=== PATIENT | male | born 1955 | race Caucasian/White ===

== ENCOUNTER → 2016-10-26 | Outpatient (CLI) | payer BC ==
[~2016-10-26] MED LIST: ASPI81TA25 PO; ATOR-24 PO; CLOP1TAB5 PO; LPR25 PO; NAPR-1169 PO; NTRSLP4 SL
--- NOTE | 2016-10-26 08:14 | DIAGNOSTIC IMAGING REPORT ---
ABDOMINAL ULTRASOUND, RIGHT UPPER QUADRANT HISTORY: Right upper quadrant pain.. COMPARISON: Abdomen and pelvis CT 04/26/2014. FINDINGS: Pancreas: The pancreatic head and tail are obscured by overlying bowel gas. The remaining portions of the pancreas are within normal limits. Liver: Unremarkable. Gallbladder: No gallbladder wall thickening. No gallstones. CBD: 5 mm. Right kidney: There is a 2.2 cm cyst within the lower pole. No hydronephrosis. The right renal cortex is slightly echogenic. There is a rotational anomaly within the right kidney, unchanged. IMPRESSION: 1. Normal gallbladder. No gallstones. 2. Rotated right kidney, unchanged. The right renal cortex is slightly echogenic suggestive of medical renal disease. 3. A 2.2 cm right renal cyst, unchanged. Electronically signed by: Chago Marin M.D. 10/26/2016 8:12 AM Dictated Date/Time: 10/26/2016 8:10 AM
[2016-10-26 09:32] LABS: BASO % 0.3 %; BASO ABS # 0.03 K/uL (0-0.2); COMPLETE YES; EOS % 1.8 %; HEMATOCRIT 42.5 % (42-52); IG% 0.5 %; LYMPH % 29.6 %; LYMPH ABS # 3.42 K/uL (1.2-3.4); MEAN CELL VOLUME 95.3 fL (80-100); MEAN CORPUSCULAR HEMOGLOBIN 34.1 pg (25-34); MEAN CORPUSCULAR HGB CONC 35.8 g/dl (32-36); MEAN PLATELET VOLUME 10.1 fL (7.4-10.4); MONO % 7.8 %; PLATELET COUNT 258 K/uL (130-400); RED BLOOD COUNT 4.46 M/uL (4.7-6.1); WHITE BLOOD COUNT 11.56 K/uL (4.8-10.8)
[2016-10-26 10:16] LABS: ALB/GLOB RATIO 1.1 (0.9-2); ALT/SGPT 45 U/L (12-78); AMYLASE 73 U/L (25-115); AST/SGOT 29 U/L (15-37); BLOOD UREA NITROGEN 10 mg/dl (7-18); BUN/CREATININE RATIO 8.3 (10-20); CALCIUM 9.9 mg/dl (8.5-10.1); CARBON DIOXIDE 27 mmol/L (21-32); CHLORIDE 103 mmol/L (98-107); CHOLESTEROL 156 mg/dl (0-200); GLUCOSE 95 mg/dl (70-99); POTASSIUM 4.7 mmol/L (3.5-5.1); SODIUM 136 mmol/L (136-145); TRIGLYCERIDES 92 mg/dl (0-150); VERY LOW DENSITY LIPOPROT CALC 18 mg/dl
[2016-10-26 10:18] LABS: ALKALINE PHOSPHATASE 96 U/L (45-117); CHOLESTEROL/HDL RATIO 2.9; HDL CHOLESTEROL 54 mg/dl
== END | disposition home or self-care (01) ==
LOC: C.ULTR 07:12
PROVIDERS: ATTEND Internal Medicine
DX: I25.10 Atherosclerotic heart disease of native coronary artery without angina pectoris (principal); E78.5 Hyperlipidemia, unspecified; N28.1 Cyst of kidney, acquired

== ENCOUNTER → 2016-11-01 | Outpatient (CLI) | payer BC ==
[~2016-11-01] MED LIST changes: +ORTHO JOINT ANESTHETIC ONE; +PERFLUTREN LIPID MICROSPHERE (DEFINITY) IV ONE
--- NOTE | 2016-11-02 13:15 | EXERCISE STRESS ECHO ---
*NOTICE TO RECEIVING [employer] This information is strictly Confidential and protected under [place] law. [place] law prohibits you from making any further disclosure of this information unless further disclosure is expressly permitted by the written consent of the person to whom it pertains or is authorized by law. A general authorization for the release of medical or other information is not sufficient for this purpose. Hospital accepts no responsibility if the information is made available to any other person, INCLUDING THE PATIENT. Interpretation Summary * Name: ANTONINO MAE JR Study Date: 11/01/2016 10:57 AM BP: 156/81 mmHg * Patient Location: [facility] HR: 86 * : 1955 (M/d/yyyy) Gender: Male Height: 70 in * Age: 61 yrs Ethnicity: [place] Weight: 170 lb * Ordering Physician: Esvin Vargas * Referring Physician: Esvin Vargas * Performed By: Kenyatta Nunez RDCS * * Reason For Study: Coronary Artery Disease, Dyspnea on Exertion * BSA: 1.9 m2 * -- Conclusions -- * Normal stress echocardiogram at 6.1 METS and a peak heart rate of >100% predicted maximum. * No exercise induced chest pain. * No ECG changes. * Baseline echocardiogram notes normal left ventricular systolic function and mild mitral regurgitation. Procedure Details * ECHOEX, CPT #[id number] * ECHO DOPPLER, CPT #[id number] * ECHO COLOR FLOW, CPT #[id number] * A contrast injection of Definity was performed to improve assessment of LV function. * Contrast was injected into an intravenous site in the left arm. * One vial of Definity ultrasound contrast was diluted in normal saline to a total volume of 10 ml. A total of '4' ml of solution was administered during imaging. * Lot # [id number] of Definity utilized for procedure. * Expiration date 1N. * The attending nurse who injected the contrast agent was Tamara Fink RN. Left Ventricle * The left ventricle is normal in size. * There is mild concentric left ventricular hypertrophy. * Ejection Fraction = 55-60%. * Left ventricular systolic function is normal. * Resting wall motion: Normal. Stress wall motion: Appropriate increase in Left ventricular systolic function and decrease in cavity size. No stress induced segmental wall motion abnormalities. Right Ventricle * The right ventricle is normal size. * The right ventricular systolic function is normal as assessed by tricuspid annular plane systolic excursion (TAPSE) (normal >1.5 cm). Atria * The left atrium is mildly dilated. * Right atrial size is normal. * No ASD detected; PFO is not assessed. Mitral Valve * The mitral valve is normal in structure and function. * There is no mitral valve stenosis. * There is mild mitral regurgitation. Tricuspid Valve * The tricuspid valve anatomy is normal. * There is no tricuspid stenosis. * There is mild tricuspid regurgitation. Aortic Valve * The aortic valve is normal in structure and function. * No hemodynamically significant valvular aortic stenosis. * There is no significant aortic regurgitation. Pulmonic Valve * The pulmonary valve is not well seen, but the Doppler examination is normal without significant regurgitation or stenosis. * Trace pulmonic valvular regurgitation. Great Vessels * The aortic root is normal size. * The pulmonary artery is not well visualized, but is probably normal size. Pericardium * There is no pericardial effusion. Stress Parameters * Normal baseline electrocardiogram. * Stress ECG: No ST changes. No arrhythmias. Left Ventricular Diastolic Function * Grade I diastolic dysfunction, (abnormal relaxation pattern). MMode 2D Measurements and Calculations IVSd 0.98 cm IVSs 1.2 cm LVIDd 4.0 cm LVIDs 3.0 cm LVPWd 0.83 cm LVPWs 1.3 cm IVS/LVPW 1.2 FS 26.1 % EDV(Teich) 71.2 ml ESV(Teich) 34.3 ml EF(Teich) 51.8 % EDV(cubed) 65.4 ml ESV(cubed) 26.4 ml EF(cubed) 59.7 % % IVS thick 22.1 % % LVPW thick 55.3 % LV mass(C)d 112.2 grams LV mass(C)dI 57.6 grams/m\S\2 LV mass(C)s 114.6 grams LV mass(C)sI 58.8 grams/m\S\2 SV(Teich) 36.9 ml SI(Teich) 18.9 ml/m\S\2 SV(cubed) 39.0 ml SI(cubed) 20.0 ml/m\S\2 Ao root diam 3.0 cm Ao root area 7.0 cm\S\2 ACS 2.3 cm LA dimension 3.0 cm LA/Ao 10 LVAd ap4 21.7 cm\S\2 LVLd ap4 7.4 cm EDV(MOD-sp4) 54.5 ml EDV(sp4-el) 53.9 ml LVAs ap4 12.0 cm\S\2 LVLs ap4 6.7 cm ESV(MOD-sp4) 19.1 ml ESV(sp4-el) 18.3 ml EF(MOD-sp4) 64.9 % EF(sp4-el) 66.1 % LVAd ap2 18.0 cm\S\2 LVLd ap2 7.2 cm EDV(MOD-sp2) 38.8 ml EDV(sp2-el) 38.4 ml LVAs ap2 9.8 cm\S\2 LVLs ap2 6.0 cm ESV(MOD-sp2) 13.8 ml ESV(sp2-el) 13.5 ml EF(MOD-sp2) 64.3 % EF(sp2-el) 64.9 % LVLd %diff -3.63 % EDV(MOD-bp) 46.7 ml LVLs %diff -11.21 % ESV(MOD-bp) 16.8 ml EF(MOD-bp) 64.1 % SV(MOD-sp4) 35.4 ml SI(MOD-sp4) 18.2 ml/m\S\2 SV(MOD-sp2) 25.0 ml SI(MOD-sp2) 12.8 ml/m\S\2 SV(MOD-bp) 29.9 ml SI(MOD-bp) 15.4 ml/m\S\2 SV(sp4-el) 35.6 ml SI(sp4-el) 18.3 ml/m\S\2 SV(sp2-el) 24.9 ml SI(sp2-el) 12.8 ml/m\S\2 Doppler Measurements and Calculations MV E max joshua 71.0 cm/sec MV A max joshua 64.0 cm/sec MV E/A 1.1 MV dec time 0.24 sec Ao V2 max 116.3 cm/sec Ao max PG 5.4 mmHg Ao max PG (full) 1.7 mmHg LV V1 max PG 3.7 mmHg LV V1 max 96.1 cm/sec PA V2 max 80.4 cm/sec PA max PG 2.6 mmHg
== END | disposition home or self-care (01) ==
LOC: C.CPL 10:34
PROVIDERS: ATTEND Internal Medicine
DX: I25.10 Atherosclerotic heart disease of native coronary artery without angina pectoris (principal); R06.00 Dyspnea, unspecified; R07.89 Other chest pain

== ENCOUNTER → 2016-11-23 | Outpatient (CLI) | payer BC ==
[~2016-11-23] MED LIST changes: -ORTHO JOINT ANESTHETIC ONE; -PERFLUTREN LIPID MICROSPHERE (DEFINITY) IV ONE
== END | disposition home or self-care (01) ==
LOC: C.LABSPEC 12:36
PROVIDERS: ATTEND Internal Medicine
DX: Z12.11 Encounter for screening for malignant neoplasm of colon (principal)

== ENCOUNTER → 2017-01-28 | Outpatient (CLI) | payer BC ==
[~2017-01-28] MED LIST changes: +OPTIRAY 320 IV PRN
[2017-01-28 13:36] LABS: HEMATOCRIT 42.1 % (42-52); MEAN CELL VOLUME 93.8 fL (80-100); MEAN CORPUSCULAR HEMOGLOBIN 33.9 pg (25-34); MEAN CORPUSCULAR HGB CONC 36.1 g/dl (32-36); MEAN PLATELET VOLUME 9.6 fL (7.4-10.4); PLATELET COUNT 277 K/uL (130-400); RED BLOOD COUNT 4.49 M/uL (4.7-6.1); WHITE BLOOD COUNT 13.58 K/uL (4.8-10.8)
[2017-01-28 13:57] LABS: BASO % 0.1 %; BASO ABS # 0.01 K/uL (0-0.2); COMPLETE YES; EOS % 0.9 %; IG% 0.4 %; LYMPH % 31.8 %; LYMPH ABS # 4.32 K/uL (1.2-3.4); NEUT % 58.8 %
[2017-01-28 14:31] LABS: ALT/SGPT 42 U/L (12-78); AST/SGOT 33 U/L (15-37); BLOOD UREA NITROGEN 11 mg/dl (7-18); BUN/CREATININE RATIO 8.6 (10-20); CALCIUM 9.2 mg/dl (8.5-10.1); CARBON DIOXIDE 24 mmol/L (21-32); CHLORIDE 100 mmol/L (98-107); GLUCOSE 86 mg/dl (70-99); POTASSIUM 4.2 mmol/L (3.5-5.1); SODIUM 132 mmol/L (136-145)
[2017-01-28 15:10] LABS: ALKALINE PHOSPHATASE 86 U/L (45-117)
--- NOTE | 2017-01-28 15:36 | DIAGNOSTIC IMAGING REPORT ---
CT OF THE ABDOMEN AND PELVIS WITH CONTRAST CLINICAL HISTORY: Right lower quadrant pain. Evaluate for acute appendicitis. COMPARISON STUDY: CT of the abdomen and pelvis April 26, 2014 and right upper quadrant ultrasound October 26, 2016. TECHNIQUE: Following IV administration of 93 mL of Optiray-320, axial images of the abdomen and pelvis were obtained from the lung bases to the proximal femurs. Images were reviewed in the axial, sagittal, and coronal planes. IV contrast was administered without complication. Oral contrast was administered. CT DOSE: 566.09 mGycm FINDINGS: Visualized portions of the lower chest demonstrate moderate emphysema. There is no pneumatosis, free air or portal venous gas. A 6 mm hypodense right hepatic lobe lesion is too small to characterize but was present on exam of April 26, 2014. This is considered benign. The spleen, adrenal glands and pancreas are normal. Several subcentimeter left renal lesions are too small to characterize but likely reflect cysts. A 2.3 cm hyperdense lesion arising from the lower pole the right kidney was shown to likely reflects a cyst on prior ultrasound. The appendix is normal. The caliber and wall thickness of small and large bowel are normal. There is colonic diverticulosis without evidence for acute diverticulitis. 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 Slight prominence of the right renal collecting system is unchanged. There is no hydronephrosis. There is no lymphadenopathy. IMPRESSION: 1. No acute process within the abdomen or pelvis. Normal appendix. 2. Colonic diverticulosis without evidence of acute diverticulitis. 3.. 2.3 cm hyperdense lesion arising from the lower pole of the right kidney. This likely reflects a hyperdense cyst but a follow-up nonemergent renal ultrasound is recommended for confirmation. Electronically signed by: Lenny Morrell M.D. 01/28/2017 3:34 PM Dictated Date/Time: 01/28/2017 3:27 PM
[2017-01-28 15:37] LABS: URINE APPEARANCE CLEAR (CLEAR); URINE BILIRUBIN NEG (NEG); URINE COLOR YELLOW; URINE NITRITE NEG (NEG); URINE PH 5.5 (4.5-7.5); URINE SPECIFIC GRAVITY 1.007 (1.000-1.030); UROBILINOGEN NEG (NEG)
[2017-01-28 15:41] LABS: MANUAL MICROSCOPIC REQUIRED? NO; REVIEW REQ? NO
== END | disposition home or self-care (01) ==
LOC: C.CTS 12:16
PROVIDERS: ATTEND Internal Medicine
DX: R10.31 Right lower quadrant pain (principal); K57.30 Diverticulosis of large intestine without perforation or abscess without bleeding; R93.421 Abnormal radiologic findings on diagnostic imaging of right kidney

== ENCOUNTER → 2017-08-06 | Outpatient (CLI) | payer BC ==
[~2017-08-06] MED LIST changes: -OPTIRAY 320 IV PRN
== END | disposition home or self-care (01) ==
LOC: C.LABSPEC 14:40
PROVIDERS: ATTEND Internal Medicine
DX: B35.1 Tinea unguium (principal)

== ENCOUNTER 2018-10-13 07:34 | Observation (INO) ==
--- NOTE | 2018-10-10 11:34 | Anesthesiology Consultation ---
Date of Service October 10, 2018 Assessment & Plan (1) Encounter for pre-operative examination: Chart Review Chart Review: Pending: Refer to Additional Notes / Consult section (Needs EKG DOS) Consults Requested none History Surgery Operation Date: 10/13/18 10:00 Proposed Procedures p Biopsy T9 - Alden Arriaga DO Allergies Allergy/AdvReac Type Severity Reaction Status Date / Time latex Allergy Intermediate RASH Verified 09/29/18 21:51 Penicillins Allergy Unknown Unknown Verified 09/29/18 21:51 Medications Home Medications Medication Instructions Recorded Confirmed Last Taken alprazolam 0.5 g PO HS 09/29/18 09/29/18 Unknown atorvastatin 80 mg PO DAILY 09/29/18 09/29/18 Unknown clopidogrel 75 mg PO DAILY 09/29/18 09/29/18 Unknown diphenhydramine-acetaminophen 1 tab PO HS 09/29/18 09/29/18 Unknown [Tylenol PM Extra Strength] guaifenesin [Mucinex] 600 mg PO HS 09/29/18 09/29/18 Unknown melatonin 10 mg PO HS 09/29/18 09/29/18 Unknown metoprolol succinate 25 mg PO DAILY 09/29/18 09/29/18 Unknown nitroglycerin [Nitrostat] 0.4 mg SUBLINGUAL DIRECTED PRN 09/29/18 09/29/18 Unknown prednisone 5 mg PO DIRECTED 09/29/18 09/29/18 Unknown Past Medical History Medical History CAD (coronary artery disease) Past Surgical History Surgical History H/O heart artery stent Social History Smoking Status: Never smoker Testing Chest X-Ray Date: 09/29/18 Findings: + NAD (No well-defined focal infiltrates) Laboratory Results Laboratory Tests 09/29/18 09/30/18 21:02 10:00 WBC 18.44 H Hgb 14.9 Plt Count 341 Sodium 130 L Potassium 3.7 Chloride 95 L Carbon Dioxide 25 BUN 18 Creatinine 1.42 H Glucose 126 H
--- NOTE | 2018-10-12 20:15 | History and Physical Report ---
DATE OF ADMISSION: 10/13/2018 CHIEF COMPLAINT: Back pain. HISTORY OF PRESENT ILLNESS: Alden is 63 years of age. I have known him for only 72 hours. He presented to my office with back pain. He is scheduled for a biopsy of the T9 vertebral body. PAST MEDICAL HISTORY: Hypertension, high cholesterol, arthritis, smoking history, also coronary artery disease. MEDICATIONS: Aspirin, Zocor, metoprolol, Naprosyn, nicotine, and Plavix. SOCIAL HISTORY: He is an ex-cigarette smoker. Minimal alcohol. REVIEW OF SYSTEMS: He denies any fevers, sweats, chills. He does have back pain. He denies nausea, vomiting, weight loss or gain. Denies chest pain, palpitations, but does have a history of coronary artery disease. He had no shortness of breath, asthma, or coughing. PHYSICAL EXAMINATION: GENERAL: He is 6 foot. He is 200 pounds. He is in distress as far as his pain. He is not short of breath or overall distress. He communicates perfectly. VITAL SIGNS: Blood pressure 130/80, pulse 80s, respiration 16. HEENT: Essentially normal. Pupils react to light and accommodation. Ear, nose, and throat clear. CARDIAC: Normal S1, S2, no S3. LUNGS: Clear to auscultation. No rales, rhonchi, wheezing. ABDOMEN: Soft, nontender. MUSCULOSKELETAL: pain, lumbar spine with percussion and in the thoracic spine with percussion. He has no gross neurological deficit. EXTREMITIES: 5/5 strength, good sensation, and good reflexes. IMAGES: Concerning for metastatic focus at the T9 vertebrae. He has a nodule on his chest CT scan. IMPRESSION: Metastatic disease of the spine. PLAN: Includes biopsy T9 vertebrae.
[~2018-10-13 07:34] MED LIST changes: -ASPI81TA25 PO; -ATOR-24 PO; +CLINDAMYCIN 600 MG/54 ML BAG IV SCH; -CLOP1TAB5 PO; -LPR25 PO; +LR 15ML/HR IV SCH; +LR 60ML/HR IV SCH; -NAPR-1169 PO; -NTRSLP4 SL
[2018-10-13] MEDS ORDERED: PROMETHAZINE HCL 12.5 MG in SODIUM CHLORIDE 0.9% 50 ML IV PRN (08:43)
[2018-10-13] MEDS ORDERED: ATROPINE SULFATE 0.1 MG/ML 5ML SYR IV PRN (08:43)
[2018-10-13] MEDS ORDERED: ePHEDrine sulfate 50 MG/ML AMP IV PRN (08:43)
[2018-10-13] MEDS ORDERED: PHENYLEPHRINE 100MCG/ML 5ML SYR IV PRN (08:43)
[2018-10-13] MEDS ORDERED: ONDANSETRON INJ 2 MG/ML 2 ML VIAL IV PRN (08:43)
[2018-10-13] MEDS ORDERED: MIDAZOLAM HCL 1 MG/ML 2ML VIAL ONE (09:08)
[2018-10-13] MEDS ORDERED: fentaNYL citrate 100 MCG/2 ML VIAL ONE ×2 (09:08)
[2018-10-13] MEDS ORDERED: GLYCOPYRROLATE 0.2 MG/ML VIAL ONE (09:16)
[2018-10-13] MEDS ORDERED: PROPOFOL IV EMULSION 10 MG/ML 20 ML VIAL IV ONE (09:16)
[2018-10-13] MEDS ORDERED: LIDOCAINE HCL 2% 2 ML VIAL/AMP(20MG/ML) INFIL ONE (09:16)
[2018-10-13] MEDS ORDERED: SUCCINYLCHOLINE CHLORIDE 20 MG/ML 10 ML VIAL ONE (09:16)
[2018-10-13] MEDS ORDERED: ONDANSETRON INJ 2 MG/ML 2 ML VIAL ONE (09:16)
[2018-10-13] MEDS ORDERED: NEOSTIGMINE METHYLSULFATE 5 MG/5 ML SYR ONE (09:16)
[2018-10-13] MEDS ORDERED: DEXAMETHASONE SOD INJ 4 MG/ML VIAL ONE (09:16)
[2018-10-13] MEDS ORDERED: CISATRACURIUM BESYLATE IV SOLN 2 MG/ML 10 ML VIAL IV ONE (09:16)
[2018-10-13] MEDS ORDERED: VANCOMYCIN HCL 1000MG/20ML VIAL ONE (10:22)
[2018-10-13] MEDS ORDERED: BUPIVACAINE 0.5 % 5 MG/1 ML MPF 30ML VIAL ONE (10:22)
[2018-10-13] MEDS ORDERED: GELATIN SPONGE SZ 100 ONE (10:22)
[2018-10-13] MEDS ORDERED: BACITRACIN INJ 50,000 UNIT VIAL ONE (10:22)
[2018-10-13] MEDS ORDERED: THROMBIN FOR SOLN 20000 UNIT KIT ONE (10:22)
--- NOTE | 2018-10-13 10:44 | History & Physical Bridge Note ---
Date of Service October 13, 2018 History & Physical Bridge Note I have examined the patient, reviewed the History & Physical and in the interval since the performance of the History & Physical I have noted the following changes of clinical significance: no changes noted
[2018-10-13] MEDS ORDERED: ePHEDrine sulfate 50 MG/ML SYR ONE (11:23)
--- NOTE | 2018-10-13 12:09 | Post Operative Brief Note ---
Immediate Post Op Note v1 Date of Surgery October 13, 2018 Pre & Post Diagnosis Operation Date: 10/13/18 10:00 <No data on this case meets the specified criteria> Procedure Operation Date: 10/13/18 10:00 <No data on this case meets the specified criteria> Surgeon DO Assistant love Neff Estimated Blood Loss 5 Findings Consistent with Post-Op Diagnosis Complications none Overlapping Procedure I was immediately available: during the entire case.
--- NOTE | 2018-10-13 12:26 | Fluoroscopy Report ---
FL spine 1V any level CLINICAL HISTORY: 63 years-old Male presenting with BIOPSY T9. TECHNIQUE: 1 fluoroscopic image(s) recorded as part of an intraoperative procedure. COMPARISON: CT of the chest from 10/10/2018. FINDINGS/IMPRESSION: Surgical material projects over the mid to lower thoracic spine. Please see surgical report for further details. Fluoroscopy dosage (mGy): 2.56. Fluoroscopy time: 15 seconds. Number or time of fluoroscopic spot images: 0. Electronically signed by: Rafita Pinto M.D. 10/13/2018 12:25 PM
[2018-10-13] MEDS: fentaNYL citrate 100 MCG/2 ML VIAL IV PRN ×4 (12:31→12:53)
[2018-10-13] MEDS: HYDROmorphone INJ 1 MG/ML SYRINGE IV PRN ×4 (12:59→13:14)
--- NOTE | 2018-10-13 13:07 | XRay Report ---
XR abdomen min 2V CLINICAL HISTORY: 63 years-old Male presenting with right upper abd pain. TECHNIQUE: Upright and left lateral decubitus views of the abdomen were obtained. COMPARISON: CT from 09/29/2018. FINDINGS: Nonobstructive bowel gas pattern. No gross pneumoperitoneum. Allowing for bowel gas and stool, no calcifications to suggest nephrolithiasis. Osseous structures normal. Lung bases clear. IMPRESSION: 1. No acute intra-abdominal pathology. Electronically signed by: Rafita Pinto M.D. 10/13/2018 1:05 PM
--- NOTE | 2018-10-13 13:32 | Anesthesiology Progress Note ---
Date of Service October 13, 2018 Anesthesia Post Procedure Vital Signs Vital Signs: Temp Pulse Pulse Resp BP BP Pulse Ox 10/13/18 13:06 65 11 L 149/81 H 100 10/13/18 13:05 66 16 99 10/13/18 13:01 36.5 C 69 11 L 140/93 99 10/13/18 13:00 66 10 L 100 10/13/18 12:56 96 H 14 150/88 H 100 10/13/18 12:55 71 12 100 10/13/18 12:52 82 14 10/13/18 12:51 81 24 138/106 H 10/13/18 12:50 84 12 100 10/13/18 12:46 73 8 L 134/87 100 10/13/18 12:45 67 13 100 10/13/18 12:41 68 16 168/79 H 100 10/13/18 12:40 72 13 100 10/13/18 12:36 72 12 184/87 H 100 10/13/18 12:35 80 13 100 10/13/18 12:31 71 13 157/93 H 100 10/13/18 12:29 72 13 159/98 H 100 10/13/18 12:26 74 20 171/100 H 100 10/13/18 12:25 74 17 100 10/13/18 12:24 71 17 100 10/13/18 12:22 36.7 C 71 71 15 154/87 H 154/87 H 100 10/13/18 08:10 36.4 C L 81 16 111/71 99 Pain Intensity Back: Pain Intensity: 4 Notes Mental Status: alert / awake / arousable Patient Amnestic to Procedure: Yes Nausea / Vomiting: adequately controlled Pain: adequately controlled Airway Patency, RR, SpO2: stable & adequate BP & HR: stable & adequate Hydration State: stable & adequate Anesthetic Complications: no major complications apparent
[2018-10-13] MEDS ORDERED: HYDROmorphone INJ 0.5 MG/0.5 ML SYR IV PRN (13:45)
[2018-10-13] MEDS ORDERED: NITROGLYCERIN SL 0.4 MG/TAB TAB SL PRN (13:45)
[2018-10-13 13:56] LABS: Amylase 51 U/L (25-115)
[2018-10-13] MEDS: ACETAMINOPHEN 500 MG TAB PO SCH ×2 (14:17→21:23)
[2018-10-13] MEDS: SODIUM CHLORIDE 0.9% 1000ML 1,000 ML IV SCH (14:17)
--- NOTE | 2018-10-13 16:52 | Operative Report ---
DATE OF OPERATION: 10/13/2018 PREOPERATIVE DIAGNOSIS: Spinal tumor thoracic 9. POSTOPERATIVE DIAGNOSIS: Spinal tumor thoracic 9. PROCEDURE: Included a biopsy of the T9 vertebra. SURGEON: Alden Arriaga DO ENTERTAINMENT DIRECTOR: BISHOP Valdez COMPLICATIONS: Zero. BLOOD LOSS: 5 mL. DESCRIPTION OF PROCEDURE: The patient was taken to the operating room and general intubated anesthetic provided to the patient, placed prone. I located the T9 vertebra because of the absent pedicle on the left hand side. He was prepped and draped sterile. I made a small skin incision, entered the pedicle from a posterior approach. I got 3 passes of bone, and 3 segments of bone were removed and sent to pathology. We irrigated, closed with nylon suture. Sterile dressing applied. The patient returned to PACU, improved, stable condition. Sponge and needle count correct. I was there for the entire procedure. I attest to the content of the Intraoperative Record and any orders documented therein. Any exception s are noted below.
[2018-10-13] MEDS: OXYCODONE HCL IR 5 MG TAB (IMMEDIATE RELEASE) PO PRN (19:51)
--- NOTE | 2018-10-13 20:40 | Consultation ---
Date of Consultation October 13, 2018 Assessment & Plan (1) Right upper quadrant pain: Mr. Kellogg is a 63-year-old gentleman with a history of hypertension, Hep B, hypercholesterolemia, coronary artery disease S/P [place] in 2012 with the placement of a stent, arthritis who underwent a biopsy of his T9 vertebrae with earlier today. The hospitalist team was consulted to manage his postoperative abdominal pain. -Pain resolved by the time I assessed the patient -Patient tolerating diet well -Abdominal x-ray without intra-abdominal pathology. Lipase normal. -We will check CBC and CMP with morning labs -Consider gallbladder ultrasound if pain recurs -Continue to monitor (2) Hypertension: -Continue home metoprolol (3) Hyperlipidemia: -Continue home atorvastatin (4) Coronary artery disease: -Continue home aspirin and Plavix Rest of management per orthopedics. Thank you for the consult. Supervising Physician Co-Signing Physician Notes Attending addendum: I have physically seen this patient, have supervised the medical residents activities, and agree with the H&P unless as otherwise noted. Assessment and Plan: Resolved right upper quadrant pain/ Tolerating diet well at the time of assessment. Normal KUB. Repeat laboratories in a.m. Continue GI prophylaxis. Gallbladder ultrasound is suggested if symptoms should recur in particular associated with eating. Remainder of orders and notations as noted. History of Present Illness Attending Physician: Alden Arriaga, DO History of Present Illness Mr. Kellogg is a 63-year-old gentleman with a history of hypertension, Hep B, hypercholesterolemia, coronary artery disease S/P NM in 2012 with the placement of a stent, arthritis who underwent a biopsy of his T9 vertebrae with earlier today. The hospitalist team was consulted to manage his postoperative abdominal pain. Mr. Kellogg states that after his procedure, he experienced sudden onset, 10/10 "horrifying" right upper quadrant pain. He states that he has never had this pain before. He reports that the pain resolved with analgesia. He states that he is currently not in any pain. He ate his lunch well, and denies recurrence of pain after that. He states that he is moving his bowels well and denies diarrhea or blood in his stool. He has had no history of gallbladder problems. He denies fever, chills, cough, chest pain, shortness of breath. He states that at this time, he feels well. Allergies Allergy/AdvReac Type Severity Reaction Status Date / Time latex Allergy Intermediate RASH Verified 10/10/18 14:06 Penicillins Allergy Unknown Unknown Verified 10/10/18 14:06 Home Medications Home Medications Medication Instructions Recorded Confirmed Type alprazolam 0.5 mg PO HS 09/29/18 10/13/18 History atorvastatin 80 mg PO HS 09/29/18 10/10/18 History clopidogrel 75 mg PO . HOLD 09/29/18 10/10/18 History diphenhydramine-acetaminophen 1 tab PO HS 09/29/18 10/10/18 History [Tylenol PM Extra Strength] guaifenesin [Mucinex] 600 mg PO HS 09/29/18 10/10/18 History melatonin 10 mg PO HS 09/29/18 10/10/18 History metoprolol succinate 25 mg PO HS 09/29/18 10/10/18 History nitroglycerin [Nitrostat] 0.4 mg SUBLINGUAL DIRECTED PRN 09/29/18 10/10/18 History aspirin [Aspir-81] 81 mg PO QAM 10/10/18 10/10/18 History hydrocodone-acetaminophen [[place]] 1 tab PO Q6H PRN #30 tab 10/14/18 Rx Patient History Medical History CAD (coronary artery disease) History of hepatitis B AND NO PROBLEMS SINCE Hyperlipidemia Hypertension Surgical History H/O heart artery stent 12/2012 NM -- HEART CATH X 1 STENT- DR SEPULVEDA History of colonoscopy Social History marital status: / Smoking Status: Never smoker Preferred Language: Samoan Visual Impairment: No Limitations Review of Systems Constitutional: no fever and no chills Respiratory: no cough, no hemoptysis and no wheezing Cardiovascular: no chest pain, no palpitations, no edema and no calf pain Gastrointestinal: + abdominal pain; no nausea, no vomiting and no change in stools Physical Exam 2 Vital Signs (Past 24 Hours): Last Vital Signs Temp 37.5 C 10/13/18 19:10 Pulse 66 10/13/18 20:00 Resp 17 10/13/18 19:10 BP 114/73 10/13/18 20:00 Pulse Ox 99 10/13/18 19:10 Constitutional: WD/WN, vitals as above Eyes: PERRL, conjunctivae normal, anicteric sclerae Respiratory: normal respiratory effort, lungs clear to auscultation Cardiovascular: RRR, no murmur, no edema Gastrointestinal (Abdomen): normal bowel sounds, soft, nontender, no hepatosplenomegaly Flanagan's sign negative. No flank pain. Skin: no rashes, warm and dry Results & Data Laboratory Results Laboratory Results - last 24 hr 10/13/18 10/13/18 08:21 13:15 Amylase 51 Lipase 167 Hepatitis C Ab Screen Neg Resident Activity Tracking Resident Involvement: Resident Care Provided Care Provided: Adult Hospital Medicine
[2018-10-13] MEDS ORDERED: ATORVASTATIN 40 MG TAB PO SCH (21:00)
[2018-10-13] MEDS ORDERED: ALPRAZolam 0.5 MG TABLET PO SCH (21:00)
[2018-10-13] MEDS ORDERED: guaiFENesin 600 MG TABCR PO SCH (21:00)
[2018-10-13] MEDS ORDERED: METOPROLOL SUCC 25MG EXT REL TAB PO SCH (21:00)
[2018-10-13] MEDS ORDERED: NON-FORMULARY MEDICATION (Melatonin [Melatonin] 10 MG) PO SCH (21:00)
[2018-10-14] MEDS: OXYCODONE HCL IR 5 MG TAB (IMMEDIATE RELEASE) PO PRN ×2 (03:33→13:35)
[2018-10-14] MEDS: SODIUM CHLORIDE 0.9% 1000ML 1,000 ML IV SCH (03:33)
[2018-10-14 05:43] LABS: Basophils # (auto) 0.01 K/uL (0-0.2); Basophils % (auto) 0.1 %; Eosinophils # (auto) 0.02 K/uL (0-0.5); Eosinophils % (auto) 0.1 %; Hematocrit (blood only) 39.4 % (42-52); Hemoglobin 13.6 g/dL (14.0-18.0); Immature Granulocytes # (auto) 0.06 K/uL (0.00-0.02); Immature Granulocytes % (auto) 0.4 %; Lymphocytes # (auto) 1.96 K/uL (1.2-3.4); Lymphocytes % (auto) 13.4 %; Mean Corpuscular Hgb Conc 34.5 g/dL (32-36); Mean Corpuscular Volume 97.3 fL (80-100); Mean Platelet Volume 9.5 fL (7.4-10.4); Monocytes # (auto) 0.85 K/uL (0.11-0.59); Monocytes % (auto) 5.8 %; Neutrophils # (auto) 11.72 K/uL (1.4-6.5); Neutrophils % (auto) 80.2 %; Platelet Count 286 K/uL (130-400); RDW Coefficient of Variation 13.6 % (11.5-14.5); RDW Standard Deviation 48.9 fL (36.4-46.3); Red Blood Count 4.05 M/uL (4.7-6.1); White Blood Count 14.62 K/uL (4.8-10.8)
[2018-10-14 06:09] LABS: Albumin Level 2.7 gm/dl (3.4-5.0); BUN Creatinine Ratio 6.3 (10-20); Calcium 8.3 mg/dl (8.5-10.1); Creatinine Clr Calc Pharmacy 68.6 ml/min; Est GFR (African American) 80.3; Est GFR (Non-African American) 69.3; Potassium 4.4 mmol/L (3.5-5.1)
[2018-10-14 06:12] LABS: Albumin Globulin Ratio 0.7 (0.9-2); Bilirubin,Total 0.4 mg/dl (0.1-1); Total Protein 6.7 gm/dl (6.4-8.2)
[2018-10-14] MEDS: ACETAMINOPHEN 500 MG TAB PO SCH (06:15)
[2018-10-14] MEDS ORDERED: ASPIRIN 81 MG ECTAB PO SCH (09:00)
[2018-10-14] MEDS ORDERED: CLOPIDOGREL BISULFATE 75 MG TAB PO SCH (09:00)
--- NOTE | 2018-10-14 09:52 | Discharge Summary ---
He is alert and oriented. Pain controlled. He has a very uneventful 24-hour course here in the hospital, actually less than 24 hours. Biopsy performed. He did have a bout of abdominal pain, which was concerning, yesterday after surgery which resolved. As of today, the [place] date of , he is discharged home in improved stable condition. Biopsies performed, we are awaiting that result, which would be done as an outpatient. He has a followup to see me in a followup appointment in 2 days, and he should see Dr. Stacy prior to discharge for his oncology beginning workup.
--- NOTE | 2018-10-14 14:29 | Consultation Report ---
DATE OF CONSULTATION: 10/14/2018 MEDICAL ONCOLOGY CONSULTATION REASON FOR CONSULTATION: T9 lytic bony lesion, pathology pending. HISTORY OF PRESENT ILLNESS: Alden is a very pleasant 63-year-old gentleman who was admitted to [facility] on Dr. Alden Arriaga's service to undergo a biopsy of a T9 vertebral lesion seen radiographically. Over the past several weeks, Alden had been struggling with semi-productive cough which was managed by his primary care physician with antibiotics. He subacutely developed midthoracic pain prompting another visit to his primary care physician and subsequent radiographs. Specifically, on 09/29/2018, the patient had undergone CT scan of the abdomen and pelvis because of complaint of abdominal pain, revealing an expansile lesion involving T9 and T10. The lesion measured 1.6 x 1.2 cm. The patient was provided a prescription of low-dose opioids which were minimally helpful and continued to experience a sharp, persistent pain with radiation down into his left flank. A chest x-ray was obtained on the same date, which revealed a mild bibasilar interstitial prominence, thought to be inflammatory. MRI of the thoracic spine again confirmed the presence of a T9/T10 vertebral body lesion. Based on these findings, the patient's primary provider then consulted Orthopedics and Dr. Alden Arriaga had alerted me to Mr. Kellogg' admission to undergo vertebral body biopsy as radiographically it appears Mr. Kellogg may be suffering an underlying neoplastic process. Other than his pain and semi-productive cough, the patient denies any alteration in appetite or overt weight loss. Again, pathology is pending at the time of dictation, but indeed radiographically, I believe Mr. Kellogg most likely suffers from metastatic lung cancer. He admittedly carries a long-term smoking history he estimated at 40 pack years. PAST MEDICAL HISTORY: Again, significant for coronary artery disease, hypertension, hyperlipidemia. PAST SURGICAL HISTORY: Status post coronary artery stenting. HOME MEDICATIONS: Include alprazolam 0.5 mg p.o. at bedtime, aspirin 81 mg p.o. daily, atorvastatin 80 mg p.o. at bedtime, clopidogrel 75 mg p.o. daily. He was utilizing [id number] antitussives including guaifenesin and Tylenol PM, hydrocodone, melatonin, metoprolol 25 mg p.o. at bedtime and p.r.n. sublingual nitroglycerin. ALLERGIES: TO PENICILLINS AND LATEX. PERSONAL HISTORY: The patient is full-time employed, he is , 70-apax-tniy smoking history, positive for social alcohol. FAMILY HISTORY: Noncontributory. REVIEW OF SYSTEMS: As per HPI, negative for fevers, chills or sweats, no anorexia or weight loss per se. SKIN: No rashes or lesions. No history of dermatoses. HEENT: Negative for headaches, lightheadedness or dizziness. No acute visual or hearing deficits. No sinus symptoms, sore throat or dysphagia. LYMPH: No history of lymphoproliferative disease. CARDIAC: Positive history of coronary artery disease. No current angina or palpitations. PULMONARY: Negative for COPD. He previously complained of semi-productive cough. Denies any hemoptysis. He is not acutely dyspneic on exertion. GASTROINTESTINAL: Negative for abdominal pain, nausea, vomiting, diarrhea or constipation, hematochezia or melena stools. GENITOURINARY: No hematuria, dysuria, or urinary incontinence. PSYCHIATRIC: Negative for anxiety, depression or psychoses. ENDOCRINE: Negative for diabetes or thyroid disease. NEUROLOGIC: Negative for seizure, stroke, or migraine headache. HEMATOLOGIC: Negative for anemia, thrombophilia or bleeding diathesis by history. PHYSICAL EXAMINATION: GENERAL: A well-developed and nourished 63-year-old gentleman, awake, alert and appropriate, in no acute distress. VITAL SIGNS: Temperature 36.6, pulse 66, respiratory rate 16, blood pressure 100/68. SKIN: Warm, dry, noncyanotic without petechia, rash or ecchymosis. HEENT: Head is atraumatic, normocephalic. Eyes PERRLA, EOMI. Sclerae nonicteric. No conjunctival injection. Nares patent without rhinorrhea or discharge. Throat is clear. Tongue is midline. Mucous membranes are moist. NECK: Supple without JVD or thyromegaly. LYMPH: No cervical, supraclavicular, axillary or inguinal palpable nodes. HEART: Regular rate and rhythm. No clicks, rubs, murmurs or gallops. LUNGS: Clear to auscultation bilaterally. No rales or rhonchi appreciated. ABDOMEN: Soft, nontender, nondistended, without palpable hepatosplenomegaly. EXTREMITIES: No calf tenderness or swelling. No clubbing, cyanosis or edema. Pulses and strength are equal in all 4 quadrants. NEUROLOGICAL: He is awake, alert and oriented x3. Cranial nerves are intact. No gross motor or sensory deficits noted. LABORATORY DATA: WBC count 14,620; hemoglobin 13.6; platelet count 286,000. Sodium 136, potassium 4.4, chloride 106, carbon dioxide 22, BUN 7, creatinine 1.33. IMPRESSION: 1. Subacute onset mid thoracic pain/lytic bony lesion. 2. A 2.5 cm spiculated lesion involving the right upper lobe. 3. Status post T9/T10 bone biopsy. PLAN: I had the pleasure of meeting Mr. Kellogg today at bedside. I was alerted to his clinical situation by Dr. Arriaga before the with intentions to bring him in for biopsy. The patient agreed to undergo biopsy yesterday and will be sent home today. Radiographically, there is a significant suspicion for an underlying neoplastic process most likely lung cancer. We will await pathology from bone biopsy which should be available this coming Saturday. If my suspicions are confirmed, we will plan to proceed with salvage chemotherapy. I would ask pathology to analyze the tumor for PD-L1, ROS1, EGFR and ALK. Mr. Kellogg' pain seems to be well controlled and would send him home with the appropriate opioids. Perhaps we will also consider radiation oncology consult once I see him in followup if his pain remains uncontrolled. Clearly, he will require salvage therapy; however, we will not engage in discussion regarding his overall prognosis until pathology is confirmed. From medical oncology standpoint, I see no reason why he cannot go to home today. I will ensure followup is scheduled in the next week or so. Thank you very much for allowing me to participate in his care. If you have any questions or concerns, feel free to contact me at any time. AMI
--- NOTE | 2018-10-14 15:49 | Hospitalist Progress Note ---
Date of Service October 14, 2018 Assessment & Plan (1) Right upper quadrant pain: Resolved This appears to have been transient, and labs and diagnostics have had no yield. More than likely it was some type of either intestinal spasm, temporary biliary spasm that was medication induced, or possibly even radicular pain from T9 that quickly abated We discussed ongoing vigilance for symptoms, and then further follow-up should they recur. He is medically stable to be discharged home, and I discussed this with orthopedics (2) Hypertension: Okay to go home on his same home meds (3) Coronary artery disease: Same as above, okay to go home on his same home meds (4) Hyperlipidemia: Home meds Subjective He is feeling better. I see him at the same time as Dr. Arriaga, and we discussed the patient's situation. He notes no further abdominal pain. He also notes no preceding abdominal pain of that type. He does note a vague left- sided pain around his lower part of his rib cage whenever he lays on that side when he sleeps, but the pain that got his attention was on the right side, and for more severe. He is eating okay and had no recurrence. Dr. Arriaga notes he has had a few bowel movements. Review of Systems All systems reviewed & are unremarkable except as noted in HPI & below Physical Exam 2 Vital Signs (Past 24 Hours): Last Vital Signs Temp 36.6 C 10/14/18 13:00 Pulse 66 10/14/18 13:00 Resp 16 10/14/18 13:00 BP 100/68 10/14/18 13:00 Pulse Ox 98 10/14/18 13:00 Physical Exam: General he is awake alert oriented x3, pleasant no acute distress. HEENT normocephalic atraumatic mucous membranes are moist. Lungs are unlabored no accessory muscle use distended nontender no masses or organomegaly, no guarding no rebound no rigidity
== END 2018-10-14 14:00 | disposition home or self-care (01) ==
LOC: ASU 07:34 → 3W 07:34

== ENCOUNTER 2018-12-03 09:57 | Inpatient (IN) ==
--- NOTE | 2018-11-28 11:49 | Anesthesiology Consultation ---
Date of Service November 28, 2018 Assessment & Plan (1) Encounter for pre-operative examination: Plan: Cardio 05/06/18: "He remains stable from a cardiac standpoint -- he is physically active on a daily basis and has not had any limiting cardiopulmonary symptoms. He has not experienced any angina pectoris or anginal equivalent symptoms, overt signs or symptoms of heart failure, nor has he had any symptoms suggestive of dysrhythmia. He remains compliant with his medications and has not had any adverse side effects or bleeding complications." Chart Review Chart Review: Acceptable Risk for Surgery and Patient NOT seen in Pre Admission Testing History Surgery Operation Date: 12/03/18 11:30 Proposed Procedures p Right Robotic Video Assisted Thoracoscopic with Upper Lobe Wedge Resection, - Ryder Taylor MD, FACS s Navigational Bronchoscopy with Indocyanine Green Dye - Ryder Taylor MD , FACS Height/Weight Height: 5 ft 10 in Weight: 68.039 kg Allergies Allergy/AdvReac Type Severity Reaction Status Date / Time latex Allergy Intermediate RASH Verified 11/26/18 15:06 Penicillins Allergy Unknown MOUTH LIPS Verified 11/26/18 15:06 AND TONGUE SWELLING bee venom protein (honey bee) AdvReac Intermediate SWELLING, Verified 11/26/18 15:06 THROAT SWELLING Medications Home Medications Medication Instructions Recorded Confirmed Last Taken atorvastatin 80 mg PO HS 09/29/18 11/26/18 11/10/18 19:30 clopidogrel 75 mg PO QAM 09/29/18 11/26/18 11/06/18 19:00 guaifenesin [Mucinex] 600 mg PO HS 09/29/18 11/26/18 11/10/18 19:30 metoprolol succinate 25 mg PO HS 09/29/18 11/26/18 11/10/18 17:30 nitroglycerin [Nitrostat] 0.4 mg SUBLINGUAL DIRECTED PRN 09/29/18 11/26/18 Unknown aspirin [Aspir-81] 81 mg PO QAM 10/10/18 11/26/18 11/11/18 04:30 alprazolam 0.5 mg tablet 0.5 mg PO HS PRN 10/31/18 11/26/18 10/24/18 oxycodone 5 - 10 mg PO Q4H PRN 11/07/18 11/26/18 11/11/18 04:15 fentanyl 1 patch TRANSDERMAL Q72H 11/26/18 11/26/18 Unknown pantoprazole 40 mg PO DAILY PRN 11/26/18 11/26/18 Unknown prochlorperazine maleate 10 mg PO Q6H PRN 11/26/18 11/26/18 Unknown Past Medical History Medical History CAD (coronary artery disease) MID RCA BMS X 1 (2012) COPD (chronic obstructive pulmonary disease) with emphysema (Acute) Carotid artery stenosis CARDIO MONITORING. 50-69% stenosis in J[place]GE, <50% in [place]ICA per 2016 doppler. History of hepatitis B "NO PROBLEMS SINCE" PER RN INTERVIEW; NO FURTHER DETAILS Hyperlipidemia Hypertension Lung mass REASON FOR PROCEDURE; METASTATIC CARCINOMA ON T9 BIOPSY 10/13/18 Pre-diabetes NO MEDS SOB (shortness of breath) on exertion Past Family History Family History Mother , age 85 Old age Father , age 85 Old age Brother No problems noted. Brother , still born No problems noted. Sister No problems noted. Sister No problems noted. Daughter No problems noted. Daughter No problems noted. Son Drug addiction Uncle , 46 Colon cancer Past Surgical History Surgical History H/O heart artery stent MID RCA BMS X 1 (2012) History of tonsillectomy (Acute) History of biopsy T9 BIOPSY= 10/13/18= GRADE 2 VIEW, MAC 4, ETT 7.5 AT [facility] History of bronchoscopy WITH BIOPSY History of colonoscopy History of procedure for peripheral vascular disease PORT PLACEMENT-IN PLACE Past Anesthesia History EBUS, navigational bronch 11/07/18: MAC 4, ETT 8.5 x 1 attempt. GV 2 with anterior/cephalid pressure. Social History Smoking Status: Current every day smoker tobacco type: cigarettes Smoking cigarettes per day: 1 PPD Do You Dip or Chew Tobacco: No Hx Alcohol Use: Yes Alcohol type: beer alcohol intake frequency: holidays/special occasions only Hx Substance Use: No substance use type: does not use Testing Electrocardiogram Date: 10/10/18 Findings: + NSR @ (81) Chest X-Ray Date: 11/11/18 1. A left subclavian central venous infusion port is new from previous. No pneumothorax is seen post procedure. 2. Emphysema. 3. A right upper lobe lesion and fiducial are identified. Stress Test Date: 11/01/16 Type: exercise "Normal" stress ECHO at >100% MPHR. 6.1 METS. No chest pain. No ECG changes. Mild MR/TR. Grade I DD. EF 55-60%. Cardiac Catheterization 1. Mildly elevated LVEDP. 2. Severe mid RCA stenosis. 3. Successful intervention to mid RCA stenosis with deployment of abare-metal stent. 4. Mild atherosclerotic disease of the left anterior descending coronaryartery. 5. Moderate mid left circumflex stenosis. 6. Normal left ventricular systolic function and wall motion. 7. Flow from the posterior descending artery to what appeared to be a verysmall caliber posterolateral-type branch. However, there was no evidence ofany obstructed posterolateral arising from the distal left circumflex. Laboratory Results Laboratory Tests 10/14/18 10/14/18 05:18 05:18 WBC 14.62 H Hgb 13.6 L Hct 39.4 L Plt Count 286 Sodium 136 Potassium 4.4 Chloride 106 Carbon Dioxide 22 BUN 7 Creatinine 1.13 Glucose 133 H
[~2018-12-03 09:57] MED LIST changes: -CLINDAMYCIN 600 MG/54 ML BAG IV SCH; +DEXAMETHASONE SOD INJ 4 MG/ML VIAL ONE; +GLYCOPYRROLATE 0.2 MG/ML VIAL ONE; +LIDOCAINE HCL 2% 2 ML VIAL/AMP(20MG/ML) INFIL ONE; -LR 60ML/HR IV SCH; +MIDAZOLAM HCL 1 MG/ML 2ML VIAL ONE; +NEOSTIGMINE METHYLSULFATE 5 MG/5 ML SYR ONE; +ONDANSETRON INJ 2 MG/ML 2 ML VIAL ONE; +PHENYLEPHRINE HCL 10 MG/ML VIAL ONE; +PROPOFOL IV EMULSION 10 MG/ML 20 ML VIAL IV ONE; +SUCCINYLCHOLINE CHLORIDE 20 MG/ML 10 ML VIAL ONE; +ePHEDrine sulfate 50 MG/ML AMP ONE; +fentaNYL citrate 100 MCG/2 ML VIAL ONE
[2018-12-03] MEDS ORDERED: MEPERIDINE HCL 25 MG/ML CARP IV PRN (10:32)
[2018-12-03] MEDS ORDERED: ATROPINE SULFATE 0.1 MG/ML 10ML SYR IV PRN (10:32)
[2018-12-03] MEDS ORDERED: PHENYLEPHRINE 100MCG/ML 5ML SYR IV PRN (10:32)
[2018-12-03] MEDS ORDERED: LABETALOL HCL IV 5 MG/ML 20ML IV PRN (10:32)
[2018-12-03] MEDS ORDERED: ePHEDrine sulfate 50 MG/ML AMP IV PRN (10:32)
[2018-12-03] MEDS ORDERED: ONDANSETRON INJ 2 MG/ML 2 ML VIAL IV PRN ×2 (10:32→16:19)
[2018-12-03] MEDS ORDERED: BUPIVACAINE 0.5 % 5 MG/1 ML MPF 30ML VIAL ONE (10:48)
[2018-12-03] MEDS ORDERED: BUPIVACAINE LIPOSOME 1.3% 266 MG/20 ML VIAL ONE (10:49)
[2018-12-03] MEDS ORDERED: SODIUM CHLORIDE 0.9% PF 50 ML VIAL ONE (10:49)
--- NOTE | 2018-12-03 10:55 | History & Physical Bridge Note ---
Date of Service December 03, 2018 History & Physical Bridge Note I have examined the patient, reviewed the History & Physical and in the interval since the performance of the History & Physical I have noted the following changes of clinical significance: no changes noted
[2018-12-03] MEDS ORDERED: MIDAZOLAM HCL 1 MG/ML 2ML VIAL ONE (11:38)
[2018-12-03] MEDS: CLINDAMYCIN 900 MG in DEXTROSE 5% 100 ML IV SCH ×2 (12:05→16:52)
[2018-12-03] MEDS ORDERED: INDOCYANINE GREEN 25 MG/10 ML INJ ONE (12:15)
--- NOTE | 2018-12-03 13:07 | Fluoroscopy Report ---
INTRAOPERATIVE RADIOGRAPH CLINICAL HISTORY: Right-sided bronchoscopy. Fluoroscopy time: 18 seconds. FINDINGS: A single spot fluoroscopic image from a right-sided bronchoscopy is correlated with chest C T dated 10/10/2018. A nodular density is present in the right upper lobe. The bronchoscope and a surg ical clip are noted in this region. There is no evidence of pneumothorax on this single fluoroscopic view. IMPRESSION: Intraoperative image from a right upper lobe bronchoscopy as above. See operative report for detailed findings. Electronically signed by: Elie Amos M.D. 12/03/2018 1:05 PM
--- NOTE | 2018-12-03 13:35 | Post Operative Brief Note ---
Immediate Post Op Note v1 Date of Surgery December 03, 2018 Pre & Post Diagnosis Operation Date: 12/03/18 11:30 Pre-Op Diagnosis: Right Upper Lobe Lung Mass Post-Op Diagnosis: Right Upper Lobe Lung Mass Procedure Operation Date: 12/03/18 11:30 Actual Procedures p Right Robotic Video Assisted Thoracoscopic with Right Upper Lobe Wedge Resection,(Right) - Ryder Taylor MD, FACS s Navigational Bronchoscopy with Indocyanine Green Dye - Ryder Taylor MD , FACS Surgeon Ryder Taylor MD, FACS Manufacturing Automation Engineer Carly ALAS Estimated Blood Loss 5 Findings Consistent with Post-Op Diagnosis Drains Chest Tube
[2018-12-03] MEDS ORDERED: METOCLOPRAMIDE HCL INJ 5 MG/ML 2 ML VIAL IV ONE (13:55)
[2018-12-03] MEDS: fentaNYL citrate 100 MCG/2 ML VIAL IV PRN ×4 (14:08→14:25)
--- NOTE | 2018-12-03 14:11 | XRay Report ---
XR chest 1V portable CLINICAL HISTORY: wedge resection COMPARISON STUDY: 11/11/2018 FINDINGS: Postsurgical changes are present on the right. There is a right-sided chest tube. There is evidence for a interval right upper lobe wedge resection.[ The fiducial marking has been removed. Inc reased density at the level of the biopsy site likely represents postsurgical edema/hemorrhage. There is no pneumothorax. There is basilar interstitial thickening similar to the prior study. There is a left-sided A-Port catheter. IMPRESSION: Interval right upper lobe wedge resection. No evidence of pneumothorax. Electronically signed by: Barron Dunlap M.D. 12/03/2018 2:10 PM
[2018-12-03] MEDS ORDERED: ROCURONIUM BROMIDE 10 MG/ML 5 ML VIAL ONE (14:24)
[2018-12-03] MEDS: HYDROmorphone INJ 1 MG/ML SYRINGE IV PRN ×2 (14:31→14:36)
[2018-12-03] MEDS ORDERED: ACETAMINOPHEN 1,000 MG/100 ML VIAL IV STA (14:43)
[2018-12-03] MEDS ORDERED: ACETAMINOPHEN 1000 MG/100 ML IV IV ONE (14:44)
--- NOTE | 2018-12-03 15:27 | Anesthesiology Progress Note ---
Date of Service December 03, 2018 Anesthesia Post Procedure Vital Signs Vital Signs: Temp Pulse Pulse Resp BP Pulse Ox 12/03/18 15:20 67 17 91/69 L 100 12/03/18 15:10 67 15 91/62 L 100 12/03/18 15:00 36.7 C 64 12 95/67 L 100 12/03/18 14:55 64 12 97/65 L 100 12/03/18 14:50 68 12 89/69 L 100 12/03/18 14:42 68 96/76 L 12/03/18 14:40 79 12 86/67 L 100 12/03/18 14:30 74 13 92/63 L 100 12/03/18 14:20 78 13 97/74 L 100 12/03/18 14:10 82 14 94/80 L 100 12/03/18 14:02 36 C L 89 22 122/79 100 12/03/18 10:18 36.3 C L 83 20 154/96 H 97 Pain Intensity Right Chest: Pain Intensity: 5 Notes Mental Status: alert / awake / arousable Patient Amnestic to Procedure: Yes Nausea / Vomiting: adequately controlled Pain: adequately controlled Airway Patency, RR, SpO2: stable & adequate BP & HR: stable & adequate Hydration State: stable & adequate Anesthetic Complications: no major complications apparent
[2018-12-03] MEDS ORDERED: ALPRAZolam 0.5 MG TABLET PO PRN (16:19)
[2018-12-03] MEDS ORDERED: PANTOprazole 40 MG TAB PO PRN (16:19)
[2018-12-03] MEDS ORDERED: PROCHLORPERAZINE MALEATE 10 MG TAB PO PRN (16:19)
[2018-12-03] MEDS ORDERED: NITROGLYCERIN SL 0.4 MG/TAB TAB SL PRN (16:19)
[2018-12-03] MEDS ORDERED: MoRPHine SULFATE 2 MG/ML CARP IV PRN (16:19)
[2018-12-03] MEDS: D5W AND 1/2NSS 1,000 ML IV SCH (17:05)
[2018-12-03 18:09] LABS: Hematocrit (blood only) 39.4 % (42-52); Hemoglobin 13.5 g/dL (14.0-18.0); Mean Corpuscular Hgb Conc 34.3 g/dL (32-36); Mean Corpuscular Volume 98.3 fL (80-100); Mean Platelet Volume 9.2 fL (7.4-10.4); Platelet Count 211 K/uL (130-400); RDW Coefficient of Variation 13.9 % (11.5-14.5); RDW Standard Deviation 50.1 fL (36.4-46.3); Red Blood Count 4.01 M/uL (4.7-6.1); White Blood Count 13.14 K/uL (4.8-10.8)
[2018-12-03] MEDS: ACETAMINOPHEN 1,000 MG/100 ML VIAL IV SCH (18:09)
[2018-12-03] MEDS: fentaNYL 25 MCG/HR TDSY TD SCH (18:10)
[2018-12-03 18:23] LABS: INR 1.1 (0.9-1.1); Prothrombin Time 11.1 Seconds (9.0-12.0)
[2018-12-03] MEDS: DOCUSATE SODIUM 100 MG CAP PO SCH ×2 (20:19→20:23)
[2018-12-03] MEDS: guaiFENesin 600 MG TABCR PO SCH (20:20)
[2018-12-03] MEDS: ATORVASTATIN 40 MG TAB PO SCH (20:20)
[2018-12-03] MEDS: METOPROLOL SUCC 25MG EXT REL TAB PO SCH (20:21)
[2018-12-03] MEDS: METOCLOPRAMIDE HCL INJ 5 MG/ML 2 ML VIAL IV SCH (21:34)
[2018-12-03] MEDS: MELATONIN 10 MG PO PRN (23:08)
[2018-12-03] MEDS: CHECK FENTANYL PATCH PLACEMENT SCH (23:53)
[2018-12-04] MEDS ORDERED: MELATONIN: ORDER AWAITING ACTION SCH
[2018-12-04] MEDS: ACETAMINOPHEN 1,000 MG/100 ML VIAL IV SCH (02:14)
[2018-12-04] MEDS: D5W AND 1/2NSS 1,000 ML IV SCH (02:15)
[2018-12-04] MEDS ORDERED: MoRPHine SULFATE 4 MG/ML 1 ML CARP\\VIAL ONE (06:02)
[2018-12-04] MEDS: METOCLOPRAMIDE HCL INJ 5 MG/ML 2 ML VIAL IV SCH ×2 (06:08→14:35)
[2018-12-04 06:32] LABS: Creatinine Clr Calc Pharmacy 59.7 ml/min; Est GFR (African American) 71.8; Est GFR (Non-African American) 61.9
[2018-12-04] MEDS: OXYCODONE HCL IR 5 MG TAB (IMMEDIATE RELEASE) PO PRN ×5 (07:11→23:43)
--- NOTE | 2018-12-04 07:11 | XRay Report ---
XR chest 1V portable CLINICAL HISTORY: wedge resection COMPARISON STUDY: 12/03/2018 FINDINGS: Postsurgical changes are present on the right. A right midlung zone airspace opacity likely represents postsurgical hemorrhage/edema. There is basilar residual thickening. There is a left side d A-Port catheter. There is a right-sided chest tube. There is a right-sided pneumothorax with a apic al pleural separation of 26 mm.[ There is a small amount of subcutaneous tissues emphysema on the rig ht. IMPRESSION: 1. Postsurgical changes on the right 2. Right sided pneumothorax with a pleural separation of 26 mm. Electronically signed by: Barron Dunlpa M.D. 12/04/2018 7:10 AM
--- NOTE | 2018-12-04 08:03 | Operative Report ---
DATE OF OPERATION: 12/03/2018 PREOPERATIVE DIAGNOSES: 1. Hypermetabolic mass, right upper lobe. 2. Probable metastatic carcinoma to 9th thoracic vertebra. POSTOPERATIVE DIAGNOSES: 1. Probable primary carcinoma, right upper lobe. 2. Probable metastatic lesion to 9th thoracic vertebra. PROCEDURE: 1. Navigational bronchoscopy with dye marking using indocyanine green. 2. Right robot-assisted thoracoscopic wedge resection of right upper lobe mass. SURGEON: Ryder Taylor MD CAR TRIMMER: BISHOP Fuchs (Mr. Mello was present at the bedside while I was at the console and closed the skin incisions at the conclusion). ANESTHESIA: General anesthesia, endotracheal intubation. INDICATION FOR PROCEDURE AND FINDINGS: This is an interesting 63-year-old male presenting with back pain and was found to have a metastatic lesion to his 9th thoracic vertebra. He underwent a needle biopsy and while it could be seen that this was a carcinoma, no other details or genomic markers or immunohistochemical stains could be done. We discussed this case at a multidisciplinary tumor conference and it was elected to proceed with a wedge resection. The patient is otherwise in good health and despite his cigarette smoking, would tolerate a wedge resection easily. We did discuss this multiple times with his oncologist as well as the patient and his family. On 12/03/2018, the patient was brought to the operating room and underwent uncomplicated navigational bronchoscopy. We did washings of the right upper lobe and really saw no other abnormalities except he had some scant amount of clear sputum, which was suctioned out. We then registered the airways using navigational bronchoscopy to go out to the periphery and then injected 1 mL of indocyanine green dye and lillian this. We then reintubated the patient with a double lumen tube and turned the patient in the left lateral decubitus position and a robot-assisted thoracoscopy was done with the use of the fluorescent light. When switching to the fluorescent light, we could easily see the indocyanine green. This area of the upper lobe was then grasped and using Endo-CHELSEA staplers, some reinforced and some not, we wedged this mass out. I reviewed this with Dr. Silvana Dumont and on frozen section, it certainly is a carcinoma. There was plenty of tissue to do genomics and immunohistochemical staining. The patient did receive an Exparel intercostal block. He tolerated it well and was extubated in the room. DESCRIPTION OF PROCEDURE: The patient was brought to the operating room and laid in supine position. General anesthesia was induced. Endotracheal intubation was performed. This was done with a single lumen tube. After appropriate timeout had been called and prophylactic antibiotics were given, the fiberoptic scope was placed. There was a scant amount of clear sputum, which was suctioned out. We then registered the airways and went out to the mass. I used a radial ultrasound probe. I really did not see much. It did appear that we were in this vicinity on fluoroscopy, however. A 1 mL of indocyanine green was then mixed with 1 mL of air and we then injected this into the area pointed towards the pleura, but not out to the pleura under fluoroscopic guidance. After this had been done, the scope was then removed. We saw no bleeding. The patient was then reintubated with a double lumen scope and placed in the left lateral decubitus position. Another timeout was called. One lung ventilation ensued and then we placed 5 mm scope a bit anterior to the mid axillary line at about the eighth interspace. Going extreme, there were no adhesions. We then put an 8 mm port anteriorly above the costal margin, another 8 mm port in the interspaces below, but about 12 cm away posteriorly. Assistance port was placed posteriorly a couple of interspaces below the camera between the camera port and the posterior port. We then went in and using the fluorescent light, we could easily see the indocyanine green light up. We then switched back to regular light and using a black staple load with reinforced staple line, we stapled under this several times taking small bites until we were able to remove this entire mass, which I could now feel after we stapled it. This was sent off in an Endobag to pathology where frozen section was being performed. I carefully inspected the staple line and did not see any bleeding or air leak. A 266 mg of Exparel were then mixed with 30 mL of 0.25% Marcaine and 250 mL of normal saline. This was injected into each of the 4 port sites prior to going in. It was also used to inject each interspace for an intercostal block from the 2nd to the 11th rib. This was done under direct visualization with a thoracoscope. The robot was then undocked. A 24-Maltese chest tube was placed to the anterior port and directed towards the apex. It was held in place with heavy silk suture. The other incisions were closed with 0 Vicryl in a single suture to reapproximate the muscle layers and then 4-0 Monocryl was used in a running subcuticular fashion to approximate the wound edges. There was really no air leak at the conclusion of the case. The patient tolerated well and was extubated in the room. I attest to the content of the Intraoperative Record and any orders documented therein. Any exception s are noted below.
[2018-12-04] MEDS: CHECK FENTANYL PATCH PLACEMENT SCH ×3 (08:15→23:39)
[2018-12-04] MEDS: MoRPHine SULFATE 4 MG/ML 1 ML CARP\\VIAL IV PRN ×5 (09:04→21:14)
[2018-12-04] MEDS: DOCUSATE SODIUM 100 MG CAP PO SCH ×2 (09:14→20:55)
[2018-12-04] MEDS: HEPARIN 100 UNIT/ML 5ML FLUSH FLUSH PRN ×5 (09:16→21:15)
[2018-12-04] MEDS: ASPIRIN 81 MG ECTAB PO SCH (09:20)
[2018-12-04] MEDS: ENOXAPARIN INJ 40 MG/0.4 ML SYR SQ SCH (09:24)
--- NOTE | 2018-12-04 10:22 | Anesthesiology Progress Note ---
Date of Service December 04, 2018 Anesthesia Post Procedure Vital Signs Vital Signs: Temp Pulse Pulse Resp BP BP Pulse Ox 12/04/18 08:00 36.7 C 57 L 18 102/64 95 12/04/18 04:00 36.9 C 54 L 18 89/51 L 95 12/04/18 01:19 36.6 C 58 L 18 93/60 L 95 12/04/18 00:00 36.5 C 69 18 86/61 L 93 12/03/18 22:37 36.3 C L 70 17 85/55 L 94 12/03/18 20:47 64 102/61 12/03/18 20:20 36.6 C 82 16 90/58 L 97 12/03/18 19:04 36.5 C 89 18 102/71 100 12/03/18 18:02 36.9 C 63 18 105/61 99 12/03/18 16:30 36.3 C L 65 16 99/65 L 98 12/03/18 16:00 36.4 C L 65 14 97/71 L 97 12/03/18 15:40 37 C 68 13 95/75 L 100 12/03/18 15:30 65 15 99/66 L 100 12/03/18 15:20 67 17 91/69 L 100 12/03/18 15:10 67 15 91/62 L 100 12/03/18 15:00 36.7 C 64 12 95/67 L 100 12/03/18 14:55 64 12 97/65 L 100 12/03/18 14:50 68 12 89/69 L 100 12/03/18 14:42 68 96/76 L 12/03/18 14:40 79 12 86/67 L 100 12/03/18 14:30 74 13 92/63 L 100 12/03/18 14:20 78 13 97/74 L 100 12/03/18 14:10 82 14 94/80 L 100 12/03/18 14:02 36 C L 89 22 122/79 100 Pain Intensity Right Chest: Pain Intensity: 5 Notes Mental Status: alert / awake / arousable Patient Amnestic to Procedure: Yes Nausea / Vomiting: adequately controlled Pain: adequately controlled Airway Patency, RR, SpO2: stable & adequate BP & HR: stable & adequate Hydration State: stable & adequate Anesthetic Complications: no major complications apparent and Pt Satisfied with anesthetic care
--- NOTE | 2018-12-04 11:06 | Progress Note ---
DATE: 12/04/2018 Mr. Kellogg is 1 day status post a thoracoscopic wedge resection of an apparent lung primary of the right upper lobe. He has done well. He is on room air. He really does not have much in the way of pain. The only problem is he has some very small air leak with a small pneumothorax. He is tolerating a diet. He is ambulating in the hallway. I will remove this tube in the morning in all likelihood and have him discharged. The final pathology is not back yet. The frozen section shows this to be a carcinoma.
[2018-12-04] MEDS: ACETAMINOPHEN SOL 650 MG/20.3 ML UDC PO SCH ×3 (12:48→23:39)
[2018-12-04] MEDS: METOPROLOL SUCC 25MG EXT REL TAB PO SCH (20:57)
[2018-12-04] MEDS: guaiFENesin 600 MG TABCR PO SCH (21:14)
[2018-12-04] MEDS: ATORVASTATIN 40 MG TAB PO SCH (21:14)
[2018-12-04] MEDS: MELATONIN 10 MG PO PRN (23:44)
[2018-12-05] MEDS: MoRPHine SULFATE 4 MG/ML 1 ML CARP\\VIAL IV PRN ×5 (03:05→21:22)
[2018-12-05] MEDS: OXYCODONE HCL IR 5 MG TAB (IMMEDIATE RELEASE) PO PRN ×4 (04:01→20:07)
[2018-12-05] MEDS: ACETAMINOPHEN SOL 650 MG/20.3 ML UDC PO SCH ×3 (06:01→17:36)
--- NOTE | 2018-12-05 07:59 | XRay Report ---
SINGLE VIEW CHEST CLINICAL HISTORY: Pneumothorax. FINDINGS: An AP, portable, upright chest radiograph is compared to study dated 12/04/2018 and correlat ed with chest CT dated 10/10/2018. The examination is degraded by portable technique and apical lordo tic positioning. A left subclavian central venous infusion port is unchanged in position. The cardio mediastinal silhouette is unremarkable. Emphysema and chronic interstitial thickening are similar to previous. There is postoperative change and volume loss from right upper lobe resection. Airspace opa cities in the right upper lung are unchanged. A right-sided chest tube is unchanged in position. A sm all right apical pneumothorax persists. Dependent atelectasis is noted. The skeletal structures are o steopenic. The bony thorax is grossly intact. Subcutaneous emphysema is noted along the right chest w all. IMPRESSION: 1. A right-sided chest tube is unchanged in position and a small right pneumothorax persists. 2. Emphysema and postoperative change from right upper lobe resection are again noted. 3. Airspace opacities in the right upper lung are unchanged. Electronically signed by: Elie Amos M.D. 12/05/2018 7:57 AM
[2018-12-05] MEDS: HEPARIN 100 UNIT/ML 5ML FLUSH FLUSH PRN ×2 (08:21→11:13)
[2018-12-05] MEDS: ASPIRIN 81 MG ECTAB PO SCH (09:03)
[2018-12-05] MEDS: ENOXAPARIN INJ 40 MG/0.4 ML SYR SQ SCH (09:03)
[2018-12-05] MEDS: DOCUSATE SODIUM 100 MG CAP PO SCH ×2 (09:03→21:14)
[2018-12-05] MEDS: CHECK FENTANYL PATCH PLACEMENT SCH ×2 (09:04→15:39)
--- NOTE | 2018-12-05 11:03 | XRay Report ---
XR chest 2V routine CLINICAL HISTORY: pneumothorax pneumothorax COMPARISON STUDY: 12/05/2018 FINDINGS: Right-sided pneumothorax unchanged. Right chest tube unchanged in location. Subcutaneous em physema is similar. Left lung is grossly clear. Interstitial change left lung base is stable. IMPRESSION: Unchanging right apical pneumothorax. Stable position of a right chest tube. The above report was generated using voice recognition software. It may contain grammatical, syntax or spelling errors. Electronically signed by: Jesse Perez M.D. 12/05/2018 11:02 AM
--- NOTE | 2018-12-05 16:30 | Progress Note ---
DATE: 12/05/2018 Mr. Kellogg is seen today on 12/05/2018, 2 days after we did a rather generous wedge resection of an adenocarcinoma of the right upper lobe. The tumor is small and it we have clean margins; however, he has stage IV disease. The patient still had a small air leak this morning and a small pneumothorax. I placed a Heimlich valve on him and it does not appear he has a leak now. He is not draining any fluid. Ambulating in the hallway. I am going to let him go home tomorrow. I am hopeful I can get the chest tube out before that. ENEIDAD
[2018-12-05] MEDS: ATORVASTATIN 40 MG TAB PO SCH (21:14)
[2018-12-05] MEDS: guaiFENesin 600 MG TABCR PO SCH (21:14)
[2018-12-06] MEDS: OXYCODONE HCL IR 5 MG TAB (IMMEDIATE RELEASE) PO PRN ×3 (00:14→10:09)
[2018-12-06] MEDS: ACETAMINOPHEN SOL 650 MG/20.3 ML UDC PO SCH ×3 (00:14→11:46)
[2018-12-06] MEDS: METOPROLOL SUCC 25MG EXT REL TAB PO SCH (00:14)
[2018-12-06] MEDS: MELATONIN 10 MG PO PRN (00:14)
[2018-12-06] MEDS: CHECK FENTANYL PATCH PLACEMENT SCH ×2 (00:15→09:00)
[2018-12-06] MEDS: HEPARIN 100 UNIT/ML 5ML FLUSH FLUSH PRN ×2 (03:25→07:59)
[2018-12-06] MEDS: MoRPHine SULFATE 4 MG/ML 1 ML CARP\\VIAL IV PRN ×2 (03:25→07:58)
--- NOTE | 2018-12-06 06:56 | XRay Report ---
XR chest 1V portable CLINICAL HISTORY: lung cancer COMPARISON STUDY: Chest radiograph December 05, 2018. FINDINGS: A left subclavian Boeedo-r-Lyoe and right chest tube in place. A small right apical pneumot horax has slightly decreased in size. There are postoperative findings within the right upper lung wi th mild opacity. There is minimal left basilar opacity which favors atelectasis. There is no evidence for pulmonary edema. IMPRESSION: Right chest tube in place. Slight decrease in size of a small right apical pneumothorax. Electronically signed by: Lenny Morrell M.D. 12/06/2018 6:54 AM
[2018-12-06 08:38] LABS: Hemoglobin 12.5 g/dL (14.0-18.0); Mean Corpuscular Hgb Conc 33.8 g/dL (32-36); Mean Platelet Volume 9.3 fL (7.4-10.4); Platelet Count 218 K/uL (130-400); RDW Coefficient of Variation 14.1 % (11.5-14.5); RDW Standard Deviation 51.2 fL (36.4-46.3); White Blood Count 6.36 K/uL (4.8-10.8)
[2018-12-06] MEDS: ENOXAPARIN INJ 40 MG/0.4 ML SYR SQ SCH (09:01)
[2018-12-06] MEDS: DOCUSATE SODIUM 100 MG CAP PO SCH (09:01)
[2018-12-06] MEDS: ASPIRIN 81 MG ECTAB PO SCH (09:01)
--- NOTE | 2018-12-06 10:55 | XRay Report ---
XR chest 1V portable CLINICAL HISTORY: chest tube removal COMPARISON STUDY: Chest radiograph performed earlier today. FINDINGS: Left subclavian Iokjvg-o-Xrwg remains in place. Right chest tube has been removed. A small right apical pneumothorax is similar to prior exam for postoperative finding within the right lung ar e noted. There is minimal left basilar opacity. There is no left pneumothorax. There is no evidence f or pulmonary edema. IMPRESSION: No change in a small right apical pneumothorax following chest tube removal. Electronically signed by: Lenny Morrell M.D. 12/06/2018 10:53 AM
[2018-12-06] MEDS: fentaNYL 25 MCG/HR TDSY TD SCH (12:10)
--- NOTE | 2018-12-06 23:35 | Discharge Summary ---
DISCHARGE DIAGNOSIS: Adenocarcinoma, right upper lobe (stage IV). HOSPITAL COURSE: This is a 63-year-old male who presented with back pain, was found to have metastases to his 9th thoracic vertebrae. This was diagnosed by Dr. Alden Arriaga with a needle; however, this just showed a carcinoma. This patient was presented to our multidisciplinary cancer conference. After much discussion, given the fact that he was otherwise young and healthy, we would proceed with wedge resection. I did try to get a diagnosis by doing an endobronchial ultrasound and a navigational bronchoscopy. The lymph nodes were clear of metastatic disease, but we did not get an answer from this rather peripheral lesion. On 12/03/2018, patient brought to the operating room and this mass was marked with indocyanine green. We then used the robot and using the fluorescence we were able to identify the mass. We wedged it out. It is a poorly differentiated adenocarcinoma. Appropriate studies have been sent out. He generally did well, but I was quite surprised he had an air leak after surgery. This resolved on postop day 3. We removed his chest tube and discharged him home. His margins were negative. I will see him back in the office in a week with an x-ray. He tolerated it quite well and looked good at time of his discharge.
== END 2018-12-06 12:45 | disposition home or self-care (01) | DRG 167 ==
LOC: ASU 09:57 → 3W 13:44

== ENCOUNTER 2019-05-24 14:14 | Inpatient (IN) ==
[2019-05-24] MEDS ORDERED: ONDANSETRON INJ 2 MG/ML 2 ML VIAL IV PRN (14:48)
[2019-05-24] MEDS ORDERED: ACETAMINOPHEN 325 MG TAB PO PRN (14:48)
[2019-05-24] MEDS ORDERED: NITROGLYCERIN SL 0.4 MG/TAB TAB SL PRN ×2 (14:48→14:58)
[2019-05-24] MEDS ORDERED: PANTOprazole 40 MG TAB PO PRN (14:58)
[2019-05-24] MEDS ORDERED: ALPRAZolam 0.5 MG TABLET PO PRN (14:58)
[2019-05-24] MEDS ORDERED: LORazepam 0.5 MG/1 ML VIAL IV PRN (15:00)
[2019-05-24] MEDS ORDERED: fentaNYL 25 MCG/HR TDSY TD SCH (15:00)
[2019-05-24] MEDS ORDERED: MoRPHine SULFATE 2 MG/ML CARP IV PRN (15:00)
[2019-05-24] MEDS ORDERED: PHARMACIST DISCHARGE MED REC CONSULT PRN (15:02)
--- NOTE | 2019-05-24 15:16 | History & Physical Report ---
Date of Service May 24, 2019 Assessment & Plan (1) Stroke-like symptoms: This patient has strokelike symptoms with focal neurological deficit however my concern is that his previous malignancy was in his thoracic spine. Although I reviewed the PET scan from May 11 my fear would be that this would be a recurrence of malignancy possibly in his cervical spine causing the neuropathy. Patient will be scheduled for MRI scans of his brain C-spine and T- spine. To be on the inpatient stroke protocol without thrombolytic therapy as he is far outside the time window for anything such as that. His CT scan from 1 day prior did not show any injury and there was some previous concern of rectal bleeding prompting stopping of his Plavix. Patient does not have any facial associated drooping and does not appear to have any swallowing or talking problems (2) Hypertension: Patient remains on metoprolol for blood pressure control For cardiac risk prevention Plavix is recently be discontinued he is on a baby aspirin (3) Hyperlipidemia: Typically takes atorvastatin was also secondary risk prevention for coronary artery disease this is being held (4) History of hepatitis B: (5) Lung mass: Biopsy from November 2018 showed us to be a poorly differentiated adenocarcinoma variant with with solid and pseudo-squamous morphology as mentioned the patient also had thoracic spine wedge resection biopsy showing metastatic carcinoma this was done October 13, 2018 (6) COPD (chronic obstructive pulmonary disease) with emphysema: Patient feels that he has been undertreated for his COPD he is continued daily smoker I counseled him on cessation he takes guaifenesin at this time but no scheduled inhalers will begin him on low-dose Advair at this time (7) Pre-diabetes: Patient has prediabetes listed in his chart we will watch his blood glucose and only needs to insulin if his glucose is over 180 (8) Lymphocytic colitis: Patient had a colonoscopy with biopsy showing lymphocytic colitis he takes budesonide for this. Because he is on chronic steroid use we will watch him for steroid deficiency or [place]'s crisis and then convert him to hydrocortisone if need be (9) DVT prophylaxis: Heparin abuse for DVT prevention although Lovenox is better and malignancy associated DVT prevention however the fact that the patient may require further interventional studies or procedures will use heparin as it is a shorter half- life and can be stopped more quickly History of Present Illness Primary Care Provider: Esvin Peña MD 63-year-old male with a history of adenocarcinoma of the lung recently diagnosed by mets to his thoracic spine presents with a 4-day history of left arm weakness. Patient does note some blood in his stool recently cardiology is discontinued his Plavix. Patient feels weak and tired but is 2 weeks out from chemotherapy and has pancytopenia currently although not neutropenia. Patient also recently had a PET scan 3 weeks ago which he was told looked good The patient's daughter's wedding dental office receptionist was 05/23 and the patient now does not wish to be admitted but he returned today 05/24 for admission and further evaluation of his focal neurological deficit.. His initial evaluation with CT scan of his head was without acute changes from 05/23 Patient denies any other issues he does have chronic respiratory failure from COPD has been profoundly weak since his chemotherapy. He previously has [facility] and had a falling out with him and currently receives his chemotherapeutic care at the [facility] system in [place]. Allergies Allergy/AdvReac Type Severity Reaction Status Date / Time latex Allergy Intermediate RASH Verified 05/23/19 14:28 Penicillins Allergy Intermediate MOUTH LIPS Verified 05/23/19 14:28 AND TONGUE SWELLING bee venom protein (honey bee) AdvReac Intermediate SWELLING, Verified 05/23/19 14:28 THROAT SWELLING Home Medications Home Medications Medication Instructions Recorded Confirmed Type clopidogrel 75 mg PO QAM 09/29/18 05/23/19 History guaifenesin [Mucinex] 600 mg PO HS 09/29/18 05/23/19 History metoprolol succinate 25 mg PO HS 09/29/18 05/23/19 History nitroglycerin [Nitrostat] 0.4 mg SUBLINGUAL DIRECTED PRN 09/29/18 05/23/19 History aspirin [Aspir-81] 81 mg PO QAM 10/10/18 05/23/19 History alprazolam 0.5 mg tablet 0.5 mg PO HS PRN 10/31/18 05/23/19 History oxycodone 5 - 10 mg PO Q4H PRN 11/07/18 05/23/19 History fentanyl 1 patch TRANSDERMAL Q72H 11/26/18 05/23/19 History pantoprazole 40 mg PO DAILY PRN 11/26/18 05/23/19 History prochlorperazine maleate 10 mg PO Q6H PRN 11/26/18 05/23/19 History potassium chloride 20 meq PO QAM 02/05/19 05/23/19 History Cancer Treatment Medications 0 mg UNKNOWN 05/23/19 05/23/19 History budesonide 9 mg PO DAILY 05/23/19 05/23/19 History ondansetron HCl 8 mg PO DIRECTED PRN 05/23/19 05/23/19 History atorvastatin 80 mg tablet 80 mg PO HS #90 tab 05/25/19 Rx Past Med/Surg History Medical History CAD (coronary artery disease) MID RCA BMS X 1 (2012) COPD (chronic obstructive pulmonary disease) with emphysema (Acute) Carotid artery stenosis CARDIO MONITORING. 50-69% stenosis in [place], <50% in [place] per 2016 doppler. History of hepatitis B "NO PROBLEMS SINCE" PER RN INTERVIEW; NO FURTHER DETAILS Hyperlipidemia Hypertension Lung mass REASON FOR PROCEDURE; METASTATIC CARCINOMA ON T9 BIOPSY 10/13/18 Pre-diabetes NO MEDS SOB (shortness of breath) on exertion Surgical History H/O heart artery stent MID RCA BMS X 1 (2012) History of tonsillectomy (Acute) History of biopsy T9 BIOPSY= 10/13/18= GRADE 2 VIEW, MAC 4, ETT 7.5 AT [facility] History of bronchoscopy WITH BIOPSY History of colonoscopy History of lung surgery right thoracoscopy and bronchoscopy 12/03/18 History of procedure for peripheral vascular disease PORT PLACEMENT-IN PLACE Family History Mother , age 85 with heart issues Old age Heart disease Father , age 85 with COPD Old age COPD (chronic obstructive pulmonary disease) Brother No problems noted. Brother , still born No problems noted. Sister No problems noted. Sister No problems noted. Daughter No problems noted. Daughter No problems noted. Son Drug addiction Uncle , 46 Colon cancer Other No family history of adverse response to anesthesia Social History Preferred Language: Czech Communication Ability: Effective Visual Impairment: No Limitations Hearing Ability: Normal Dock Clerk Required: No Beliefs That Will Affect Care: None marital status: / Current Living Situation: Family Current Living Situation Comment: lives with son current occupational status: retired and disabled current occupation: Worked at [employer]-exposure to organic solvents, lead,etc Other Information That Helps Us Care for You: No other: Disabled since September of 2018 Feels Safe at Home: Yes Smoking Status: Current every day smoker Tobacco Type: cigarettes ; Cigarettes Per Day: 15-20 ; Do You Dip or Chew Tobacco: No ; Second Hand Exposure: Yes ; Tobacco Cessation Education Requested by Patient: No Hx Alcohol Use: Yes Alcohol type: beer Alcohol Intake Frequency Comment: 3-4 beers per day on average. Hx Substance Use: No Review of Systems Review of Systems: ROS: well nourished well developed. Obvious left arm weakness during exam No double vision blurry vision No problems with speech or swallowing No palpitations, chest pain or pressure No Wheezing persistent dyspnea on exertion but not at rest No abdominal pain nausea vomiting is with diarrhea recently remedied by budesonide oral tablets No burning urine urine frequency or changes in color No focal joint pain or muscle pain No skin rashes or oral lesions No unusual bruising or bleeding No focused back pain or numbness significant loss of strength of his left arm not including his deltoid muscle but distal but includes biceps triceps No changes in memory or confusion Physical Exam Physical Exam: The patient appeared well nourished and normally developed. Vital signs as documented. Head exam is unremarkable. normocephalic, atraumatic no facial droop was noted Neck is without jugular venous distension, thyromegaly, or lymphademopathy no carotid bruits were heard Lungs are clear to auscultation poor air movement with no wheezes Cardiac exam reveals Rhythm is regular. 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 Interval resection of the FDG avid right upper lobe pulmonary nodule. Minimal residual activity at the level of the suture line is likely postsurgical. 2. Small nonspecific focus of increased activity within the superior segment of the right lower lobe with SUV maximum of 2.2. There is no corresponding pulmonary mass in this may be inflammatory. Close follow-up is recommended. 3. Diffuse esophageal activity, finding which may be secondary to esophagitis 4. No evidence of pathologic glo activity. No evidence of pathologic hepatic or adrenal gland activity 5. Interval resolution of pathologic activity at the T9 level with interval decrease in the size of the associated soft tissue mass and improved mineralization of the previously described lytic lesion. PG Care Time/CCT Total # of Minutes Spent Total Time Spent with Patient: Total time spent is greater than 50% in coordination of care (as documented) at patient's floor/unit and/or counseling patient:
[2019-05-24 15:46] LABS: Hematocrit (blood only) 24.2 % (42-52); Hemoglobin 8.4 g/dL (14.0-18.0); Mean Corpuscular Hemoglobin 36.1 pg (25-34); Mean Corpuscular Hgb Conc 34.7 g/dL (32-36); Mean Corpuscular Volume 103.9 fL (80-100); RDW Coefficient of Variation 18.4 % (11.5-14.5); RDW Standard Deviation 69.2 fL (36.4-46.3); Red Blood Count 2.33 M/uL (4.7-6.1); White Blood Count 4.42 K/uL (4.8-10.8)
[2019-05-24 16:00] LABS: Prothrombin Time 9.8 Seconds (9.0-12.0)
[2019-05-24 16:12] LABS: Mean Platelet Volume 9.7 fL (7.4-10.4); Platelet Count 76 K/uL (130-400)
[2019-05-24 16:13] LABS: Platelet Estimate Decreased (Normal)
[2019-05-24] MEDS ORDERED: Nursing to Pharmacy Communication ONE (16:16)
[2019-05-24] MEDS: CHECK FENTANYL PATCH PLACEMENT SCH (16:27)
[2019-05-24] MEDS: OXYCODONE HCL IR 5 MG TAB (IMMEDIATE RELEASE) PO PRN ×2 (17:36→20:47)
--- NOTE | 2019-05-24 17:41 | Magnetic Resonance Report ---
Brain MRI WITHOUT CONTRAST HISTORY: left arm weakness h/o met ca to t spine TECHNIQUE: Multiplanar multisequence MRI of the brain was performed without the use of contrast. COMPARISON STUDY: PET CT 05/11/2019. Head CT 05/23/2019. FINDINGS: Moderate mucosal thickening within the right sphenoid sinus. The orbits are unremarkable. T he mastoid air cells are clear. The major vascular flow-voids at the skull base are well-maintained. The ventricles are normal in size. No large mass on this noncontrast study. No hematoma or midline sh ift. Scattered punctate foci restricted diffusion seen within the right posterior frontal lobe, right parietal lobe, and right occipital lobe consistent with acute infarcts. Additional scattered foci of T2 hyperintensity within the white matter of the supratentorial brain likely represent mild microvas cular ischemic change. IMPRESSION: Multiple scattered punctate foci of restricted diffusion within the right posterior frontal lobe, rig ht parietal lobe, and right occipital lobe consistent with acute infarcts. Electronically signed by: Chago Marin M.D. 05/24/2019 5:40 PM
--- NOTE | 2019-05-24 18:11 | Magnetic Resonance Report ---
CERVICAL SPINE MRI HISTORY: left arm numbness h/o ca met to t spine TECHNIQUE: Multiplanar multisequence MRI of the cervical spine was performed without the use of contr ast. COMPARISON STUDY: PET CT 05/11/2019. FINDINGS: Straightening of the cervical spine. Alignment is intact. Disc spaces are preserved. Verteb ral soft tissues and the C1-C2 interval are intact. Normal marrow signal intensity seen throughout th e visualized osseous structures. No evidence for metastatic disease within the cervical spine. The ce rvical spinal cord is normal in course, caliber, and signal intensity. No disc herniations. No parasp inal or epidural masses identified on this noncontrast study. C2-C3: No significant central canal or neural foraminal narrowing. C3-C4: No significant central canal or neural foraminal narrowing. C4-C5: No significant central canal or neural foraminal narrowing. C5-C6: No significant central canal or neural foraminal narrowing. C6-C7: No significant central canal or neural foraminal narrowing. C7-T1: No significant central canal or neural foraminal narrowing. IMPRESSION: 1. No evidence for metastatic disease in the cervical spine. 2. No significant central canal or neural foraminal narrowing. 3. No fracture or subluxation. Electronically signed by: Chago Marin M.D. 05/24/2019 6:09 PM
[2019-05-24] MEDS: FLUTICASONE/SALMETEROL 250/50 (ADVAIR) 14 PUFF/1 INHALER INH SCH (20:49)
[2019-05-24] MEDS: guaiFENesin 600 MG TABCR PO SCH (20:50)
[2019-05-24] MEDS: METOPROLOL SUCC 25MG EXT REL TAB PO SCH (20:56)
[2019-05-24] MEDS: HEPARIN SOD 5,000 UNIT/0.5 ML VIAL SQ SCH (20:58)
[2019-05-25] MEDS: CHECK FENTANYL PATCH PLACEMENT SCH ×3 (00:41→17:09)
[2019-05-25 05:43] LABS: Hematocrit (blood only) 22.3 % (42-52); Hemoglobin 7.7 g/dL (14.0-18.0); Mean Corpuscular Hemoglobin 35.8 pg (25-34); Mean Corpuscular Hgb Conc 34.5 g/dL (32-36); Mean Corpuscular Volume 103.7 fL (80-100); RDW Coefficient of Variation 18.2 % (11.5-14.5); RDW Standard Deviation 68.3 fL (36.4-46.3); Red Blood Count 2.15 M/uL (4.7-6.1); White Blood Count 3.67 K/uL (4.8-10.8)
[2019-05-25 05:52] LABS: Mean Platelet Volume 10.8 fL (7.4-10.4); Platelet Count 63 K/uL (130-400)
[2019-05-25 06:23] LABS: Basophils # (auto) 0.01 K/uL (0-0.2); Basophils % (auto) 0.3 %; Eosinophils # (auto) 0.02 K/uL (0-0.5); Eosinophils % (auto) 0.5 %; Lymphocytes # (auto) 2.12 K/uL (1.2-3.4); Lymphocytes % (auto) 57.8 %; Monocytes # (auto) 0.34 K/uL (0.11-0.59); Monocytes % (auto) 9.3 %; Neutrophils # (auto) 1.18 K/uL (1.4-6.5); Neutrophils % (auto) 32.1 %; RBC Morphology Unremarkable
[2019-05-25 06:24] LABS: BUN Creatinine Ratio 10.5 (10-20); Calcium 8.4 mg/dl (8.5-10.1); Creatinine Clr Calc Pharmacy 66.8 ml/min; Est GFR (Non-African American) 70.8; Potassium 4.1 mmol/L (3.5-5.1)
[2019-05-25 06:25] LABS: Estimated Average Glucose 143 mg/dl; Hemoglobin A1C 6.6 % (4.5-5.6)
[2019-05-25] MEDS ORDERED: SODIUM CHLORIDE 0.9% 250 ML IV PRN (07:11)
[2019-05-25] MEDS: FLUTICASONE/SALMETEROL 250/50 (ADVAIR) 14 PUFF/1 INHALER INH SCH ×2 (08:52→21:25)
[2019-05-25] MEDS: HEPARIN SOD 5,000 UNIT/0.5 ML VIAL SQ SCH ×2 (08:52→21:24)
[2019-05-25] MEDS: ATORVASTATIN 40 MG TAB PO SCH (08:53)
[2019-05-25] MEDS: BUDESONIDE EC 3 MG CAP PO SCH (08:53)
[2019-05-25] MEDS ORDERED: CLOPIDOGREL BISULFATE 75 MG TAB PO SCH (09:00)
[2019-05-25] MEDS ORDERED: ASPIRIN 81 MG ECTAB PO SCH (09:00)
[2019-05-25] MEDS ORDERED: ASPIRIN 325 MG ECTAB PO SCH (09:00)
--- NOTE | 2019-05-25 09:11 | Neurology Consultation ---
Date of Consultation May 25, 2019 Assessment & Plan (1) Acute CVA (cerebrovascular accident): (2) Left hand weakness: (3) Adenocarcinoma: (4) Anemia: Patient has multiple, punctate, acute strokes in a right middle cerebral artery distribution likely embolic in nature. The etiology is not certain, but it may be from the right carotid system. I cannot entirely exclude aortic arch or heart as a source. He does not have atrial fibrillation, other dysrhythmia, or history of valvular disease otherwise. His symptoms suggest that this happened almost 1 week ago. Patient has been on 81 milligram aspirin. He was on both aspirin and clopidogrel 75 milligrams but clopidogrel was stopped about a month ago because of some heme-positive stool. Etiology of this is not apparent but may be distal like hemorrhoidal. He also has pancytopenia. Although I can't exclude anemia being from blood loss, he has had chemotherapy recently which typically gives pancytopenia (although I do not know the specific name of the agent he received). Patient has adenocarcinoma of the lung post wedge resection. He had a T9 bony metastases with PET scan this spring showing improvement. Unfortunately, the PET scan only goes up to the skull base and does not see the brain well. Again, although we do not suspect brain Mets by the MRI we cannot exclude them because contrast was not given. He does have some neck discomfort but there is no evidence of bony metastases by MRI yesterday. He does have some mild degenerative changes which likely explains his neck discomfort. On exam he has drift, clumsiness, and numbness of his left hand. He has no other focal neurologic deficits, meningeal signs, or encephalopathy. I believe his deficits related to 1 of his middle cerebral artery acute strokes as noted on MRI. He has significant fatigue in general which is likely due to his pancytopenia. He is getting 2 units packed cells today. Risk factors for stroke include hypertension (not actually controlled on admission), dyslipidemia, and heavy cigarette smoking over time. He is a moderate to heavy alcohol user as well. Prolonged and significant alcohol use can affect the brain as well. Recommendations: 1. CT angiography of the head and neck including aortic arch to evaluate for st enoses or source of emboli. 2. Echocardiogram is pending. 3. Discontinue cigarette smoking. 4. Reduce alcohol intake to 1-2 beers in a given day and not every day. 5. Control blood pressure as you are doing. Aim for a mean arterial pressure of approximately 100. 6. Patient is a statin candidate, but given his multiple medical issues, I would not give him high doses. 7. Consider MRI of the brain with contrast to completely rule out Mets. This could be done as an outpatient and is not critical to do this hospitalization. 8. Physical and occupational therapy. Increase activity as able. 9. Treatment for his strokes will be determined by CT angiography and echocardiogram results as well as considerations of his anemia and heme-positive stools. Keep 81 milligram aspirin for now. If we decide that this is carotid disease that I might put him on Plavix alone and stop the aspirin. If it seems to be embolic from the arch or heart then he could be an anticoagulant candidate. Overall, I spent a total of 120 minutes with this case including review of records, review of MRI films with Radiology, direct evaluation the patient at bedside, and discussion of the case with the patient at bedside, nursing staff, Dr. Pinto, and Dr. Rubio, including differential diagnosis and treatment options. History of Present Illness Reason for Consultation: Patient is a 63-year-old, who I was asked to see at the request of Dr. Rubio, for neurologic consultation regarding stroke. Requesting Physician: Dr. Rubio Attending Physician: Phong Rubio MD History of Present Illness Patient has a history of coronary artery disease and [place] in 2011. Since that time he claims he has been on aspirin plus Plavix. He has had hypertension for most of this time as well. He was diagnosed with carotid artery stenosis at that time also. He has some dyslipidemia but no significant diabetes. Patient has been smoking cigarettes since age 17 currently smokes a little less than a pack a day. He will drink 3 or 4 beers a day as well. Patient had back pain and ended up getting a T9 biopsy by Dr. Arriaga in late September of 2018. It showed carcinoma likely metastasis. A port was placed in October of 2018. MRI of the brain in October of 2018 with without contrast showed no metastases. There was some mild old small vessel ischemic disease. Patient underwent evaluation and ended up having a right upper lobe wedge resection by Dr. Taylor December 03, 2018. This came back adenocarcinoma. He underwent immunotherapy with Pembrolizumab (Keytruda) for 3 courses under the direction of Dr. Stacy. Patient was having months of diarrhea from September through January. He ended up going to [facility] and seeing Dr. Boggs, oncologist. Velazquez Keyruda courses were continued and he had another conventional chemotherapy added a couple of cycles. He is uncertain the name of this agent. Nevertheless, PET scan this spring showed improvement (although it does not show above the skull base). Patient has been considerably fatigued over the last few weeks. He feels somewhat weak all over. For almost 1 week the patient has had some blurry vision in the right visual espinal disappearing covering 1 eye or the other. He started getting some left hand weakness, clumsiness, and numbness. His prenatal nurse was weak. He was having a nonspecific headache at the top of his head of a steady achy nature. His walking was a little unsteady but he did not fall. He denied speech issues, mentation problems, incontinence of urine, or right upper extremity problems. Patient's work history is interesting in that he worked for [employer], a [employer], and others. He has been exposed in his life time to significant amounts of organic solvents, lead, zirconium, titanium, lanthanum, and others. He arrived to the emergency room May 23,at 1222 with a temperature of 36.5, pulse of 80, respiratory rate 16, blood pressure 200/90, and O2 saturation 98 percent. Alcohol level was 79.4 and CBC showed white count of 4.4, hemoglobin of 8.9, hematocrit of 25.4, and platelet count of 102. Chem profile showed sodium 135, potassium 3.4, glucose 121, ALT 93, alk-phos 13 9. Chest x-ray was stable and showed postop changes as before. CT scan of the head was unremarkable. Patient left to go to his daughter's wedding prop making supervisor that afternoon/evening. He came back and was admitted July 24. White count was 3.6, hemoglobin 7.7, and hematocrit 22.3 [place] [address]. Chem profile was improved and hemoglobin A1c was 6.6. Triglycerides were 198, total cholesterol 167, LDL 84, HDL 43, and glucose 103. Repeat CT scan of the head was unremarkable. MRI of the brain without contrast showed multiple punctate acute strokes in a right middle cerebral artery distribution scattered throughout. I reviewed these films with Dr. Pinto, radiologist, and there is no convincing evidence that these involve the posterior cerebral or other arterial distribution. Although there were no obvious metastases they cannot 100 percent be ruled out because contrast was not given. Additionally, there was some mild old small vessel ischemic disease as before. MRI of the cervical spine without contrast showed no significant/obvious bony metastases or intramedullary lesions. There was some mild degenerative changes of disc in bone but no other significant findings. Again, these films with Radiology Echocardiogram is pending. Currently is improved with no pain or headache today. His right upper extremity is normal in his left upper extremity has some weakness, clumsiness, and numbness in the hand. His legs feel normal. He is not dizzy or lightheaded. Is getting 2 units packed red blood cells his blood pressure is 166/78 most recently. Allergies Allergy/AdvReac Type Severity Reaction Status Date / Time latex Allergy Intermediate RASH Verified 05/23/19 14:28 Penicillins Allergy Intermediate MOUTH LIPS Verified 05/23/19 14:28 AND TONGUE SWELLING bee venom protein (honey bee) AdvReac Intermediate SWELLING, Verified 05/23/19 14:28 THROAT SWELLING Home Medications Home Medications Medication Instructions Recorded Confirmed Type atorvastatin 80 mg PO HS 09/29/18 05/23/19 History clopidogrel 75 mg PO QAM 09/29/18 05/23/19 History guaifenesin [Mucinex] 600 mg PO HS 09/29/18 05/23/19 History metoprolol succinate 25 mg PO HS 09/29/18 05/23/19 History nitroglycerin [Nitrostat] 0.4 mg SUBLINGUAL DIRECTED PRN 09/29/18 05/23/19 History aspirin [Aspir-81] 81 mg PO QAM 10/10/18 05/23/19 History alprazolam 0.5 mg tablet 0.5 mg PO HS PRN 10/31/18 05/23/19 History oxycodone 5 - 10 mg PO Q4H PRN 11/07/18 05/23/19 History fentanyl 1 patch TRANSDERMAL Q72H 11/26/18 05/23/19 History pantoprazole 40 mg PO DAILY PRN 11/26/18 05/23/19 History prochlorperazine maleate 10 mg PO Q6H PRN 11/26/18 05/23/19 History potassium chloride 20 meq PO QAM 02/05/19 05/23/19 History Cancer Treatment Medications 0 mg UNKNOWN 05/23/19 05/23/19 History budesonide 9 mg PO DAILY 05/23/19 05/23/19 History ondansetron HCl 8 mg PO DIRECTED PRN 05/23/19 05/23/19 History Patient History Medical History CAD (coronary artery disease) MID RCA BMS X 1 (2012) COPD (chronic obstructive pulmonary disease) with emphysema (Acute) Carotid artery stenosis CARDIO MONITORING. 50-69% stenosis in [place], <50% in [place] per 2016 doppler. History of hepatitis B "NO PROBLEMS SINCE" PER RN INTERVIEW; NO FURTHER DETAILS Hyperlipidemia Hypertension Lung mass REASON FOR PROCEDURE; METASTATIC CARCINOMA ON T9 BIOPSY 10/13/18 Pre-diabetes NO MEDS SOB (shortness of breath) on exertion Surgical History H/O heart artery stent MID RCA BMS X 1 (2012) History of tonsillectomy (Acute) History of biopsy T9 BIOPSY= 10/13/18= GRADE 2 VIEW, MAC 4, ETT 7.5 AT [facility] History of bronchoscopy WITH BIOPSY History of colonoscopy History of lung surgery right thoracoscopy and bronchoscopy 12/03/18 History of procedure for peripheral vascular disease PORT PLACEMENT-IN PLACE Family History Mother , age 85 with heart issues Old age Heart disease Father , age 85 with COPD Old age COPD (chronic obstructive pulmonary disease) Brother No problems noted. Brother , still born No problems noted. Sister No problems noted. Sister No problems noted. Daughter No problems noted. Daughter No problems noted. Son Drug addiction Uncle , 46 Colon cancer Other No family history of adverse response to anesthesia Social History Preferred Language: Bel[place]ian Communication Ability: Effective Visual Impairment: No Limitations Hearing Ability: Normal Endbander Required: No Beliefs That Will Affect Care: None marital status: / Current Living Situation: Family Current Living Situation Comment: lives with son current occupational status: retired and disabled current occupation: Worked at [employer]-exposure to organic solvents, lead,etc Other Information That Helps Us Care for You: No other: Disabled since September of 2018 Feels Safe at Home: Yes Smoking Status: Current every day smoker Tobacco Type: cigarettes ; Cigarettes Per Day: 15-20 ; Do You Dip or Chew Tobacco: No ; Second Hand Exposure: Yes ; Tobacco Cessation Education Requested by Patient: No Hx Alcohol Use: Yes Alcohol type: beer Alcohol Intake Frequency Comment: 3-4 beers per day on average. Hx Substance Use: No Review of Systems Constitutional: + fatigue and + weakness; no fever Eyes: + worsening vision; no diplopia and no eye pain Ear, Nose, Mouth, Throat: no ear pain, no tinnitus, no hearing loss, no dizziness, no snoring, no hoarseness and no dysphagia Respiratory: + cough and + dyspnea on exertion Cardiovascular: no chest pain, no palpitations and no lightheadedness Gastrointestinal: no abdominal pain, no nausea and no vomiting Genitourinary: no dysuria and no urinary incontinence Musculoskeletal: no back pain, no neck pain, no radicular pain, no joint pain and no myalgia Integumentary: no rash and no lesions Neurologic: + localized weakness and + numbness; no gait abnormality, no generalized weakness, no tingling, no tremor(s), no abnormal movements, no headache(s), no abnormal speech, no confusion and no memory loss Psychiatric: no depression, no irritability, no anxiety, no difficulty concentrating, no confusion and no hallucinations Endocrine: + fatigue; no flushing Hematologic / Lymphatic: + easy bleeding and + easy bruising Allergy / Immunological: no urticaria and no problem reported Physical Exam Physical Exam: The patient is right-handed. The patient is awake, alert, and attentive. Speech is normal without any aphasia or dysarthria. Mentation and thought processes are intact, with full orientation and normal fund of knowledge. Attention and concentration are normal. Mood and affect are normal and appropriate. General appearance and grooming are normal. Short and long-term memory are intact. The discs are sharp with positive venous pulsations bilaterally. There are no exudates, hemorrhages, or blood vessel changes seen. Pupils are 4 mm bilaterally and reactive to light. Extraocular eye muscles are intact without nystagmus. Visual acuity and visual espinal seem normal grossly to confrontation. There are no deficits to sensation in the face in all 3 distributions of the fifth cranial nerve bilaterally. Corneal reflexes are positive bilaterally. Facial strength and symmetry was normal bilaterally. Hearing seems intact gross ly to voice and finger rub bilaterally. Palate moves well without asymmetry. There is normal sternocleidomastoid and trapezius (shoulder shrug) strength bilaterally. Tongue is midline with good strength bilaterally. Neck has a full range of motion without discomfort. There are no cervical bruits bilaterally. There are no cranial or ocular bruits. Heart is without murmur. There is a regular rhythm and rate. Cervical, thoracic, and lumbar spine are nontender to palpation. Gait is narrow based, with good arm swing, turns, and stance. Balance is normal eyes open. With outstretched arms there is mild drift on the left. There are no resting, postural, or action tremors. There is no ataxia with finger to nose testing. There is good facility in the right hand but clumsiness in the left hand. No other abnormal involuntary movements are noted. Motor strength is 5/5 diffusely in the right upper extremity including deltoids, biceps, triceps, brachioradialis, wrist flexors and extensors, prenatal nurse, and intrinsic hand muscles. Left upper extremity has 4+/5 strength in the deltoid, triceps, biceps, and forearm muscles with 4/5 strength in the prenatal nurse and intrinsic hand muscles. Motor strength is 5/5 diffusely in the legs bilaterally including hip flexors, quadriceps, hamstrings, gastrocnemius, tibialis anterior, tibialis posterior, and Peroneii muscles. Toe extensors are normal and there is good bulk in the extensor digitorum brevis muscles bilaterally. The limbs have good tone without rigidity or spasticity. There is no atrophy noted in the muscles. Muscle bulk is normal, there is no tenderness to palpation, no myotonia to percussion, and no fasciculations seen. Sensory examination is intact to touch and pin throughout all 4 limbs diffusely, except for decreased sensation from the wrist down including all fingers in the left hand. Reflexes are 2/4 in the biceps, triceps, brachioradialis, quadriceps, and Achilles tendons bilaterally. Toes are downgoing with plantar stimulation bilaterally. Peripheral pulses are present and of normal quality distally in all 4 limbs. There is no peripheral edema noted in the limbs. Results & Data Vital Signs (Past 12 Hours) Vital Signs Temp Pulse Pulse Resp BP Pulse Ox 08/05/19 08:22 36.8 C 80 16 166/78 H 97 05/25/19 07:02 36.8 C 60 18 123/69 93 05/25/19 03:31 36.9 C 65 20 137/76 95 05/25/19 00:47 55 L 05/24/19 23:07 36.6 C 69 20 126/73 97 05/24/19 20:55 60 20 103/69 94 Diagnostic Findings Brain MRI WITHOUT CONTRAST HISTORY: left arm weakness h/o met ca to t spine TECHNIQUE: Multiplanar multisequence MRI of the brain was performed without the use of contrast. COMPARISON STUDY: PET CT 05/11/2019. Head CT 05/23/2019. FINDINGS: Moderate mucosal thickening within the right sphenoid sinus. The orbits are unremarkable. The mastoid air cells are clear. The major vascular flow-voids at the skull base are well-maintained. The ventricles are normal in size. No large mass on this noncontrast study. No hematoma or midline shift. Scattered punctate foci restricted diffusion seen within the right posterior frontal lobe, right parietal lobe, and right occipital lobe consistent with acute infarcts. Additional scattered foci of T2 hyperintensity within the white matter of the supratentorial brain likely represent mild microvascular ischemic change. IMPRESSION: Multiple scattered punctate foci of restricted diffusion within the right posterior frontal lobe, right parietal lobe, and right occipital lobe consistent with acute infarcts. Electronically signed by: Chago Aldridge PG Care Time/CCT Total # of Minutes Spent Total Time Spent with Patient: 120 minutes (1) Anemia Anemia type: unspecified type Qualified Code(s): D64.9 - Anemia, unspecified
--- NOTE | 2019-05-25 15:08 | Hospitalist Progress Note ---
Date of Service May 25, 2019 Assessment & Plan (1) Stroke-like symptoms: Patient has a right embolic stroke confirmed by MRI that correlates with his strokelike symptoms with focal neurological deficit MRI of his neck and brain have ruled out recurrence of malignancy in his cervical spine causing the neuropathy. Patient will have CT angiogram of brain and neck have his antiplatelets switched to Plavix and is already been seen by physical therapy and Occupational Therapy. Echocardiogram rule out any embolic source from his heart (2) Hypertension: Patient remains on metoprolol for blood pressure control For cardiac risk prevention patient be converted to Plavix and 05/26 (3) Hyperlipidemia: Typically takes atorvastatin was also secondary risk prevention for coronary artery disease, now for secondary stroke prevention (4) History of hepatitis B: (5) Lung mass: Biopsy from November 2018 showed us to be a poorly differentiated adenocarcinoma variant with with solid and pseudo-squamous morphology as mentioned the patient also had thoracic spine wedge resection biopsy showing metastatic carcinoma this was done October 13, 2018 (6) COPD (chronic obstructive pulmonary disease) with emphysema: Patient feels that he has been undertreated for his COPD he is continued daily smoker I counseled him on cessation he takes guaifenesin at this time but no scheduled inhalers he was begun on moderate dose advair (7) Pre-diabetes: Patient has prediabetes listed in his chart we will watch his blood glucose and only needs to insulin if his glucose is over 180 (8) Lymphocytic colitis: Patient had a colonoscopy with biopsy showing lymphocytic colitis he takes budesonide for this. Because he is on chronic steroid use we will watch him for steroid deficiency or [place]'s crisis and then convert him to hydrocortisone if need be (9) DVT prophylaxis: Heparin abuse for DVT prevention Subjective Patient was informed of his embolic stroke he continues to have left arm weakness neurology is seen and recommending antiplatelet switch to Plavix following blood counts and PT OT. Further evaluation of embolic source was with echocardiogram which rule out intracardiac sources and pending CT angiogram of the head and neck. Patient was updated with these changes she is agreeable Review of Systems Review of Systems: ROS: well nourished well developed. No double vision blurry vision No problems with speech or swallowing No palpitations, chest pain or pressure No Wheezing or breathing issues No abdominal pain nausea vomiting diarrhea changes in appetite or weight No burning urine urine frequency or changes in color No focal joint pain or muscle pain No skin rashes or oral lesions No unusual bruising or bleeding Persistent left arm weakness biceps triceps distally with some paresthesias and dorsal hand pain No changes in memory or confusion Physical Exam Physical Exam: The patient appeared well nourished and normally developed. Vital signs as documented. Head exam is unremarkable. normocephalic, atraumatic Neck is without jugular venous distension, carotid bruits, thyromegaly, or lymphademopathy Lungs are clear to auscultation but has prolonged expiratory phase consistent with COPD Cardiac exam reveals Rhythm is regular. No murmurs are heard Abdominal exam reveals normal bowel sounds, no masses, no organomegaly Extremities are nonedematous and both pedal pulses are present Neurologic exam is A&Ox3, continues with left arm weakness biceps triceps and distally including intrinsic hand muscles associate with possible paresthesias in pain of his dorsal hand Psychologically seems slightly anxious but not depressed Skin is warm Dry with small bruises that he feels was from dual antiplatelet therapy Results & Data Vital Signs (Past 12 Hours) Vital Signs Temp Pulse Pulse Resp BP BP BP 05/25/19 13:30 36.8 C 82 16 159/74 H 05/25/19 12:35 36.9 C 75 16 144/79 H 05/25/19 12:01 36.9 C 75 16 153/73 H 05/25/19 11:57 36.6 C 66 16 129/84 05/25/19 11:45 36.6 C 61 66 16 129/84 129/84 05/25/19 11:42 37.1 C 61 16 132/71 05/25/19 11:31 36.8 C 72 16 148/78 H 05/25/19 11:30 75 05/25/19 11:15 61 05/25/19 11:00 59 L 05/25/19 10:45 58 L 05/25/19 10:30 79 05/25/19 10:15 63 05/25/19 10:10 36.7 C 64 16 137/73 05/25/19 10:00 64 05/25/19 09:45 59 L 05/25/19 09:30 67 05/25/19 09:16 36.8 C 70 16 132/77 05/25/19 09:15 69 05/25/19 09:00 72 05/25/19 08:45 73 05/25/19 08:40 36.8 C 80 16 104/71 05/25/19 08:30 75 05/25/19 08:22 36.8 C 80 16 166/78 H 05/25/19 08:15 73 05/25/19 08:00 77 05/25/19 07:45 57 L 05/25/19 07:30 66 05/25/19 07:15 57 L 05/25/19 07:02 36.8 C 60 18 123/69 05/25/19 07:00 65 05/25/19 06:45 53 L 05/25/19 06:30 57 L 05/25/19 06:15 77 05/25/19 06:00 60 05/25/19 05:45 55 L 05/25/19 05:30 56 L 05/25/19 05:15 55 L 05/25/19 05:00 57 L 05/25/19 04:45 58 L 05/25/19 04:30 61 05/25/19 04:15 57 L 05/25/19 04:00 59 L 05/25/19 03:45 57 L 05/25/19 03:31 36.9 C 65 20 137/76 05/25/19 03:30 72 05/25/19 03:15 58 L Pulse Ox 05/25/19 13:30 97 05/25/19 12:35 05/25/19 12:01 99 05/25/19 11:57 93 05/25/19 11:45 93 05/25/19 11:42 98 05/25/19 11:31 98 05/25/19 11:30 05/25/19 11:15 05/25/19 11:00 05/25/19 10:45 05/25/19 10:30 05/25/19 10:15 05/25/19 10:10 97 05/25/19 10:00 05/25/19 09:45 05/25/19 09:30 05/25/19 09:16 99 05/25/19 09:15 05/25/19 09:00 05/25/19 08:45 05/25/19 08:40 99 05/25/19 08:30 05/25/19 08:22 97 05/25/19 08:15 05/25/19 08:00 05/25/19 07:45 05/25/19 07:30 05/25/19 07:15 05/25/19 07:02 93 05/25/19 07:00 05/25/19 06:45 05/25/19 06:30 05/25/19 06:15 05/25/19 06:00 05/25/19 05:45 05/25/19 05:30 05/25/19 05:15 05/25/19 05:00 05/25/19 04:45 05/25/19 04:30 05/25/19 04:15 05/25/19 04:00 05/25/19 03:45 05/25/19 03:31 95 05/25/19 03:30 05/25/19 03:15 PG Care Time/CCT Total # of Minutes Spent Total Time Spent with Patient: Total time spent is greater than 50% in coordination of care (as documented) at patient's floor/unit and/or counseling patient:
[2019-05-25] MEDS ORDERED: OPTIRAY 320 125ml IV PRN ×2 (15:54→15:55)
--- NOTE | 2019-05-25 16:23 | CT Scan Report ---
HEAD & NECK CTA HISTORY: embolic right hemispheric strokes TECHNIQUE: Multiaxial CT images of the head were performed following the intravenous administration o f contrast to evaluate the major cerebral vessels. Multiaxial CT images of the neck were also perform ed following the intravenous administration of contrast to evaluate the major cervical vessels. Maxim um intensity projection images were also obtained. A dose lowering technique was utilized adhering to the principles of ALARA. COMPARISON: Head CT 05/23/2019. Brain MRI 05/24/2019. FINDINGS: The patient's scattered small right-sided embolic infarcts are better appreciated on the recent MRI. No mass, hematoma, or midline shift. Visualized intracranial internal carotid arteries, distal verteb ral arteries, and basilar artery are widely patent. There is no significant stenosis, occlusion, or a neurysm seen within the bilateral ACAs, MCAs, or assistant reading teacher. The major dural venous sinuses are patent. The re is a severely hypoplastic distal left vertebral artery. Mild calcified plaque within the bilateral carotid siphons. 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 Of note, the left vertebral artery origin ates from the aortic arch. There is a collateral extending off the distal left vertebral artery at th e C1 level which extends caudally. This collateral artery terminates into the left subclavian artery resulting in reconstitution of flow. Therefore, this is essentially a subclavian steal syndrome. Ther e is no significant stenosis, occlusion, or dissection identified within the bilateral common carotid , left internal carotid, or vertebral arteries. Focal high-grade stenosis in the proximal right inter nal carotid artery approximately 5 mm distal to the bifurcation. This is best seen on axial image 229 . There is approximately 90% focal stenosis. This could be due to the soft atherosclerotic plaque or possibly a focal dissection. Remaining mid to distal right internal carotid artery is widely patent. Emphysema. Partially calcified scarlike density within the right upper lobe. Left subclavian Port-A-C ath is partially visualized. IMPRESSION: 1. Focal high-grade stenosis in the proximal right internal carotid artery approximately 5 mm distal to the bifurcation with approximately 90% focal stenosis. This could be due to the soft atherosclerot ic plaque or possibly a focal dissection. 2. Severely hypoplastic distal left vertebral artery. 3. 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 Of note, the left vertebral artery orig inates from the aortic arch. There is a collateral extending off the distal left vertebral artery at the C1 level which extends caudally. This collateral artery terminates into the left subclavian arter y resulting in reconstitution of flow. Therefore, this is essentially a subclavian steal syndrome. 4. No significant stenosis, occlusion, or aneurysm within the [place]. Electronically signed by: Chago Marin M.D. 05/25/2019 4:22 PM
[2019-05-25] MEDS ORDERED: fentaNYL 25 MCG/HR TDSY TD SCH (20:00)
[2019-05-25] MEDS: guaiFENesin 600 MG TABCR PO SCH (21:26)
[2019-05-25] MEDS: METOPROLOL SUCC 25MG EXT REL TAB PO SCH (21:27)
[2019-05-26] MEDS: CHECK FENTANYL PATCH PLACEMENT SCH ×2 (01:06→08:43)
[2019-05-26 06:23] LABS: Hematocrit (blood only) 30.3 % (42-52); Hemoglobin 10.5 g/dL (14.0-18.0); Mean Corpuscular Hemoglobin 33.5 pg (25-34); Mean Corpuscular Hgb Conc 34.7 g/dL (32-36); Mean Corpuscular Volume 96.8 fL (80-100); Platelet Count 43 K/uL (130-400); RDW Coefficient of Variation 20.5 % (11.5-14.5); RDW Standard Deviation 71.3 fL (36.4-46.3); Red Blood Count 3.13 M/uL (4.7-6.1); White Blood Count 3.76 K/uL (4.8-10.8)
[2019-05-26 06:55] LABS: BUN Creatinine Ratio 11.7 (10-20); Calcium 7.9 mg/dl (8.5-10.1); Creatinine Clr Calc Pharmacy 72.3 ml/min; Est GFR (African American) 89.8; Est GFR (Non-African American) 77.5; Potassium 3.9 mmol/L (3.5-5.1)
[2019-05-26 07:07] LABS: Anisocytosis Present; Eosinophils # (auto) 0.05 K/uL (0-0.5); Eosinophils % (auto) 1.3 %; Lymphocytes # (auto) 1.91 K/uL (1.2-3.4); Lymphocytes % (auto) 50.8 %; Monocytes # (auto) 0.35 K/uL (0.11-0.59); Monocytes % (auto) 9.3 %; Neutrophils # (auto) 1.45 K/uL (1.4-6.5); Neutrophils % (auto) 38.6 %
--- NOTE | 2019-05-26 07:59 | Neurology Progress Note ---
Date of Service May 26, 2019 Assessment & Plan (1) Acute CVA (cerebrovascular accident): (2) Left hand weakness: (3) Adenocarcinoma: (4) Anemia: Patient has multiple, punctate, acute strokes in a right middle cerebral artery distribution likely embolic in nature. The etiology is not in entirely certain, but I suspect it is from the right carotid system. The patient does not have any source of emboli in the heart or aortic arch by testing. Echocardiogram was largely unremarkable. Clinically, he is improved today compared to yesterday. He has better strength in the left upper extremity and less clumsiness. The rest of his neurologic examination is without focal findings, meningeal signs, or encephalopathy. Patient has been on 81 milligram aspirin. He was on both aspirin and clopidogrel 75 milligrams but clopidogrel was stopped about a month ago because of some heme-positive stool. Etiology of this is not apparent but may be distal like hemorrhoidal. He also has pancytopenia. Although I can't exclude anemia being from blood loss, he has had chemotherapy recently which typically gives pancytopenia (although I do not know the specific name of the agent he received). Patient has adenocarcinoma of the lung post wedge resection. He had a T9 bony metastases with PET scan this spring showing improvement. Unfortunately, the PET scan only goes up to the skull base and does not see the brain well. Again, although we do not suspect brain Mets by the MRI we cannot exclude them because contrast was not given. He does have some neck discomfort but there is no evidence of bony metastases by MRI yesterday. He does have some mild degenerative changes which likely explains his neck discomfort. I believe his neurologic deficits related to his multiple small middle cerebral artery acute strokes, as noted on MRI. He had significant fatigue in general which is likely due to his pancytopenia. He received 2 units of packed red blood cells yesterday and his fatigue is improved today. Risk factors for stroke include hypertension (not actually controlled on adm ission), dyslipidemia, and heavy cigarette smoking over time. He is a moderate to heavy alcohol user as well. Prolonged and significant alcohol use can affect the brain as well. Recommendations: 1. Discontinue cigarette smoking. 2. Reduce alcohol intake to 1-2 beers in a given day and not every day. 3. Control blood pressure as you are doing. Aim for a mean arterial pressure of approximately 100. 4. Continue atorvastatin 40 milligrams daily. 5. Continue clopidogrel 75 milligrams daily and keep off aspirin. Clopidogrel should do a better job with the antiplatelet effect than the aspirin (in theory) . 6. Consider MRI of the brain with contrast to completely rule out Mets. This could be done as an outpatient and is not critical to do this hospitalization. 7. Physical and occupational therapy. Increase activity as able. Overall, I spent a total of 40 minutes with this case including review of records, review of CT angiography films, direct evaluation the patient at bed side, and discussion of the case with the patient at bedside, nursing staff, and Dr. Rubio, including differential diagnosis and treatment options. Subjective The patient feels stronger in his left upper extremity compared to yesterday. His hand is less clumsy. He has no pain or headache. He is not dizzy. He has no chest pain or abdominal pain. His left leg is strong. He has no speech or memory issues. He has less fatigue than on admission. Blood pressure is 122/78 this morning. Hemoglobin is improved to 10.5 and hematocrit 30.3. Chem profile is unremarkable although a calcium is slightly low at 7.9. Echocardiogram showed mild LVH and grade 1 diastolic dysfunction only. There was no source of emboli or valvular issues. CT angiography of the head was unremarkable with no significant stenoses or vessel anomalies. CT angiography of the neck revealed a proximal right internal carotid artery stenosis of approximately 90 percent. In addition there was a left subclavian occlusion with reconstitution higher up in the neck. The left vertebral artery stems directly from the aortic arch. There is a creation of a subclavian st eal. No other stenoses were noted. I reviewed these CT films. Physical Exam Physical Exam: He is awake and alert. Speech is without aphasia or dysarthria. Mood and affect are normal and appropriate. Thought processes are intact with good long and short-term memory. Extraocular eye muscles are intact without nystagmus. Pupils are equal and reactive. There is no facial droop. Tongue is midline. With outstretched arms there is no obvious drift on the left. There is still some mild clumsiness of the left hand compared to the right. Strength is 5/5 in the right upper extremity and 4+/5 in the left upper extremity. Leg strength is 5/5 bilaterally both proximally and distally. Stance sitting up in bed is normal. Results & Data Vital Signs (Past 12 Hours) Vital Signs Temp Pulse Pulse Resp BP BP Pulse Ox 05/26/19 07:00 36.5 C 59 L 18 122/78 98 05/26/19 03:21 36.7 C 66 20 126/83 97 05/26/19 01:03 61 05/25/19 23:38 37.2 C 71 18 142/69 H 95 05/25/19 21:26 66 102/72 Diagnostic Findings HEAD NECK CTA HISTORY: embolic right hemispheric strokes TECHNIQUE: Multiaxial CT images of the head were performed following the intravenous administration of contrast to evaluate the major cerebral vessels. Multiaxial CT images of the neck were also performed following the intravenous administration of contrast to evaluate the major cervical vessels. Maximum intensity projection images were also obtained. A dose lowering technique was utilized adhering to the principles of ALARA. COMPARISON: Head CT 05/23/2019. Brain MRI 05/24/2019. FINDINGS: The patient's scattered small right-sided embolic infarcts are better appreciated on the recent MRI. No mass, hematoma, or midline shift. Visualized intracranial internal carotid arteries, distal vertebral arteries, and basilar artery are widely patent. There is no significant stenosis, occlusion, or aneurysm seen within the bilateral ACAs, MCAs, or product safety officer. The major dural venous sinuses are patent. There is a severely hypoplastic distal left vertebral artery. Mild calcified plaque within the bilateral carotid siphons. 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 Of note, the left vertebral artery originates from the aortic arch. There is a collateral extending off the distal left vertebral artery at the C1 level which extends caudally. This collateral artery terminates into the left subclavian artery resulting in reconstitution of flow. Therefore, this is essentially a subclavian steal syndrome. There is no significant stenosis, occlusion, or dissection identified within the bilateral common carotid, left internal carotid, or vertebral arteries. Focal high-grade stenosis in the proximal right internal carotid artery approximately 5 mm distal to the bifurcation. This is best seen on axial image 229. There is approximately 90% focal stenosis. This could be due to the soft atherosclerotic plaque or possibly a focal dissection. Remaining mid to distal right internal carotid artery is widely patent. Emphysema. Partially calcified scarlike density within the right upper lobe. Left subclavian Port-A-Cath is partially visualized. IMPRESSION: 1. Focal high-grade stenosis in the proximal right internal carotid artery approximately 5 mm distal to the bifurcation with approximately 90% focal stenosis. This could be due to the soft atherosclerotic plaque or possibly a focal dissection. 2. Severely hypoplastic distal left vertebral artery. 3. 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 Of note, the left vertebral artery originates from the aortic arch. There is a collateral extending off the distal left vertebral artery at the C1 level which extends caudally. This collateral artery terminates into the left subclavian artery resulting in reconstitution of flow. Therefore, this is essentially a subclavian steal syndrome. 4. No significant stenosis, occlusion, or aneurysm within the [place]. Electronically signed by: Chago Marin M.D. 05/25/2019 4:22 PM PG Care Time/CCT Total # of Minutes Spent Total Time Spent with Patient: 40 min (1) Anemia Anemia type: unspecified type Qualified Code(s): D64.9 - Anemia, unspecified
[2019-05-26] MEDS: FLUTICASONE/SALMETEROL 250/50 (ADVAIR) 14 PUFF/1 INHALER INH SCH (08:41)
[2019-05-26] MEDS: ATORVASTATIN 40 MG TAB PO SCH (08:42)
[2019-05-26] MEDS: BUDESONIDE EC 3 MG CAP PO SCH (08:42)
[2019-05-26] MEDS: HEPARIN SOD 5,000 UNIT/0.5 ML VIAL SQ SCH (08:44)
[2019-05-26] MEDS ORDERED: fentaNYL 25 MCG/HR TDSY TD SCH (09:00)
[2019-05-26] MEDS ORDERED: ATORVASTATIN 40 MG TAB PO SCH (09:00)
[2019-05-26] MEDS ORDERED: CLOPIDOGREL BISULFATE 75 MG TAB PO SCH (09:00)
--- NOTE | 2019-05-26 10:50 | Magnetic Resonance Report ---
MR thoracic spine wo con CLINICAL HISTORY: 63 years-old Male presenting with left arm weakness h/o met ca to t spine. TECHNIQUE: Multisequence, multiplanar MR imaging of the thoracic spine was performed without the use of intravenous contrast. IV contrast: None. COMPARISON: 09/29/2018 and PET/CT from 05/11/2019. FINDINGS: Localizer images: Unremarkable. Normal thoracic kyphosis. Fatty replacement is evident throughout the vertebral bodies likely a conse quence of radiation therapy. Vertebral bodies maintain normal height, alignment, and bone marrow sign al intensity with the exception of the T9 vertebral body. There has been significant decrease in the abnormal signal intensity within T9, which is now limited to the left aspect of the vertebral body an d left pedicle and pars interarticularis. This represents a significant interval improvement from nubia or. No new lesion. Intervertebral disc heights preserved. No significant degenerative change. No spinal canal narrowing. Mild neural foraminal narrowing is suggested at T9-10. This is stable to slightly decreased from nubia or. Thoracic spinal cord normal in morphology and signal intensity. No epidural collection or soft tissue including at the T9 level. No paraspinal muscle edema or other signal abnormality. Atelectasis suspe cted in the dependent portions of the lungs. Normal T2 flow-voids within the vasculature. IMPRESSION: Significant interval decrease in size of the T9 lesion most compatible with treated disease, which is consistent with the findings on recent head CT from April. No new lesion. Electronically signed by: Rafita Pinto M.D. 05/26/2019 10:49 AM
[2019-05-26] MEDS: OXYCODONE HCL IR 5 MG TAB (IMMEDIATE RELEASE) PO PRN (10:58)
--- NOTE | 2019-05-26 12:17 | Consultation ---
Date of Consultation May 26, 2019 Assessment & Plan (1) Stenosis of right internal carotid artery with cerebral infarction: Pt with noted severe R ICA stenosis and R hemispheric CVA. Pt discussed with Dr Almaraz, recommends pt consider R CEA, can schedule for TUESDAY 05/29, inpt or outpt if pt is d/c prior to then. Will likely need card clearance prior. Procedure discussed at length with pt. Pt is agreeable and wishes to schedule surgery. Present on Admission?: Yes History of Present Illness Reason for Consultation: JORGE stenosis with CVA Attending Physician: Phong Rubio MD History of Present Illness 63 yo m with multiple medical problems, including CAD s/p ID and coronary stent placement in remote past, as well as lung adenocarcinoma currently undergoing chemo, HTN, hyperlipidemia, admitted with L sided weakness and found ot have R hemispheric CVA and associated severe R ICA stenosis, seen in consultation today. 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 He came to [facility] for eval and was found to have R hemispheric CVA and over 90% R ICA stenosis on CTA. Pt states sx have improved since admission, but still feels slightly weak in left hand. Did note some black spots in hir R eye vision last week as well, which resolved. States associated R sided BARROS, which as also resolved. Recently stopped taking plavix d/t cost, but was still taking 81mg ASA. Denies vision problems currently, BARROS, fever, recent illness,chest pain, SOB, abd pain, N/V, rest pain, claudication, other complaints. Sees José Miguel Nice PA-C, at [facility] [place], states was seen there about 1 month ago. No hx of prior TIA or CVA. Allergies Allergy/AdvReac Type Severity Reaction Status Date / Time latex Allergy Intermediate RASH Verified 05/23/19 14:28 Penicillins Allergy Intermediate MOUTH LIPS Verified 05/23/19 14:28 AND TONGUE SWELLING bee venom protein (honey bee) AdvReac Intermediate SWELLING, Verified 05/23/19 14:28 THROAT SWELLING Home Medications Home Medications Medication Instructions Recorded Confirmed Type clopidogrel 75 mg PO QAM 09/29/18 05/23/19 History guaifenesin [Mucinex] 600 mg PO HS 09/29/18 05/23/19 History metoprolol succinate 25 mg PO HS 09/29/18 05/23/19 History nitroglycerin [Nitrostat] 0.4 mg SUBLINGUAL DIRECTED PRN 09/29/18 05/23/19 History aspirin [Aspir-81] 81 mg PO QAM 10/10/18 05/23/19 History alprazolam 0.5 mg tablet 0.5 mg PO HS PRN 10/31/18 05/23/19 History oxycodone 5 - 10 mg PO Q4H PRN 11/07/18 05/23/19 History fentanyl 1 patch TRANSDERMAL Q72H 11/26/18 05/23/19 History pantoprazole 40 mg PO DAILY PRN 11/26/18 05/23/19 History prochlorperazine maleate 10 mg PO Q6H PRN 11/26/18 05/23/19 History potassium chloride 20 meq PO QAM 02/05/19 05/23/19 History Cancer Treatment Medications 0 mg UNKNOWN 05/23/19 05/23/19 History budesonide 9 mg PO DAILY 05/23/19 05/23/19 History ondansetron HCl 8 mg PO DIRECTED PRN 05/23/19 05/23/19 History atorvastatin 80 mg tablet 80 mg PO HS #90 tab 05/25/19 Rx Patient History Medical History CAD (coronary artery disease) MID RCA BMS X 1 (2012) COPD (chronic obstructive pulmonary disease) with emphysema (Acute) Carotid artery stenosis CARDIO MONITORING. 50-69% stenosis in JORGE, <50% in LICA per 2016 doppler. History of hepatitis B "NO PROBLEMS SINCE" PER RN INTERVIEW; NO FURTHER DETAILS Hyperlipidemia Hypertension Lung mass REASON FOR PROCEDURE; METASTATIC CARCINOMA ON T9 BIOPSY 10/13/18 Pre-diabetes NO MEDS SOB (shortness of breath) on exertion Surgical History H/O heart artery stent MID RCA BMS X 1 (2012) History of tonsillectomy (Acute) History of biopsy T9 BIOPSY= 10/13/18= GRADE 2 VIEW, MAC 4, ETT 7.5 AT [facility] History of bronchoscopy WITH BIOPSY History of colonoscopy History of lung surgery right thoracoscopy and bronchoscopy 12/03/18 History of procedure for peripheral vascular disease PORT PLACEMENT-IN PLACE Family History Mother , age 85 with heart issues Old age Heart disease Father , age 85 with COPD Old age COPD (chronic obstructive pulmonary disease) Brother No problems noted. Brother , still born No problems noted. Sister No problems noted. Sister No problems noted. Daughter No problems noted. Daughter No problems noted. Son Drug addiction Uncle , 46 Colon cancer Other No family history of adverse response to anesthesia Social History Preferred Language: Sami Communication Ability: Effective Visual Impairment: No Limitations Hearing Ability: Normal Laboratory Animal Facility Supervisor Required: No Beliefs That Will Affect Care: None marital status: / Current Living Situation: Family Current Living Situation Comment: lives with son current occupational status: retired and disabled current occupation: Worked at [employer]-exposure to organic solvents, lead,etc Other Information That Helps Us Care for You: No other: Disabled since September of 2018 Feels Safe at Home: Yes Smoking Status: Current every day smoker Tobacco Type: cigarettes ; Cigarettes Per Day: 15-20 ; Do You Dip or Chew Tobacco: No ; Second Hand Exposure: Yes ; Tobacco Cessation Education Requested by Patient: No Hx Alcohol Use: Yes Alcohol type: beer Alcohol Intake Frequency Comment: 3-4 beers per day on average. Hx Substance Use: No Review of Systems Review of Systems: All systems reviewed & are unremarkable except as noted in HPI & below (L hand weakness, improving) Physical Exam Constitutional: WD/WN, vitals as above well developed, well nourished, + thin, healthy appearing, well groomed, cooperative and comfortable; not in distress and not combative Eyes: PERRL, conjunctivae normal, anicteric sclerae EOM intact bilaterally ENMT: external ear and nose normal, oropharynx normal Ears: no hearing impairment Nose: no nasal discharge Throat: no posterior oropharynx abnormality Neck: trachea midline, no thyromegaly no tracheal deviation, no neck crepitus and neck nontender Respiratory: able to speak in complete sentences; does not use accessory muscles and no cough Auscultation: lungs clear to auscultation bilaterally and + diminished lung sounds; no rhonchi and no wheezes Cardiovascular: Rate/Rhythm: regular rate and regular rhythm Heart Sounds: no gallop and no murmur Vessels: + carotid bruit, femoral pulses present, posterior tibial pulses present, dorsalis pedis pulses present, brachial pulses present and radial pulses present; no femoral bruit and + abnormal peripheral pulses Extremities: normal capillary refill and + vascular access device (L chest infusaport); no edema Chest (Breasts): Chest: normal inspection of chest Gastrointestinal (Abdomen): normal bowel sounds, soft, nontender, no hepatosplenomegaly Inspection/Auscultation: abdomen normal to inspection and normal bowel sounds; abdomen not distended Percussion/Palpation: abdomen soft; abdomen nontender, no guarding, abdomen not rigid and no abdominal mass Musculoskeletal: Head/Neck/Chest: normocephalic, head atraumatic and neck supple Extremities: extremities normal to inspection; full ROM of extremities, + abnormal strength (L hand bulk filler 3/5, R 5/5), no clubbing and no amputation noted Skin: no rashes, warm and dry normal turgor; no rashes, no lesions, no ulcers, no induration, no erythema, no eschar, no excoriations, no mottling and no pallor Neurologic: moves all extremities, + focal motor deficit (L hand) and awake; not confused Speech / Cognition: no expressive aphasia and no receptive apha ronnie Motor/Sensory: no tremor and no sensory deficit Cranial Nerves: EOM intact bilaterally, normal facial strength and tongue midline Gait: not gait assisted Psychiatric: Orientation: alert, oriented x 3 and cooperative Apperance: appropriately dressed, appropriately groomed and appeared stated age Affect: euthymic affect Thought Process: goal directed thought process, linear/logical thought process and clear/coherent thought process Cognition: recent memory grossly intact, remote memory grossly intact, attention grossly intact and language grossly intact Estimated Intelligence: average estimated intelligence Results & Data Vital Signs (Past 12 Hours) Vital Signs Temp Pulse Pulse Resp BP BP Pulse Ox 05/26/19 07:00 36.5 C 59 L 18 122/78 98 05/26/19 03:21 36.7 C 66 20 126/83 97 05/26/19 01:03 61
[2019-05-26] MEDS ORDERED: STROKE PATIENT DISCHARGE PRN (12:53)
--- NOTE | 2019-05-26 13:36 | Discharge Summary ---
Date of Service May 26, 2019 Admission HPI Per Admitting Provider 63-year-old male with a history of adenocarcinoma of the lung recently diagnosed by mets to his thoracic spine presents with a 4-day history of left arm weakness. Patient does note some blood in his stool recently cardiology is discontinued his Plavix. Patient feels weak and tired but is 2 weeks out from chemotherapy and has pancytopenia currently although not neutropenia. Patient also recently had a PET scan 3 weeks ago which he was told looked good The patient's daughter's wedding administrative receptionist was 05/23 and the patient now does not wish to be admitted but he returned today 05/24 for admission and further evaluati on of his focal neurological deficit.. His initial evaluation with CT scan of his head was without acute changes from 05/23 Patient denies any other issues he does have chronic respiratory failure from COPD has been profoundly weak since his chemotherapy. He previously has [facility] and had a falling out with him and currently receives his chemotherapeutic care at the [facility] system in [place]. Principal Diagnosis embolic stroke right carotid stenosis Discharge Exam The patient appeared thin with mild fatigue. Vital signs as documented. Head exam is unremarkable. normocephalic, atraumatic Neck is without jugular venous distension, thyromegaly, or lymphademopathy Lungs are clear to auscultation and percussion. Cardiac exam reveals Rhythm is regular. First and second heart sounds normal. Abdominal exam reveals normal bowel sounds, no masses, no organomegaly Extremities are nonedematous and both pedal pulses are present Neurologic exam is A&Ox3, patient has persistent left arm weakness slightly improved from admission relegated to distal to the deltoid muscle he also has some paresthesias distally Psychologically seems neither anxious or depressed Skin is warm Dry Discharge Data Allergies Allergy/AdvReac Type Severity Reaction Status Date / Time latex Allergy Intermediate RASH Verified 05/23/19 14:28 Penicillins Allergy Intermediate MOUTH LIPS Verified 05/23/19 14:28 AND TONGUE SWELLING bee venom protein (honey bee) AdvReac Intermediate SWELLING, Verified 05/23/19 14:28 THROAT SWELLING Consultations 05/24/19 15:02 Consult Case Management - Discharge Planning Routine Consult Neurology Routine 05/25/19 17:17 Consult Vascular Surgery Routine 05/26/19 12:00 Consult Cardiology Routine Procedures Performed MRI of the brain performed 05/24/2019 Multiple scattered punctate foci of restricted diffusion within the right posterior frontal lobe, right parietal lobe, and right occipital lobe consistent with acute infarcts CT angiogram of head and neck 05/25/2019 1. Focal high-grade stenosis in the proximal right internal carotid artery approximately 5 mm distal to the bifurcation with approximately 90% focal stenosis. This could be due to the soft atherosclerotic plaque or possibly a focal dissection. 2. Severely hypoplastic distal left vertebral artery. 3. 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 Of note, the left vertebral artery originates from the aortic arch. There is a collateral extending off the distal left vertebral artery at the C1 level which extends caudally. This collateral artery terminates into the left subclavian artery resulting in reconstitution of flow. Therefore, this is essentially a subclavian steal syndrome. 4. No significant stenosis, occlusion, or aneurysm within the [place]. Ordered Studies 05/24/19 15:00 MR brain wo con Urgent MR cervical spine wo con Urgent 05/25/19 15:00 CT angio head w con Routine CT angio neck with con Routine 05/26/19 04:18 MR thoracic spine wo con Urgent Hospital Course (1) Stroke-like symptoms: Patient has a right embolic stroke confirmed by MRI that correlates with h is strokelike symptoms with focal neurological deficit MRI of his neck and brain have ruled out recurrence of malignancy in his cervical spine causing the neuropathy. MRI of his thoracic spine shows regression of his previous T9 to static area . Echocardiogram shows preserved ejection fraction and no embolic source from his heart Patient's CT angiogram showed significant right carotid artery stenosis with possible soft plaque this is a high-grade focal stenosis patient was seen by Dr. Johnson will be brought in to the hospital most likely on 29 May for carotid endarterectomy. I phone both anesthesia and cardiology. Anesthesia is comfortable with cardiology sees the patient as an outpatient over the next 2 days then writes a note clearing him for surgery. The patient did most recently have surgery within the last year for the biopsy diagnosis of his malignancy. (2) Hypertension: Patient remains on metoprolol for blood pressure control For cardiac risk prevention and cerebrovascular risk prevention, the patient be converted to Plavix and 05/26 stopping aspirin (3) Hyperlipidemia: Typically takes atorvastatin was also secondary risk prevention for coronary artery disease, now for secondary stroke prevention (4) History of hepatitis B: (5) Lung mass: Biopsy from November 2018 showed us to be a poorly differentiated adenocarcinoma variant with with solid and pseudo-squamous morphology as mentioned the patient also had thoracic spine wedge resection biopsy showing metastatic carcinoma this was done October 13, 2018 PET scan performed May 11 shows regression of disease after treatment he follows up with [facility] [place] oncology (6) COPD (chronic obstructive pulmonary disease) with emphysema: Patient feels that he has been undertreated for his COPD he is continued daily smoker I counseled him on cessation he takes guaifenesin at this time but no scheduled inhalers he was begun on moderate dose advair with good improvement this will be continued at the time of discharge (7) Pre-diabetes: Patient has prediabetes listed in his chart counseled on a carbohydrate family diet (8) Lymphocytic colitis: Patient had a colonoscopy with biopsy showing lymphocytic colitis he takes budesonide for this. Because he is on chronic steroid use we will watch him for steroid deficiency or Cohagen's crisis and then convert him to hydrocortisone if need be Total Time Total Time Spent Total Time Spent (In Minutes): greater than 30 minutes were required to prepare discharge Discharge Plan Discharge Items Patient Disposition: Home - Self-Care Reason For Visit: STROKE SYMPTOMS Discharge Diagnosis: small stroke, right carotid artery narrowing Discharge Goals: Decrease discomfort, Diagnostic testing and Improve disease control Activity: Resume your previous activity Non-emergency contact: Primary Care Provider Call non-emergency contact if: you have any medication questions Follow-up/Referrals: Esvin Peña MD [Primary Care Provider] - Diet: Regular Addtl Provider Instructions: please try to stop smoking, use patches or gum if able please be sure Cardiology sees for pre operative check up 05/27 or 05/28. stop your aspirin but continue plavix please stop smoking and use your inhaler to help your copd Prescriptions: New fluticasone propion-salmeterol [Advair Diskus] 250-50 mcg/dose Blister With Device 1 puff inhalation BID Qty: 1 RF: 3 Continued atorvastatin 80 mg tablet 80 mg PO HS Qty: 90 RF: 3 metoprolol succinate 25 mg tablet extended release 24 hr 25 mg PO HS RF: 0 guaifenesin [Mucinex] 600 mg Tablet Extended Release 12hr 600 mg PO HS RF: 0 nitroglycerin [Nitrostat] 0.4 mg Tablet, Sublingual 0.4 mg Sublingual DIRECTED PRN (Reason: Chest Pain) RF: 0 alprazolam 0.5 mg tablet 0.5 mg PO HS PRN (Reason: anxiety) RF: 0 clopidogrel 75 mg tablet 75 mg PO QAM Qty: 30 RF: 4 oxycodone 5 mg Capsule 5 - 10 mg PO Q4H PRN (Reason: Pain) RF: 0 fentanyl 25 mcg/hr Patch 72 Hour 1 patch TRANSDERMAL Q72H RF: 0 prochlorperazine maleate 10 mg Tablet 10 mg PO Q6H PRN (Reason: Nausea) RF: 0 pantoprazole 40 mg Tablet,Delayed Release (Dr/Ec) 40 mg PO DAILY PRN (Reason: Acid Reflux) RF: 0 potassium chloride 10 mEq Capsule, Extended Release 20 meq PO QAM RF: 0 ondansetron HCl 8 mg tablet 8 mg PO DIRECTED PRN (Reason: Nausea) RF: 0 budesonide 3 mg capsule,delayed,extend.release 9 mg PO DAILY RF: 0 Cancer Treatment Medications 0 MG UNKNOWN RF: 0 Discontinued aspirin [Aspir-81] 81 mg Tablet,Delayed Release (Dr/Ec) 81 mg PO QAM RF: 0 Stand-Alone Forms: Medications to Prevent Stroke, [facility]/Other Patient Handouts: Diabetes Type 2 Coping, Diabetes Meal Planning Discharge Orders: Discharge Order (Routine); Ordered 05/26/19 Ordered By: Phong Rubio Admission Data Admit Date/Time: 05/24/19 14:50 Attending Provider: Phong Rubio Admit Provider: Phong Rubio Primary Care Provider: Esvin Peña Other Providers: Sai Richards III ; Gutierrez Johnson Kip M. ; Niles Rose ; Lalito Villatoro ; Torres Santacruz ; Jasiel Huertas ; Miguel Reyes Jr ; Petros Whitehead ; Litzy Knight ; Hanh Redding ; Artemio Sanon ; Artemio Apodaca ; Ramón Martin ; Shefali Hogue ; Jocelynn Barton Service: Telemetry Medical Other Interventions: Discharge Summary Assessment (RN) Last Done: 05/26/19 13:10
--- NOTE | 2019-05-26 15:54 | Pharmacy Report ---
Pharmacist Stroke Counseling - Date of Service May 26, 2019 - Scope: Pharmacy has been consulted to provide medication discharge counseling for this patient admitted with ischemic stroke as per the Pharmacist Discharge Counseling for Stroke Patients Protocol. - Medications on Discharge: Home Medications Medication Instructions Recorded Confirmed guaifenesin [Mucinex] 600 mg PO HS 09/29/18 05/23/19 metoprolol succinate 25 mg PO HS 09/29/18 05/23/19 nitroglycerin [Nitrostat] 0.4 mg SUBLINGUAL DIRECTED PRN 09/29/18 05/23/19 alprazolam 0.5 mg tablet 0.5 mg PO HS PRN 10/31/18 05/23/19 oxycodone 5 - 10 mg PO Q4H PRN 11/07/18 05/23/19 fentanyl 1 patch TRANSDERMAL Q72H 11/26/18 05/23/19 pantoprazole 40 mg PO DAILY PRN 11/26/18 05/23/19 prochlorperazine maleate 10 mg PO Q6H PRN 11/26/18 05/23/19 potassium chloride 20 meq PO QAM 02/05/19 05/23/19 Cancer Treatment Medications 0 mg UNKNOWN 05/23/19 05/23/19 budesonide 9 mg PO DAILY 05/23/19 05/23/19 ondansetron HCl 8 mg PO DIRECTED PRN 05/23/19 05/23/19 New Rx's Medication Instructions Recorded atorvastatin 80 mg tablet 80 mg PO HS #90 tab 05/25/19 clopidogrel 75 mg PO QAM #30 tab 05/26/19 fluticasone propion-salmeterol 1 puff INHALATION BID #1 ea 05/26/19 [Advair Diskus] - Outcome: Antiplatelets Aspirin and clopidogrel both listed on med rec, but patient has been off clopidogrel for ~1 month (various reports as to why include cost, arm bruising (per patient) and possible GI bleed although patient notes this could have been hemorrhoidal bleeding as this occurred after a bowel movement in which it had been 2 weeks since his previous). Discharge instructions noted to stop aspirin and resume/continue clopidogrel. However, during my consultation with the ry han, he noted that Dr. Johnson had seen him in the last few minutes, and specifically recommended that the patient be on aspirin, which was discontinued per discharge instructions / Dr. Rubio (confirmed on patient's printed paperwork). Spoke w Dr. Rubio who noted he would defer antiplatelet therapy decisions to Dr. Johnson (noting the patient was on aspirin monotherapy when he had this stroke and therefore monotherapy with aspirin would not likely be best). Spoke w Dr. Johnson who noted he was OK with dual aspirin / Plavix - discussed risk/benefit with regards to report of possible bleeding. I again spoke with Dr. Rubio who noted that verbal communication to the patient would suffice and that although the patient's paperwork noted to stop the aspirin, that the patient could be verbally informed without need to adjust paperwork / discharge documentation. I again spoke with the patient who confirmed he would not like to wait to have his paperwork adjusted and he gave verbal confirmation that he is to *continue* aspirin (although his paperwork notes to *discontinue*). The patient was very much in a hurry to leave and requested that I finish our discussion on the walk to the elevator (acknowledging that I could not keep his information private were we to do so). I therefore provided a brief overview of the "Medications to Prevent Stroke" handout, and encouraged the patient to read it when he got home. The patient acknowledged understanding. Statin therapy Patient was on atorvastatin 80 mg on arrival. This was originally held as an inpatient and then ordered at 40 mg. Per neurology note on 05/25, suggested avoiding high dose statin and in note on 05/26, specifically recommended 40 mg. However, discharge instructions were to resume [address] Rubio - acknowledged patient does not likely require 80 mg from a *neurology* standpoint, but confirmed he would like to discharge on 80 mg from a *cardiology * standpoint. Per patient, he is seeing his outpatient museum archivist (José Miguel Nice) on (05/28) and is scheduled for surgery with Dr. Johnson Saturday (05/29). Please note, they are aware that the pharmacist will call them within 72 hours post-discharge to confirm that the appropriate medications are being taken and answer any further medication related questions the patient might have at that time. Contact information Individual to be contacted: [place] Phone number: Best time to call: Saturday or (patient will be back at [facility] on Saturday) Thank you for allowing pharmacy to be involved in the care of this patient. Please call [phone] or [phone] with any additional questions
--- NOTE | 2019-05-27 14:58 | Pharmacy Report ---
Pharmacist Post D/C Phone Note - Phone Note: Date of phone call: May 27, 2019. Individual with whom pharmacist spoke to: ANTONINO MAE JR The following questions were reviewed during the phone call with responses listed below each: Can you tell me the medications that you are currently taking as well as when and how you take each medication? -See Table Below When have you missed any doses of your medications? - no taking both aspirin and Plavix What side effects are you having from your medications, specifically, the new medications you were started on? - none What questions do you have about your medications? - none What problems are you having obtaining your medications? - none at the pharmacy right now When is your next appointment with your primary care doctor? - (cardiology) and Saturday (surgery with Alex) Additional comments: - patient on both aspirin and Plavix. As per the Pharmacist Discharge Counseling for Stroke Patients Protocol, this phone call has been completed within 72 hours of discharge. Thank you for allowing us to be involved in the care of this patient. - Home Medications: Home Medications Medication Instructions Recorded Confirmed guaifenesin [Mucinex] 600 mg PO HS 09/29/18 05/27/19 metoprolol succinate 25 mg PO HS 09/29/18 05/27/19 nitroglycerin [Nitrostat] 0.4 mg SUBLINGUAL DIRECTED PRN 09/29/18 05/27/19 alprazolam 0.5 mg tablet 0.5 mg PO HS PRN 10/31/18 05/27/19 oxycodone 5 - 10 mg PO Q4H PRN 11/07/18 05/27/19 pantoprazole 40 mg PO DAILY PRN 11/26/18 05/27/19 prochlorperazine maleate 10 mg PO Q6H PRN 11/26/18 05/27/19 potassium chloride 20 meq PO QAM 02/05/19 05/27/19 Cancer Treatment Medications 0 mg UNKNOWN 05/23/19 05/27/19 budesonide 9 mg PO QAM 05/23/19 05/27/19 ondansetron HCl 8 mg PO DIRECTED PRN 05/23/19 05/27/19 aspirin [Aspirin Low Dose] 81 mg PO QAM 05/27/19 05/27/19 fentanyl 1 patch TRANSDERMAL UD 05/27/19 05/27/19 New Rx's Medication Instructions Recorded atorvastatin 80 mg tablet 80 mg PO HS #90 tab 05/25/19 clopidogrel 75 mg PO QAM #30 tab 05/26/19 fluticasone propion-salmeterol 1 puff INHALATION BID #1 ea 05/26/19 [Florencio Kemp]
== END 2019-05-26 15:41 | disposition home or self-care (01) | DRG 65 ==
LOC: 2N 14:50

== ENCOUNTER 2019-05-29 05:41 | Inpatient (IN) ==
--- NOTE | 2019-05-27 16:11 | Anesthesiology Consultation ---
Date of Service May 27, 2019 Assessment & Plan (1) Encounter for pre-operative examination: - Recent CVA (confirmed on brain MRI 05/24/19 but patient had been symptomatic for days prior). During admission, pancytopenia noted (including thrombocytopenia with most recent PLT 50 on 05/27/19). Per records, pancytopenia felt 2/2 recent chemo- received 2 Units PRBCs during 05/2019 [facility] admission resulting in improvement in fatigue. Known anemia/hx heme positive stool suspected hemorrhoidal but protonix dosing also increased during admission presumably in case UGI bleed (hgb in the 10-11 range since transfusion). Per surgeon order, plan to give 1 unit platelets AM DOS. Blood bank aware/will have 1 unit to give/+ on hold as well in case more needed). OR made aware of platelet transfusion/need for patient to come in early. Will recheck CBC AM DOS. - Cardio: 05/28/19: "Based on his functional status with only chronic stable dyspnea on exertion, stable EKG tracing, normal biventricular systolic function on recent echo, and the fact that he tolerated lung surgery under general anesthesia earlier this year without cardiac complications -- patient is a low to intermediate cardiac risk for his upcoming Right CEA. Patient was advised to take his usual dose of Toprol XL the night before surgery as he normally would, and he will continue on dual anti-platelet therapy leading up to surgery. There is no need for further cardiac workup at this time." Chart Review Chart Review: Acceptable Risk for Surgery and Patient NOT seen in Pre Admission Testing History Surgery Operation Date: 05/29/19 08:00 Proposed Procedures p Right Carotid Endarterectomy - Gutierrez Johnson MD Height/Weight Height: 5 ft 10 in Weight: 68.039 kg Allergies Allergy/AdvReac Type Severity Reaction Status Date / Time latex Allergy Intermediate RASH Verified 05/28/19 11:01 Penicillins Allergy Intermediate MOUTH LIPS Verified 05/28/19 11:01 AND TONGUE SWELLING bee venom protein (honey bee) AdvReac Intermediate SWELLING, Verified 05/28/19 11:01 THROAT SWELLING Medications Home Medications Medication Instructions Recorded Confirmed Last Taken guaifenesin [Mucinex] 600 mg PO HS 09/29/18 05/28/19 02/12/19 21:00 metoprolol succinate 25 mg PO HS 09/29/18 05/28/19 02/12/19 21:00 nitroglycerin [Nitrostat] 0.4 mg SUBLINGUAL DIRECTED PRN 09/29/18 05/28/19 Unknown alprazolam 0.5 mg tablet 0.5 mg PO HS PRN 10/31/18 05/28/19 10/24/18 oxycodone 5 - 10 mg PO Q4H PRN 11/07/18 05/28/19 02/12/19 08:00 pantoprazole 40 mg PO DAILY PRN 11/26/18 05/28/19 02/12/19 08:00 prochlorperazine maleate 10 mg PO Q6H PRN 11/26/18 05/28/19 02/13/19 07:00 potassium chloride 20 meq PO QAM 02/05/19 05/28/19 02/12/19 08:00 Cancer Treatment Medications 0 mg UNKNOWN 05/23/19 05/28/19 Unknown budesonide 9 mg PO QAM 05/23/19 05/28/19 Unknown ondansetron HCl 8 mg PO DIRECTED PRN 05/23/19 05/28/19 Unknown atorvastatin 80 mg tablet 80 mg PO HS #90 tab 05/25/19 05/28/19 Unknown clopidogrel 75 mg PO QAM #30 tab 05/26/19 05/28/19 Unknown fluticasone propion-salmeterol 1 puff INHALATION BID #1 ea 05/26/19 05/28/19 Unknown [Advair Diskus] aspirin [Aspirin Low Dose] 81 mg PO QAM 05/27/19 05/28/19 Unknown fentanyl 1 patch TRANSDERMAL Q3D@14 05/27/19 05/28/19 Unknown cyanocobalamin (vitamin B-12) See Rx Instructions .ROUTE .COMPLEX 05/28/19 05/28/19 Unknown ibuprofen 200 mg capsule See Rx Instructions .ROUTE 05/28/19 05/28/19 Unknown .COMPLEX PRN Past Medical History Medical History Anemia Adenocarcinoma with thoracic spine mets (last chemo 05/13/19) CAD (coronary artery disease) BMS x1 to mid RCA (2012) CVA (cerebral vascular accident) Multiple scattered punctate foci of restricted diffusion within the right posterior frontal lobe, right parietal lobe, and right occipital lobe consistent with acute infarcts COPD (chronic obstructive pulmonary disease) with emphysema Carotid artery stenosis Focal high-grade stenosis in the proximal right internal carotid artery approximately 5 mm distal to the bifurcation with approximately 90% focal stenosis History of hepatitis B remote hx; "no problems since" per RN phone interview- no further details Hyperlipidemia Hypertension Maintenance chemotherapy Microscopic colitis dx 01/2019- on steriod (budesonide)* Port-A-Cath in place Pre-diabetes SOB (shortness of breath) on exertion Past Surgical History Surgical History H/O heart artery stent MID RCA BMS X 1 (2012) History of biopsy T9 BIOPSY= 10/13/18= GRADE 2 VIEW, MAC 4, ETT 7.5 AT [facility] History of bronchoscopy WITH BIOPSY History of colonoscopy History of lung surgery right thoracoscopy and bronchoscopy 12/03/18 History of tonsillectomy Social History Smoking Status: Current every day smoker tobacco type: cigarettes Smoking cigarettes per day: 15-20 Do You Dip or Chew Tobacco: No Hx Alcohol Use: Yes Alcohol type: beer alcohol intake frequency: 3 or more drinks per day Hx Substance Use: No substance use type: does not use Testing Laboratory Results 05/28/19 WBC 3.10 H/H 10.2/30 PLATELETS 50 SODIUM 136 POTASSIUM 3.6 CHLORIDE 105 CO2 17 BUN 6 CREATININE 1.0 GLUCOSE 120 PT 10.3 PTT 31.4 INR 1.0 05/23/19 TYPE AND SCREEN B+Ab- Electrocardiogram Date: 05/28/19 NSR 70bpm (unconfirmed) Chest X-Ray Date: 05/27/19 Left subclavian [id number] is in place. There are postoperative findings within the right lung. The appearance of the chest is unchanged. Emphysema is n oted. Cardiomediastinal silhouette is stable. Lower lung interstitial thickening is unchanged. There is no consolidation to suggest pneumonia. No acute cardiopulmonary findings. No change in appearance of the chest. Echocardiogram Date: 05/25/19 EF 55-60%. Mild cLVH. Grade I DD. No significant valvular disease. Stress Test Date: 11/01/16 Type: exercise "Normal" stress ECHO at >100% MPHR. 6.1 METS. No chest pain. No ECG changes. Mild MR/TR. Grade I DD. EF 55-60%. Cardiac Catheterization Date: 01/14/13 1. Mildly elevated left ventricular end diastolic pressure. 2. Severe mid RCA stenosis. 3. Successful intervention to mid RCA stenosis with deployment of a bare-metal stent. 4. Mild atherosclerotic disease of the left anterior descending coronary artery. 5. Moderate mid left circumflex stenosis. 6. Normal left ventricular systolic function and wall motion. 7. Flow from the posterior descending artery to what appeared to be a very small caliber posterolateral-type branch. However, there was no evidence of any obstructed posterolateral arising from the distal left circumflex. 8. LVEF 60%. Other Testing Brain MRI: 05/27/19: Unchanged distribution of the multiple punctate foci of restricted diffusion about the posterior right frontal lobe, right parietal and occipital lobes with decreased diffusion-weighted signal from comparison study dated 05/24/2019 compatible with evolving acute-subacute infarcts. There is no acute intracranial hemorrhage, midline shift or abnormal extra-axial collection. Suggestion of mild chronic microvascular ischemic disease. Neck CTA: 05/25/19: Focal high-grade stenosis in the proximal right internal carotid artery approximately 5 mm distal to the bifurcation with approximately 90% focal stenosis. This could be due to the soft atherosclerotic plaque or possibly a focal dissection. Severely hypoplastic distal left vertebral artery. 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 Of note, the left vertebral artery originates from the aortic arch. There is a collateral extending off the distal left vertebral artery at the C1 level which extends caudally. This collateral artery terminates into the left subclavian artery resulting in reconstitution of flow. Therefore, this is essentially a subclavian steal syndrome. No significant stenosis, occlusion, or aneurysm within the [place]. Brain MRI: 05/24/19: Multiple scattered punctate foci of restricted diffusion within the right posterior frontal lobe, right parietal lobe, and right occipital lobe consistent with acute infarcts. Head CT: 05/23/19: No acute intracranial abnormality.
[2019-05-29] MEDS ORDERED: SODIUM CHLORIDE 0.9% 1000ML IV SCH (06:00)
[2019-05-29] MEDS ORDERED: CLINDAMYCIN 600 MG/54 ML BAG IV SCH (06:00)
[2019-05-29] MEDS ORDERED: HYDROCORTISONE SOD SUCCINATE 100 MG/2 ML VIAL IV SCH (06:00)
--- NOTE | 2019-05-29 06:02 | History & Physical Report ---
Date of Service May 29, 2019 History of Present Illness Primary Care Provider: Esvin Peña MD May 26, 2019 Assessment & Plan (1) Stenosis of right internal carotid artery with cerebral infarction: Pt with noted severe R ICA stenosis and R hemispheric CVA. Pt discussed with Dr Almaraz, recommends pt consider R CEA, can schedule for TUESDAY 05/29, inpt or outpt if pt is d/c prior to then. Will likely need card clearance prior. Procedure discussed at length with pt. Pt is agreeable and wishes to schedule surgery. Present on Admission?: Yes History of Present Illness Reason for Consultation: JORGE stenosis with CVA Attending Physician: Phong Rubio MD History of Present Illness 63 yo m with multiple medical problems, including CAD s/p NE and coronary stent placement in remote past, as well as lung adenocarcinoma currently undergoing chemo, HTN, hyperlipidemia, admitted with L sided weakness and found ot have R hemispheric CVA and associated severe R ICA stenosis, seen in consultation today. Pt states he started noticing L hand weakness about 4-5 days [employer], which worsened until he was unable to pull his socks up. He came to [facility] for eval and was found to have R hemispheric CVA and over 90% R ICA stenosis on CTA. Pt states sx have improved since admission, but still feels slightly weak in left hand. Did note some black spots in hir R eye vision last week as well, which resolved. States associated R sided BARROS, which as also resolved. Recently stopped taking plavix d/t cost, but was still taking 81mg ASA. Denies vision problems currently, BARROS, fever, recent illness,chest pain, SOB, abd pain, N/V, re st pain, claudication, other complaints. [place] José Miguel Nice [place]-C[place] [facility] [place] states was seen there about 1 month ago. No hx of prior TIA or CVA. Allergies Allergy/AdvReac Type Severity Reaction Status Date / Time latex Allergy Intermediate RASH Verified 05/23/19 14:28 Penicillins Allergy Intermediate MOUTH LIPS Verified 05/23/19 14:28 AND TONGUE SWELLING bee venom protein (honey bee) AdvReac Intermediate SWELLING, Verified 05/23/19 14:28 THROAT SWELLING Home Medications Home Medications Medication Instructions Recorded Confirmed Type clopidogrel 75 mg PO QAM 09/29/18 05/23/19 History guaifenesin [Mucinex] 600 mg PO HS 09/29/18 05/23/19 History metoprolol succinate 25 mg PO HS 09/29/18 05/23/19 History nitroglycerin [Nitrostat] 0.4 mg SUBLINGUAL DIRECTED PRN 09/29/18 05/23/19 History aspirin [Aspir-81] 81 mg PO QAM 10/10/18 05/23/19 History alprazolam 0.5 mg tablet 0.5 mg PO HS PRN 10/31/18 05/23/19 History oxycodone 5 - 10 mg PO Q4H PRN 11/07/18 05/23/19 History fentanyl 1 patch TRANSDERMAL Q72H 11/26/18 05/23/19 History pantoprazole 40 mg PO DAILY PRN 11/26/18 05/23/19 History prochlorperazine maleate 10 mg PO Q6H PRN 11/26/18 05/23/19 History potassium chloride 20 meq PO QAM 02/05/19 05/23/19 History Cancer Treatment Medications 0 mg UNKNOWN 05/23/19 05/23/19 History budesonide 9 mg PO DAILY 05/23/19 05/23/19 History ondansetron HCl 8 mg PO DIRECTED PRN 05/23/19 05/23/19 History atorvastatin 80 mg tablet 80 mg PO HS #90 tab 05/25/19 Rx Patient History Medical History CAD (coronary artery disease) MID RCA BMS X 1 (2012) COPD (chronic obstructive pulmonary disease) with emphysema (Acute) Carotid artery stenosis CARDIO MONITORING. 50-69% stenosis in JORGE, <50% in LICA per 2016 doppler. History of hepatitis B "NO PROBLEMS SINCE" PER RN INTERVIEW; NO FURTHER DETAILS Hyperlipidemia Hypertension Lung mass REASON FOR PROCEDURE; METASTATIC CARCINOMA ON T9 BIOPSY 10/13/18 Pre-diabetes NO MEDS SOB (shortness of breath) on exertion Surgical History H/O heart artery stent MID RCA BMS X 1 (2012) History of tonsillectomy (Acute) History of biopsy T9 BIOPSY= 10/13/18= GRADE 2 VIEW, MAC 4, ETT 7.5 AT [facility] History of bronchoscopy WITH BIOPSY History of colonoscopy History of lung surgery right thoracoscopy and bronchoscopy 12/03/18 History of procedure for peripheral vascular disease PORT PLACEMENT-IN PLACE Family History Mother , age 85 with heart issues Old age Heart disease Father , age 85 with COPD Old age COPD (chronic obstructive pulmonary disease) Brother No problems noted. Brother , still born No problems noted. Sister No problems noted. Sister No problems noted. Daughter No problems noted. Daughter No problems noted. Son Drug addiction Uncle , 46 Colon cancer Other No family history of adverse response to anesthesia Social History Preferred Language: Spanish Communication Ability: Effective Visual Impairment: No Limitations Hearing Ability: Normal Brilliandeer Looper Required: No Beliefs That Will Affect Care: None marital status: / Current Living Situation: Family Current Living Situation Comment: lives with son current occupational status: retired and disabled current occupation: Worked at [employer]-exposure to organic solvents, lead,etc Other Information That Helps Us Care for You: No other: Disabled since September of 2018 Feels Safe at Home: Yes Smoking Status: Current every day smoker Tobacco Type: cigarettes ; Cigarettes Per Day: 15-20 ; Do You Dip or Chew Tobacco: No ; Second Hand Exposure: Yes ; Tobacco Cessation Education Requested by Patient: No Hx Alcohol Use: Yes Alcohol type: beer Alcohol Intake Frequency Comment: 3-4 beers per day on average. Hx Substance Use: No Review of Systems Review of Systems: All systems reviewed & are unremarkable except as noted in HPI & below (L hand weakness, improving) Physical Exam Constitutional: WD/WN, vitals as above well developed, well nourished, + thin, healthy appearing, well groomed, cooperative and comfortable; not in distress and not combative Eyes: PERRL, conjunctivae normal, anicteric sclerae EOM intact bilaterally ENMT: external ear and nose normal, oropharynx normal Ears: no hearing impairment Nose: no nasal discharge Throat: no posterior oropharynx abnormality Neck: trachea midline, no thyromegaly no tracheal deviation, no neck crepitus and neck nontender Respiratory: able to speak in complete sentences; does not use accessory muscles and no cough Auscultation: lungs clear to auscultation bilaterally and + diminished lung sounds; no rhonchi and no wheezes Cardiovascular: Rate/Rhythm: regular rate and regular rhythm Heart Sounds: no gallop and no murmur Vessels: + carotid bruit, femoral pulses present, posterior tibial pulses present, dorsalis pedis pulses present, brachial pulses present and radial pulses present; no femoral bruit and + abnormal peripheral pulses Extremities: normal capillary refill and + vascular access device (L chest infusaport); no edema Chest (Breasts): Chest: normal inspection of chest Gastrointestinal (Abdomen): normal bowel sounds, soft, nontender, no hepatosplenomegaly Inspection/Auscultation: abdomen normal to inspection and normal bowel sounds; abdomen not distended Percussion/Palpation: abdomen soft; abdomen nontender, no guarding, abdomen not rigid and no abdominal mass Musculoskeletal: Head/Neck/Chest: normocephalic, head atraumatic and neck supple Extremities: extremities normal to inspection; full ROM of extremities, + abnormal strength (L hand heel gummer 3/5, R 5/5), no clubbing and no amputation noted Skin: no rashes, warm and dry normal turgor; no rashes, no lesions, no ulcers, no induration, no erythema, no eschar, no excoriations, no mottling and no pallor Neurologic: moves all extremities, + focal motor deficit (L hand) and awake; not confused Speech / Cognition: no expressive aphasia and no receptive aphasia Motor/Sensory: no tremor and no sensory deficit Cranial Nerves: EOM intact bilaterally, normal facial strength and tongue midline Gait: not gait assisted Psychiatric: Orientation: alert, oriented x 3 and cooperative Apperance: appropriately dressed, appropriately groomed and appeared stated age Affect: euthymic affect Thought Process: goal directed thought process, linear/logical thought process and clear/coherent thought process Cognition: recent memory grossly intact, remote memory grossly intact, attention grossly intact and language grossly intact Estimated Intelligence: average estimated intelligence Results & Data Vital Signs (Past 12 Hours) Vital Signs Temp Pulse Pulse Resp BP BP Pulse Ox 05/26/19 07:00 36.5 C 59 L 18 122/78 98 05/26/19 03:21 36.7 C 66 20 126/83 97 05/26/19 01:03 61 Signed By: <Electronically signed by Jennifer Landon PA-C> 05/26/19 1217 <Electronically signed by Gutierrez Almaraz MD> 05/28/19 1357 Created: 05/26/19 1202 The status of this report is Signed. Draft = Not yet reviewed or approved by Medical Physician. Signed = Reviewed and approved by Medical Physician. Allergies Allergy/AdvReac Type Severity Reaction Status Date / Time latex Allergy Intermediate RASH Verified 05/28/19 11:01 Penicillins Allergy Intermediate MOUTH LIPS Verified 05/28/19 11:01 AND TONGUE SWELLING bee venom protein (honey bee) AdvReac Intermediate SWELLING, Verified 05/28/19 11:01 THROAT SWELLING Home Medications Home Medications Medication Instructions Recorded Confirmed Type guaifenesin [Mucinex] 600 mg PO HS 09/29/18 05/28/19 History metoprolol succinate 25 mg PO HS 09/29/18 05/28/19 History nitroglycerin [Nitrostat] 0.4 mg SUBLINGUAL DIRECTED PRN 09/29/18 05/28/19 History alprazolam 0.5 mg tablet 0.5 mg PO HS PRN 10/31/18 05/28/19 History oxycodone 5 - 10 mg PO Q4H PRN 11/07/18 05/28/19 History pantoprazole 40 mg PO DAILY PRN 11/26/18 05/28/19 History prochlorperazine maleate 10 mg PO Q6H PRN 11/26/18 05/28/19 History potassium chloride 20 meq PO QAM 02/05/19 05/28/19 History Cancer Treatment Medications 0 mg UNKNOWN 05/23/19 05/28/19 History budesonide 9 mg PO QAM 05/23/19 05/28/19 History ondansetron HCl 8 mg PO DIRECTED PRN 05/23/19 05/28/19 History atorvastatin 80 mg tablet 80 mg PO HS #90 tab 05/25/19 05/28/19 Rx clopidogrel 75 mg PO QAM #30 tab 05/26/19 05/28/19 Rx fluticasone propion-salmeterol 1 puff INHALATION BID #1 ea 05/26/19 05/28/19 Rx [Advair Diskus] aspirin [Aspirin Low Dose] 81 mg PO QAM 05/27/19 05/28/19 History fentanyl 1 patch TRANSDERMAL Q3D@14 05/27/19 05/28/19 History cyanocobalamin (vitamin B-12) See Rx Instructions .ROUTE .COMPLEX 05/28/19 05/28/19 History ibuprofen 200 mg capsule See Rx Instructions .ROUTE 05/28/19 05/28/19 History .COMPLEX PRN Past Med/Surg History Medical History Anemia Adenocarcinoma with thoracic spine mets (last chemo 05/13/19) CAD (coronary artery disease) BMS x1 to mid RCA (2012) CVA (cerebral vascular accident) Multiple scattered punctate foci of restricted diffusion within the right posterior frontal lobe, right parietal lobe, and right occipital lobe consistent with acute infarcts COPD (chronic obstructive pulmonary disease) with emphysema Carotid artery stenosis Focal high-grade stenosis in the proximal right internal carotid artery approximately 5 mm distal to the bifurcation with approximately 90% focal stenosis History of hepatitis B remote hx; "no problems since" per RN phone interview- no further details Hyperlipidemia Hypertension Maintenance chemotherapy Microscopic colitis dx 01/2019- on steriod (budesonide)* Port-A-Cath in place Pre-diabetes SOB (shortness of breath) on exertion Surgical History H/O heart artery stent MID RCA BMS X 1 (2012) History of biopsy T9 BIOPSY= 10/13/18= GRADE 2 VIEW, MAC 4, ETT 7.5 AT [facility] History of bronchoscopy WITH BIOPSY History of colonoscopy History of lung surgery right thoracoscopy and bronchoscopy 12/03/18 History of tonsillectomy Social History Preferred Language: Spanish Communication Ability: Effective Visual Impairment: No Limitations Hearing Ability: Normal Brilliandeer Looper Required: No Beliefs That Will Affect Care: None marital status: / Current Living Situation: Family Current Living Situation Comment: lives with son current occupational status: retired and disabled current occupation: Worked at [employer]-exposure to organic solvents, lead,etc Other Information That Helps Us Care for You: No other: Disabled since September of 2018 Feels Safe at Home: Yes Safety Concerns: Feels Safe At This Time Smoking Status: Current every day smoker Tobacco Type: cigarettes ; Cigarettes Per Day: 15-20 ; Do You Dip or Chew Tobacco: No ; Second Hand Exposure: Yes ; Tobacco Cessation Education Requested by Patient: No Hx Alcohol Use: Yes Alcohol type: beer Alcohol Intake Frequency Comment: 3-4 beers per day on average. Hx Substance Use: No
[2019-05-29 06:10] LABS: Hematocrit (blood only) 38.6 % (42-52); Hemoglobin 12.8 g/dL (14.0-18.0); Mean Corpuscular Volume 100.8 fL (80-100); Nucleated RBC # (auto) 0.03 K/uL (0-0); Nucleated RBC % (auto) 0.8 %; Red Blood Count 3.83 M/uL (4.7-6.1); White Blood Count 3.58 K/uL (4.8-10.8)
[2019-05-29] MEDS ORDERED: ePHEDrine sulfate 50 MG/ML AMP IV PRN (06:24)
[2019-05-29] MEDS ORDERED: ONDANSETRON INJ 2 MG/ML 2 ML VIAL IV PRN ×2 (06:24→12:54)
[2019-05-29] MEDS ORDERED: fentaNYL citrate 100 MCG/2 ML VIAL IV PRN (06:24)
[2019-05-29] MEDS ORDERED: ATROPINE SULFATE 0.1 MG/ML 10ML SYR IV PRN (06:24)
[2019-05-29 06:51] LABS: Mean Corpuscular Hgb Conc 33.2 g/dL (32-36); Mean Platelet Volume 10.2 fL (7.4-10.4); Platelet Count 71 K/uL (130-400)
[2019-05-29] MEDS ORDERED: LARYING-O-JET KIT (LTA) ONE (06:54)
[2019-05-29] MEDS ORDERED: DEXAMETHASONE SOD INJ 4 MG/ML VIAL ONE (06:54)
[2019-05-29] MEDS ORDERED: PROPOFOL IV EMULSION 10 MG/ML 20 ML VIAL IV ONE (06:54)
[2019-05-29] MEDS ORDERED: fentaNYL citrate 100 MCG/2 ML VIAL ONE ×2 (06:54→09:13)
[2019-05-29] MEDS ORDERED: LIDOCAINE HCL 2% 2 ML VIAL/AMP(20MG/ML) INFIL ONE (06:54)
[2019-05-29] MEDS ORDERED: HYDROmorphone INJ 2 MG/ML SYR/VIAL ONE (06:54)
[2019-05-29] MEDS ORDERED: MIDAZOLAM HCL 1 MG/ML 2ML VIAL ONE (06:54)
[2019-05-29] MEDS ORDERED: ONDANSETRON INJ 2 MG/ML 2 ML VIAL ONE (06:54)
[2019-05-29] MEDS ORDERED: SODIUM CHLORIDE 0.9% 250 ML IV PRN (07:00)
[2019-05-29] MEDS ORDERED: HEPARIN (PORCINE) 1000 UNIT/ML 10 ML (CATH LAB USE ONLY) ONE (07:07)
[2019-05-29] MEDS ORDERED: THROMBIN FOR SOLN 20000 UNIT KIT ONE (07:07)
[2019-05-29] MEDS ORDERED: GELATIN SPONGE SZ 100 ONE (07:07)
[2019-05-29] MEDS ORDERED: CEFAZOLIN 250 MG/ML 1 GM VIAL ONE (07:07)
[2019-05-29] MEDS ORDERED: BUPIVACAINE/EPINEPHRINE 0.5% MPF 1:200,000 30 ML VIAL ONE ×2 (07:07→08:30)
[2019-05-29] MEDS ORDERED: LIDOCAINE HCL 1% 20 ML VIAL ONE ×2 (07:07→08:30)
[2019-05-29 07:09] LABS: Basophils # (auto) 0.01 K/uL (0-0.2); Basophils % (auto) 0.3 %; Eosinophils # (auto) 0.16 K/uL (0-0.5); Eosinophils % (auto) 4.5 %; Giant Platelets 1+; Immature Granulocytes # (auto) 0.02 K/uL (0.00-0.02); Immature Granulocytes % (auto) 0.6 %; Lymphocytes # (auto) 2.21 K/uL (1.2-3.4); Lymphocytes % (auto) 61.7 %; Monocytes # (auto) 0.56 K/uL (0.11-0.59); Monocytes % (auto) 15.6 %; Neutrophils # (auto) 0.62 K/uL (1.4-6.5); Neutrophils % (auto) 17.3 %
--- NOTE | 2019-05-29 08:02 | History & Physical Bridge Note ---
Date of Service May 29, 2019 History & Physical Bridge Note I have examined the patient, reviewed the History & Physical and in the interval since the performance of the History & Physical I have noted the following changes of clinical significance: no changes noted
[2019-05-29] MEDS ORDERED: BACITRACIN INJ 50,000 UNIT VIAL ONE (08:25)
[2019-05-29] MEDS ORDERED: HEPARIN SOD (PORCINE) 1000 UNIT/ML 10 ML VIAL ONE (10:22)
[2019-05-29] MEDS ORDERED: ePHEDrine sulfate 50 MG/ML SYR ONE (10:23)
[2019-05-29] MEDS ORDERED: NITROGLYCERIN/D5W 100 MCG/ML BTL ONE (10:23)
[2019-05-29] MEDS ORDERED: PROTAMINE SULFATE 10 MG/ML 5 ML VIAL ONE (10:54)
[2019-05-29] MEDS ORDERED: GLYCOPYRROLATE 0.2 MG/ML VIAL ONE (11:00)
[2019-05-29] MEDS ORDERED: ROCURONIUM BROMIDE 10 MG/ML 5 ML VIAL ONE (11:00)
[2019-05-29] MEDS ORDERED: NEOSTIGMINE METHYLSULFATE 5 MG/5 ML SYR ONE (11:00)
--- NOTE | 2019-05-29 11:15 | Post Operative Brief Note ---
Immediate Post Op Note v1 Date of Surgery May 29, 2019 Pre & Post Diagnosis Operation Date: 05/29/19 08:00 Pre-Op Diagnosis: Right Internal Carotid Artery Stenosis Post-Op Diagnosis: Right Internal Carotid Artery Stenosis Procedure Operation Date: 05/29/19 08:00 Actual Procedures p Right Carotid Endarterectomy(Right) - Gutierrez Johnson MD Surgeon Gutierrez Johnson MD Bass Singer MD Viraj Estimated Blood Loss 80 Findings Consistent with Post-Op Diagnosis Anesthesia Type General Complications none Disposition Accompanied Patient To Recovery: No Disposition: Recovery Room
--- NOTE | 2019-05-29 11:35 | Operative Report ---
Post Operative Report Pre & Post Diagnosis Operation Date: 05/29/19 08:00 Pre-Op Diagnosis: Right Internal Carotid Artery Stenosis Post-Op Diagnosis: Right Internal Carotid Artery Stenosis Procedure Operation Date: 05/29/19 08:00 Actual Procedures p Right Carotid Endarterectomy(Right) - Gutierrez Johnson MD Surgeon Gutierrez Johnson MD Sweet Dough Mixer MD Viraj, Jennifer Garcia PA-C Estimated Blood Loss 80 Findings Consistent with Post-Op Diagnosis Fluids 900 cc Specimens carotid endarterectomy Drains none Anesthesia Type General Complications none Disposition Accompanied Patient To Recovery: No Disposition: Recovery Room Indications symptomatic carotid artery stenosis Description of Procedure The patient was taken to the operating room and placed in supine position. After general anesthesia was accomplished the right side of the neck was prepped and draped in a sterile manner. The patient was identified and a timeout performed. A longitudinal neck incision was then made coursing along the medial border of the sternocleidomastoid muscle. The incision was taken down through the platysmal layer. The facial vein was identified, ligated, and divided. The common carotid artery was then seen. It was dissected free down to the omohyoid muscle. The dissection was carried upward until the external carotid artery and superior thyroid artery were seen. The superior thyroid artery was slung with a 2-0 silk suture. The external carotid was slung with a red rubber vessel loop. Next the dissection was carried up along the internal carotid artery. This was carried upward to beyond the area of narrowing. The hypoglossal nerve was seen and preserved. The patient was heparinized. After adequate heparinization was accomplished, the internal, external, and common carotid arteries were clamped. A longitudinal arteriotomy was started on the common carotid artery and extended upward along the internal carotid artery to a point beyond the area of narrowing. There was calcified plaque of the internal carotid artery origin causing approximately 85-90% narrowing. A sundt shunt was then placed in the internal, followed by the common carotid artery and held in place with Damion clamps. There was good back bleeding seen from the internal carotid artery. The endarterectomy was then started in the appropriate plane on the common carotid artery. This was carried upward and the origin of the external carotid was everted and endarterectomized. The endarterectomy was then carried up along the internal carotid artery till a nice feathering breakoff point was accomplished beyond the end of the plaque. The endarterectomy was then carried down further on the common carotid artery. At end of the arteriotomy, the plaque was then transected. Under loop magnification, all loose debris and flaps were removed. There is no distal flap seen at the end of the e ndarterectomy site. The arteriotomy then closed using a bovine pericardium patch and a running 6-0 prolene suture. This was done in the usual vascular fashion. Prior to completing the closure, the shunt was removed and the internal and common carotid arteries were reclamped. Backbleeding and forward bleeding was allowed to occur. The flow surface was irrigated with heparinized saline. The final few sutures were then placed and securely tied. Clamps were then removed off the external and common carotid arteries. The clamp was then removed the internal carotid artery. Good distal flow was seen. Adequate hemostasis was seen of the patch. The wound was inspected and adequate hemostasis was obtained. The wound was irrigated with antibiotic solution. It was then closed with a running 3-0 Vicryl suture for the platysmal layer and a 4-0 subcuticular Vicryl suture for the skin edges. Dermabond was used for dressing. The patient left the operating room in satisfactory condition and tolerated the procedure well. Dr. Johnson was present and scrubbed for the entire procedure. I attest to the content of the Intraoperative Record and any orders documented therein. Any exceptions are noted below.
--- NOTE | 2019-05-29 12:24 | Anesthesiology Progress Note ---
Date of Service May 29, 2019 Anesthesia Post Procedure Vital Signs Vital Signs: Temp Pulse Pulse Pulse Resp BP BP 05/29/19 12:15 72 16 119/65 05/29/19 12:05 66 12 107/63 05/29/19 11:55 68 14 124/79 05/29/19 11:45 97.5 F L 71 12 126/70 05/29/19 07:42 98.4 F 76 20 150/87 H 05/29/19 07:11 98.4 F 75 16 164/93 H 05/29/19 07:01 98.6 F 81 18 176/86 H 05/29/19 06:41 76 18 170/97 H 05/29/19 06:26 97.9 F 83 18 172/92 H BP Pulse Ox 05/29/19 12:15 100 05/29/19 12:05 100 05/29/19 11:55 141/74 H 100 05/29/19 11:45 98 05/29/19 07:42 97 05/29/19 07:11 99 05/29/19 07:01 99 05/29/19 06:41 99 05/29/19 06:26 99 Transfer of Care Handoff Completed per policy Notes Mental Status: alert / awake / arousable and participated in evaluation Patient Amnestic to Procedure: Yes Nausea / Vomiting: adequately controlled Pain: adequately controlled Airway Patency, RR, SpO2: stable & adequate BP & HR: stable & adequate Hydration State: stable & adequate Anesthetic Complications: no major complications apparent and Pt Satisfied with anesthetic care
[2019-05-29] MEDS ORDERED: OXYCODONE PO PRN (12:54)
[2019-05-29] MEDS ORDERED: PROCHLORPERAZINE MALEATE 10 MG TAB PO PRN (12:54)
[2019-05-29] MEDS ORDERED: ALPRAZolam 0.5 MG TABLET PO PRN (12:54)
[2019-05-29] MEDS ORDERED: NITROGLYCERIN SL 0.4 MG/TAB TAB SL PRN (12:54)
[2019-05-29] MEDS ORDERED: MoRPHine SULFATE 2 MG/ML CARP IV PRN (12:54)
[2019-05-29] MEDS ORDERED: ONDANSETRON 8 MG TABLET PO PRN (12:54)
[2019-05-29] MEDS ORDERED: SODIUM CHLORIDE 0.9% 1000ML 1,000 ML IV SCH (13:30)
--- NOTE | 2019-05-29 13:52 | Critical Care Consultation ---
Date of Consultation May 29, 2019 Assessment & Plan (1) Stenosis of right internal carotid artery with cerebral infarction: Reason Critically Ill: 63-year-old male with history of CAD with [place] and stent to RCA, adenocarcinoma currently undergoing chemotherapy, and recent CVA where he was discovered to have significant stenosis of the right internal carotid now presents to the ICU status post right carotid endarterectomy. Neuro - [facility]: Negative Right carotid artery stenosis with cerebral infarctstatus post right carotid endarterectomy -Patient was reportedly on aspirin Plavix regimen already for CAD but it stopped taking Plavix due to cost -Had recent right hemisphere CVA, did not undergo intervention. - Cardiac - CADprevious [place] with stent to RCA -Last echo LVEF 55-60, LV hypertrophy, grade 1 diastolic dysfunction -EKG yesterday in clinic showed normal sinus rhythm and no changes from previous study -Continue Lipitor, ASA, Plavix HTNpatient required nitro drip immediately postop, now off -Continue home MTP Respiratory - Adenocarcinoma of the lungstatus post wedge resection and radiation therapy. Now undergoing chemotherapy every 3 weeks. -Patient has social history of cigarette smoking, still actively smoking GI - Heart healthy diet Continue PPI home med RENAL/LYTES - Creatinine electrolytes within normal limits from previous day labs, will recheck in a.m. and replete if necessary - Voiding without issue Strict I's and O's ENDO - No history diabetes or hypothyroid ICU hyperglycemic protocol HEME - Pancytopenialikely related to chemotherapy, improving from last admission -No transfusions indicated at this time and patient is not neutropenic, will monitor ID - No suspicion for infectious process LINES/IV ACCESS - Peripheral IVs DVT PROPHYLAXIS - SCDs, will hold anticoagulation at this time for post endarterectomy Thank you for allowing us to participate in the care of this patient. Please refer to my attending physician's documentation for any further recommendations. (2) Hypertension: (3) Hyperlipidemia: (4) Coronary artery disease: (5) Anemia: (6) Adenocarcinoma: Supervising Physician Co-Signing Physician Notes Patient seen and examined. Electronic medical record reviewed. Discussed briefly with vascular surgery. Agree with OC note as documented. 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 He returned to the ICU extubated and hemodynamically stable for postoperative monitoring. We will continue to monitor hemodynamics per vascular surgery protocol. DVT prophylaxis per surgery. Continue blood pressure management. Smoking cessation recommended. Patient will require continued follow-up and imaging with his outpatient hematology oncology and radiation oncology service. Discussed with patient family at bedside. History of Present Illness Attending Physician: Gutierrez Johnson MD History of Present Illness Mr. Kellogg is a 63-year-old male with past medical history significant for CAD as/P [place] with stent to RCA, HTN, HLD, lung adenocarcinoma for which she had a wedge resection followed by radiation and is undergoing chemo every 3 weeks, and recent right hemisphere CVA and was found to have severe right internal carotid artery stenosis of over 90%. He now presents to the ICU status post right carotid endarterectomy. He is currently hemodynamically stable, without need for vasopressors. He is comfortable on room air. He does complain of a slight headache, however he was initially on nitro drip before transfer to the ICU, which is now turned off. He denies dizziness, syncope, changes in vision, numbness or weakness. Cranial nerves I through XII are intact. He denies chest pain, palpitations, shortness of breath, nausea or vomiting, abdominal tenderness, diarrhea. Patient to remain in ICU overnight following acute phase postoperatively. Allergies Allergy/AdvReac Type Severity Reaction Status Date / Time latex Allergy Intermediate RASH Verified 05/29/19 06:15 Penicillins Allergy Intermediate MOUTH LIPS Verified 05/29/19 06:15 AND TONGUE SWELLING bee venom protein (honey bee) AdvReac Intermediate SWELLING, Verified 05/29/19 06:15 THROAT SWELLING Home Medications Home Medications Medication Instructions Recorded Confirmed Type guaifenesin [Mucinex] 600 mg PO HS 09/29/18 05/29/19 History metoprolol succinate 25 mg PO HS 09/29/18 05/29/19 History nitroglycerin [Nitrostat] 0.4 mg SUBLINGUAL DIRECTED PRN 09/29/18 05/28/19 History alprazolam 0.5 mg tablet 0.5 mg PO HS PRN 10/31/18 05/29/19 History oxycodone 5 - 10 mg PO Q4H PRN 11/07/18 05/29/19 History pantoprazole 40 mg PO DAILY 11/26/18 05/29/19 History prochlorperazine maleate 10 mg PO Q6H PRN 11/26/18 05/28/19 History potassium chloride 20 meq PO QAM 02/05/19 05/29/19 History Cancer Treatment Medications 0 mg UNKNOWN 05/23/19 05/28/19 History budesonide 9 mg PO QAM 05/23/19 05/29/19 History ondansetron HCl 8 mg PO DIRECTED PRN 05/23/19 05/28/19 History atorvastatin 80 mg tablet 80 mg PO HS #90 tab 05/25/19 05/29/19 Rx clopidogrel 75 mg PO QAM #30 tab 05/26/19 05/29/19 Rx fluticasone propion-salmeterol 1 puff INHALATION BID #1 ea 05/26/19 05/29/19 Rx [Advair Diskus] aspirin [Aspirin Low Dose] 81 mg PO QAM 05/27/19 05/29/19 History fentanyl 1 patch TRANSDERMAL Q3D@14 05/27/19 05/29/19 History cyanocobalamin (vitamin B-12) See Rx Instructions .ROUTE .COMPLEX 05/28/19 05/29/19 History ibuprofen 200 mg capsule See Rx Instructions .ROUTE 05/28/19 05/29/19 History .COMPLEX PRN Patient History Social History Preferred Language: Ukrainian Communication Ability: Effective Visual Impairment: No Limitations Hearing Ability: Normal Anode Builder Required: No Beliefs That Will Affect Care: None marital status: / Current Living Situation: Family Current Living Situation Comment: lives with son current occupational status: retired and disabled current occupation: Worked at [employer]-exposure to organic solvents, lead,etc Other Information That Helps Us Care for You: No other: Disabled since September of 2018 Feels Safe at Home: Yes Safety Concerns: Feels Safe At This Time Smoking Status: Current every day smoker Tobacco Type: cigarettes ; Cigarettes Per Day: 15-20 ; Do You Dip or Chew Tobacco: No ; Second Hand Exposure: Yes ; Tobacco Cessation Education Requested by Patient: No Hx Alcohol Use: Yes Alcohol type: beer Alcohol Intake Frequency Comment: 3-4 beers per day on average. Hx Substance Use: No Review of Systems Review of Systems: All systems reviewed & are unremarkable except as noted in HPI & below Physical Exam Eyes: PERRL, conjunctivae normal, anicteric sclerae ENMT: external ear and nose normal, oropharynx normal Neck: trachea midline, no thyromegaly Respiratory: normal respiratory effort, lungs clear to auscultation Cardiovascular: RRR, no murmur, no edema Heart Sounds: normal S1 and normal S2 Gastrointestinal (Abdomen): normal bowel sounds, soft, nontender, no hepatosplenomegaly Skin: no rashes, warm and dry Neurologic: PERRL, EOMI, accommodation nl, no face palsy, no dysarthria Psychiatric: A+Ox3, euthymic affect Results & Data Vital Signs (Past 12 Hours) Vital Signs Temp Pulse Pulse Pulse Resp BP BP 05/29/19 13:15 68 14 118/65 05/29/19 13:10 66 15 05/29/19 13:00 70 16 129/75 05/29/19 12:53 71 16 05/29/19 12:45 36.8 C 63 16 154/75 H 05/29/19 12:30 36.5 C 62 16 121/63 05/29/19 12:15 72 16 119/65 05/29/19 12:05 66 12 107/63 05/29/19 11:55 68 14 124/79 05/29/19 11:45 36.4 C L 71 12 126/70 05/29/19 07:42 36.9 C 76 20 150/87 H 05/29/19 07:11 36.9 C 75 16 164/93 H 05/29/19 07:01 37.0 C 81 18 176/86 H 05/29/19 06:41 76 18 170/97 H 05/29/19 06:26 36.6 C 83 18 172/92 H BP Pulse Ox 05/29/19 13:15 99 05/29/19 13:10 97 05/29/19 13:00 97 05/29/19 12:53 97 05/29/19 12:45 96 05/29/19 12:30 100 05/29/19 12:15 100 05/29/19 12:05 100 05/29/19 11:55 141/74 H 100 05/29/19 11:45 98 05/29/19 07:42 97 05/29/19 07:11 99 05/29/19 07:01 99 05/29/19 06:41 99 05/29/19 06:26 99 PG Care Time/CCT Total # of Minutes Spent Total Time Spent with Patient: Total time spent is greater than 50% in coordination of care (as documented) at patient's floor/unit and/or counseling patient: (1) Anemia Anemia type: unspecified type Qualified Code(s): D64.9 - Anemia, unspecified (2) Hypertension Hypertension type: unspecified Qualified Code(s): I10 - Essential (primary) hypertension
[2019-05-29] MEDS ORDERED: CONVERT TO SALINE LOCK ONE (14:56)
[2019-05-29] MEDS: CLINDAMYCIN 600 MG in DEXTROSE 5% 50 ML IV SCH (15:21)
[2019-05-29] MEDS: OXYCODONE/ACETAMINOPHEN 5mg/325mg TAB PO PRN ×2 (15:22→21:39)
[2019-05-29] MEDS: CHECK FENTANYL PATCH PLACEMENT SCH (15:23)
[2019-05-29] MEDS ORDERED: ATORVASTATIN 40 MG TAB PO SCH (21:00)
[2019-05-29] MEDS ORDERED: METOPROLOL SUCC 25MG EXT REL TAB PO SCH (21:00)
[2019-05-29] MEDS ORDERED: guaiFENesin 600 MG TABCR PO SCH (21:00)
[2019-05-29] MEDS: FLUTICASONE/SALMETEROL 250/50 (ADVAIR) 14 PUFF/1 INHALER INH SCH (21:31)
[2019-05-30] MEDS: CHECK FENTANYL PATCH PLACEMENT SCH ×2 (00:24→08:30)
[2019-05-30] MEDS: CLINDAMYCIN 600 MG in DEXTROSE 5% 50 ML IV SCH (00:24)
[2019-05-30] MEDS: OXYCODONE/ACETAMINOPHEN 5mg/325mg TAB PO PRN (04:04)
[2019-05-30 05:44] LABS: BUN Creatinine Ratio 8.9 (10-20); Creatinine Clr Calc Pharmacy 71.2 ml/min; Est GFR (African American) 85.8; Potassium 4.2 mmol/L (3.5-5.1)
[2019-05-30 05:59] LABS: Hematocrit (blood only) 28.9 % (42-52); Hemoglobin 9.5 g/dL (14.0-18.0); Mean Corpuscular Hgb Conc 32.9 g/dL (32-36); Mean Corpuscular Volume 99.3 fL (80-100); Mean Platelet Volume 11.2 fL (7.4-10.4); Nucleated RBC # (auto) 0.02 K/uL (0-0); Nucleated RBC % (auto) 0.5 %; Platelet Count 97 K/uL (130-400); RDW Coefficient of Variation 20.7 % (11.5-14.5); RDW Standard Deviation 74.2 fL (36.4-46.3); Red Blood Count 2.91 M/uL (4.7-6.1); White Blood Count 3.19 K/uL (4.8-10.8)
[2019-05-30 06:10] LABS: Anisocytosis Present; Basophils # (auto) 0.01 K/uL (0-0.2); Basophils % (auto) 0.3 %; Eosinophils # (auto) 0.01 K/uL (0-0.5); Eosinophils % (auto) 0.3 %; Immature Granulocytes # (auto) 0.05 K/uL (0.00-0.02); Immature Granulocytes % (auto) 1.6 %; Lymphocytes # (auto) 1.29 K/uL (1.2-3.4); Lymphocytes % (auto) 40.4 %; Monocytes # (auto) 0.83 K/uL (0.11-0.59); Neutrophils % (auto) 31.4 %
[2019-05-30 06:21] VITALS: O2SAT 98
--- NOTE | 2019-05-30 07:44 | Surgery Progress Note ---
Date of Service May 30, 2019 Assessment & Plan (1) Stenosis of right internal carotid artery with cerebral infarction: The patient underwent an uneventful right carotid enterectomy. He is stable at this time and ready for discharge. We will see him in the office in 2 weeks for follow-up. Subjective Patient has no complaints other than the food. He denies any swallowing difficulties. Denies any speech difficulties. He denies any focal findings. Physical Exam Physical Exam: On exam he is awake and alert. He is oriented x3. He has no new neurological deficits. His slight lip droop was markedly improved. His tongue is midline. The incision is dry and clean. Results & Data Vital Signs (Past 12 Hours) Vital Signs Temp Pulse Resp BP Pulse Ox 05/30/19 06:00 36.8 C 67 20 138/66 98 05/30/19 05:00 76 20 129/67 94 05/30/19 04:00 36.6 C 69 17 125/61 97 05/30/19 03:00 65 15 129/63 96 05/30/19 02:00 80 13 130/65 96 05/30/19 01:00 56 L 16 140/67 97 05/30/19 00:00 36.4 C L 53 L 15 111/54 L 96 05/29/19 23:00 54 L 19 118/59 L 97 05/29/19 22:00 59 L 19 118/67 97 05/29/19 21:45 54 L 17 125/56 L 98 05/29/19 21:30 65 18 109/56 L 94 05/29/19 21:15 55 L 15 109/60 96 05/29/19 21:00 56 L 16 105/49 L 97 05/29/19 20:45 60 19 99/53 L 97 05/29/19 20:30 63 22 115/66 98 05/29/19 20:15 54 L 16 121/62 98 05/29/19 20:00 36.4 C L 59 L 19 133/66 98 05/29/19 19:46 60 21 111/99 98
--- NOTE | 2019-05-30 07:49 | Pulmonology Progress Note ---
Date of Service May 30, 2019 Assessment & Plan (1) Carotid stenosis, right: Impression: 63-year-old male with history of lung cancer found to have carotid stenosis status post carotid endarterectomy. He is done well overnight. Recommendations: 1. Post carotid endarterectomy: Management per vascular surgery. He is doing well and will likely be transferred to the floor later today. PT OT as appropriate and out of bed as tolerated. Discussed with vascular surgery 2. Lung cancer: Receives chemotherapy at [facility]. Continue management and follow- up with them. 3. Hypertension: Blood pressure goals per vascular surgery. Tolerating oral diet. 4. Mild anemia: No indication for acute transfusion. Follow. The patient will transfer out of the ICU today. Will sign off once he leaves the ICU. Feel free to contact us with additional pulmonary critical care issues. (2) Hypertension: Hypertension type: unspecified Qualified Code(s): I10 - Essential (primary) hypertension (3) Hyperlipidemia: (4) Coronary artery disease: (5) Adenocarcinoma: Subjective No new complaints. He is tolerating a diet and swallowing well. No neuro code. Review of Systems Review of Systems: All systems reviewed & are unremarkable except as noted in HPI & below No change from prior Constitutional: no fever, no chills, no sweats, no fatigue and no weight loss Ear, Nose, Mouth, Throat: no nasal congestion, no nasal discharge and no epistaxis Respiratory: no cough, no dyspnea and no hemoptysis Cardiovascular: no chest pain with activity, no palpitations and no edema Gastrointestinal: no abdominal pain, no nausea, no vomiting and no dysphagia Musculoskeletal: no joint pain and no myalgia Integumentary: no rash and no lesions Neurologic: no generalized weakness, no tingling, no paresthesia, no dizziness and no syncope Psychiatric: no anxiety Endocrine: no polydipsia and no cold intolerance Hematologic / Lymphatic: no easy bleeding and no lymphadenopathy Physical Exam Constitutional: WD/WN, vitals as above Neck: trachea midline, no thyromegaly Respiratory: normal respiratory effort, lungs clear to auscultation Cardiovascular: RRR, no murmur, no edema Gastrointestinal (Abdomen): normal bowel sounds, soft, nontender, no hepatosplenomegaly Musculoskeletal: Extremities: extremities normal to inspection Skin: no rashes, warm and dry Neurologic: Nonfocal exam Lymphatic: no cervical lymphadenopathy Results & Data Vital Signs (Past 12 Hours) Vital Signs Temp Pulse Resp BP Pulse Ox 05/30/19 06:00 36.8 C 67 20 138/66 98 05/30/19 05:00 76 20 129/67 94 05/30/19 04:00 36.6 C 69 17 125/61 97 05/30/19 03:00 65 15 129/63 96 05/30/19 02:00 80 13 130/65 96 05/30/19 01:00 56 L 16 140/67 97 05/30/19 00:00 36.4 C L 53 L 15 111/54 L 96 05/29/19 23:00 54 L 19 118/59 L 97 05/29/19 22:00 59 L 19 118/67 97 05/29/19 21:45 54 L 17 125/56 L 98 05/29/19 21:30 65 18 109/56 L 94 05/29/19 21:15 55 L 15 109/60 96 05/29/19 21:00 56 L 16 105/49 L 97 05/29/19 20:45 60 19 99/53 L 97 05/29/19 20:30 63 22 115/66 98 05/29/19 20:15 54 L 16 121/62 98 05/29/19 20:00 36.4 C L 59 L 19 133/66 98 05/29/19 19:46 60 21 111/99 98 Laboratory Results 05/30/19 04:51 05/30/19 04:51 PG Care Time/CCT Total # of Minutes Spent Total Time Spent with Patient: Total time spent is greater than 50% in coordination of care (as documented) at patient's floor/unit and/or counseling patient:
[2019-05-30] MEDS: FLUTICASONE/SALMETEROL 250/50 (ADVAIR) 14 PUFF/1 INHALER INH SCH (08:21)
[2019-05-30 08:32] VITALS: TEMP 98.4
[2019-05-30 08:35] VITALS: BP 121/63; PULSE 62
[2019-05-30] MEDS ORDERED: POTASSIUM CHLORIDE 10 MEQ TABCR PO SCH (09:00)
[2019-05-30] MEDS ORDERED: PANTOprazole 40 MG TAB PO SCH (09:00)
[2019-05-30] MEDS ORDERED: BUDESONIDE EC 3 MG CAP PO SCH (09:00)
[2019-05-30] MEDS ORDERED: CLOPIDOGREL BISULFATE 75 MG TAB PO SCH (09:00)
[2019-05-30] MEDS ORDERED: ASPIRIN 81 MG ECTAB PO SCH (09:00)
[2019-05-31] MEDS ORDERED: fentaNYL 100 MCG/HR TDSY TD SCH (14:00)
--- NOTE | 2019-06-01 08:06 | Discharge Summary ---
Date of Service June 01, 2019 Admission HPI Per Admitting Provider May 26, 2019 Assessment & Plan (1) Stenosis of right internal carotid artery with cerebral infarction: Pt with noted severe R ICA stenosis and R hemispheric CVA. Pt discussed with Dr Almaraz, recommends pt consider R CEA, can schedule for TUESDAY 05/29, inpt or outpt if pt is d/c prior to then. Will likely need card clearance prior. Procedure discussed at length with pt. Pt is agreeable and wishes to schedule surgery. Present on Admission?: Yes History of Present Illness Reason for Consultation: JORGE stenosis with CVA Attending Physician: Phong Rubio MD History of Present Illness 63 yo m with multiple medical problems, including CAD s/p SC and coronary stent placement in remote past, as well as lung adenocarcinoma currently undergoing chemo, HTN, hyperlipidemia, admitted with L sided weakness and found ot have R hemispheric CVA and associated severe R ICA stenosis, seen in consultation today. Pt states he started noticing L hand weakness about 4-5 days RANGE AID, which worsened until he was unable to pull his socks up. He came to [facility] for eval and was found to have R hemispheric CVA and over 90% R ICA stenosis on CTA. Pt states sx have improved since admission, but still feels slightly weak in left hand. Did note some black spots in hir R eye vision last week as well, which resolved. States associated R sided BARROS, which as also resolved. Recently stopped taking plavix d/t cost, but was still taking 81mg ASA. Denies vision problems currently, BARROS, fever, recent illness,chest pain, SOB, abd pain, N/V, rest pain, claudication, other complaints. [place] José Miguel Nice [place] [facility] [place] states was seen there about 1 month ago. No hx of prior TIA or CVA. Allergies Allergy/AdvReac Type Severity Reaction Status Date / Time latex Allergy Intermediate RASH Verified 05/23/19 14:28 Penicillins Allergy Intermediate MOUTH LIPS Verified 05/23/19 14:28 AND TONGUE SWELLING bee venom protein (honey bee) AdvReac Intermediate SWELLING, Verified 05/23/19 14:28 THROAT SWELLING Home Medications Home Medications Medication Instructions Recorded Confirmed Type clopidogrel 75 mg PO QAM 09/29/18 05/23/19 History guaifenesin [Mucinex] 600 mg PO HS 09/29/18 05/23/19 History metoprolol succinate 25 mg PO HS 09/29/18 05/23/19 History nitroglycerin [Nitrostat] 0.4 mg SUBLINGUAL DIRECTED PRN 09/29/18 05/23/19 History aspirin [Aspir-81] 81 mg PO QAM 10/10/18 05/23/19 History alprazolam 0.5 mg tablet 0.5 mg PO HS PRN 10/31/18 05/23/19 History oxycodone 5 - 10 mg PO Q4H PRN 11/07/18 05/23/19 History fentanyl 1 patch TRANSDERMAL Q72H 11/26/18 05/23/19 History pantoprazole 40 mg PO DAILY PRN 11/26/18 05/23/19 History prochlorperazine maleate 10 mg PO Q6H PRN 11/26/18 05/23/19 History potassium chloride 20 meq PO QAM 02/05/19 05/23/19 History Cancer Treatment Medications 0 mg UNKNOWN 05/23/19 05/23/19 History budesonide 9 mg PO DAILY 05/23/19 05/23/19 History ondansetron HCl 8 mg PO DIRECTED PRN 05/23/19 05/23/19 History atorvastatin 80 mg tablet 80 mg PO HS #90 tab 05/25/19 Rx Patient History Medical History CAD (coronary artery disease) MID RCA BMS X 1 (2012) COPD (chronic obstructive pulmonary disease) with emphysema (Acute) Carotid artery stenosis CARDIO MONITORING. 50-69% stenosis in JORGE, <50% in LICA per 2016 doppler. History of hepatitis B "NO PROBLEMS SINCE" PER RN INTERVIEW; NO FURTHER DETAILS Hyperlipidemia Hypertension Lung mass REASON FOR PROCEDURE; METASTATIC CARCINOMA ON T9 BIOPSY 10/13/18 Pre-diabetes NO MEDS SOB (shortness of breath) on exertion Surgical History H/O heart artery stent MID RCA BMS X 1 (2012) History of tonsillectomy (Acute) History of biopsy T9 BIOPSY= 10/13/18= GRADE 2 VIEW, MAC 4, ETT 7.5 AT [facility] History of bronchoscopy WITH BIOPSY History of colonoscopy History of lung surgery right thoracoscopy and bronchoscopy 12/03/18 History of procedure for peripheral vascular disease PORT PLACEMENT-IN PLACE Family History Mother , age 85 with heart issues Old age Heart disease Father , age 85 with COPD Old age COPD (chronic obstructive pulmonary disease) Brother No problems noted. Brother , still born No problems noted. Sister No problems noted. Sister No problems noted. Daughter No problems noted. Daughter No problems noted. Son Drug addiction Uncle , 46 Colon cancer Other No family history of adverse response to anesthesia Social History Preferred Language: Telugu Communication Ability: Effective Visual Impairment: No Limitations Hearing Ability: Normal Rn Lactation Consultant Required: No Beliefs That Will Affect Care: None marital status: / Current Living Situation: Family Current Living Situation Comment: lives with son current occupational status: retired and disabled current occupation: Worked at [email or web address]-exposure to organic solvents, lead,etc Other Information That Helps Us Care for You: No other: Disabled since September of 2018 Feels Safe at Home: Yes Smoking Status: Current every day smoker Tobacco Type: cigarettes ; Cigarettes Per Day: 15-20 ; Do You Dip or Chew Tobacco: No ; Second Hand Exposure: Yes ; Tobacco Cessation Education Requested by Patient: No Hx Alcohol Use: Yes Alcohol type: beer Alcohol Intake Frequency Comment: 3-4 beers per day on average. Hx Substance Use: No Review of Systems Review of Systems: All systems reviewed & are unremarkable except as noted in HPI & below (L hand weakness, improving) Physical Exam Constitutional: WD/WN, vitals as above well developed, well nourished, + thin, healthy appearing, well groomed, cooperative and comfortable; not in distress and not combative Eyes: PERRL, conjunctivae normal, anicteric sclerae EOM intact bilaterally ENMT: external ear and nose normal, oropharynx normal Ears: no hearing impairment Nose: no nasal discharge Throat: no posterior oropharynx abnormality Neck: trachea midline, no thyromegaly no tracheal deviation, no neck crepitus and neck nontender Respiratory: able to speak in complete sentences; does not use accessory muscles and no cough Auscultation: lungs clear to auscultation bilaterally and + diminished lung sounds; no rhonchi and no wheezes Cardiovascular: Rate/Rhythm: regular rate and regular rhythm Heart Sounds: no gallop and no murmur Vessels: + carotid bruit, femoral pulses present, posterior tibial pulses present, dorsalis pedis pulses present, brachial pulses present and radial pulses present; no femoral bruit and + abnormal peripheral pulses Extremities: normal capillary refill and + vascular access device (L chest infusaport); no edema Chest (Breasts): Chest: normal inspection of chest Gastrointestinal (Abdomen): normal bowel sounds, soft, nontender, no hepatosplenomegaly Inspection/Auscultation: abdomen normal to inspection and normal bowel sounds; abdomen not distended Percussion/Palpation: abdomen soft; abdomen nontender, no guarding, abdomen not rigid and no abdominal mass Musculoskeletal: Head/Neck/Chest: normocephalic, head atraumatic and neck supple Extremities: extremities normal to inspection; full ROM of extremities, + abnormal strength (L hand customer service representative 3/5, R 5/5), no clubbing and no amputation noted Skin: no rashes, warm and dry normal turgor; no rashes, no lesions, no ulcers, no induration, no erythema, no eschar, no excoriations, no mottling and no pallor Neurologic: moves all extremities, + focal motor deficit (L hand) and awake; not confused Speech / Cognition: no expressive aphasia and no receptive aphasia Motor/Sensory: no tremor and no sensory deficit Cranial Nerves: EOM intact bilaterally, normal facial strength and tongue midline Gait: not gait assisted Psychiatric: Orientation: alert, oriented x 3 and cooperative Apperance: appropriately dressed, appropriately groomed and appeared stated age Affect: euthymic affect Thought Process: goal directed thought process, linear/logical thought process and clear/coherent thought process Cognition: recent memory grossly intact, remote memory grossly intact, attention grossly intact and language grossly intact Estimated Intelligence: average estimated intelligence Results & Data Vital Signs (Past 12 Hours) Vital Signs Temp Pulse Pulse Resp BP BP Pulse Ox 05/26/19 07:00 36.5 C 59 L 18 122/78 98 05/26/19 03:21 36.7 C 66 20 126/83 97 05/26/19 01:03 61 Signed By: <Electronically signed by Jennifer Landon PA-C> 05/26/19 1217 <Electronically signed by Gutierrez Almaraz MD> 05/28/19 1357 Created: 05/26/19 1202 The status of this report is Signed. Draft = Not yet reviewed or approved by Medical Physician. Signed = Reviewed and approved by Medical Physician. Principal Diagnosis Right internal carotid artery stenosis with a right carotid endarterectomy. Discharge Exam Constitutional WD/WN, vitals as above Neck trachea midline Minimal neck swelling Cardiovascular Rate/Rhythm: regular rate and regular rhythm Skin + incision (Dry and clean) Neurologic Intact motor and sensory function. Discharge Data Allergies Allergy/AdvReac Type Severity Reaction Status Date / Time latex Allergy Intermediate RASH Verified 05/29/19 06:15 Penicillins Allergy Intermediate MOUTH LIPS Verified 05/29/19 06:15 AND TONGUE SWELLING bee venom protein (honey bee) AdvReac Intermediate SWELLING, Verified 05/29/19 06:15 THROAT SWELLING Consultations 05/29/19 08:03 Consult Fig Caprifier Routine Procedures Performed Operation Date: 05/29/19 08:00 Actual Procedures p Right Carotid Endarterectomy(Right) - Gutierrez Almaraz MD Ordered Studies 05/29/19 07:00 US guide vascular access Stat Hospital Course (1) Stenosis of right internal carotid artery with cerebral infarction: The patient underwent an uneventful right carotid enterectomy. He is stable at this time and ready for discharge on the first postoperative day.. We will see him in the office in 2 weeks for follow-up. Total Time Total Time Spent Total Time Spent (In Minutes): 30 Discharge Plan Discharge Items Patient Disposition: Home - Self-Care Reason For Visit: CAROTID STENOSIS Discharge Diagnosis: Right carotid endarterectomy Discharge Goals: Therapeutic intervention Activity: Per 'Additional Instructions' section Bathing Comment: may shower Non-emergency contact: Surgeon Call non-emergency contact if: you have any medication questions, your symptoms worsen, your pain is not controlled, your pain is worsening, your pain is unusual for you, your pain is concerning for you, your temperature is above 101.5, your wound has increased redness, your wound has increased drainage and your wound pain has increased Follow-up/Referrals: Esvin Peña MD [Primary Care Provider] - Diet: Heart Healthy Addtl Provider Instructions: SPECIAL CARE INSTRUCTIONS: Medications: * Continue to take Aspirin as directed. Incision Care: * You may shower, but do not rub incision. You may let the warm soapy water run over it. Be sure to dry the incision well after bathing. * Do not shave directly over the incision until it is healed. * DO NOT IMMERSE THE INCISION IN A TUB/POOL/etc. UNTIL HEALED. Restrictions: * Do not drive for at least one week or if you are still taking any narcotic pain medication. * Do not lift anything heavier than a gallon of milk for one week after going home. Possible Complications: * Numbness - It is normal to have some numbness around the incision. Numbness can extend beyond the incision to areas of the neck, ear and face. The numbness is due to bruising of nerves during the surgery and will gradually improve over a period of months. * Hoarseness/Difficulty Speaking and Swallowing - The bruising of nerves in the neck can also cause a hoarse voice, difficulty speaking or swallowing. This may improve over time, HOWEVER, if it continues for more than a few days please contact our office ([phone]). * Excessive Swelling - There will be some swelling immediately after surgery which usually resolves within one week. If you notice that the swelling is getting worse, notify your surgeon ([phone]). * Drainage/Bleeding - If there is any drainage or bleeding, it should be a very small amount (less than a teaspoon per day). If you have excessive bleeding or drainage from the incision, call your surgeon ([phone]) right away. ACTIVATION OF EMERGENCY MEDICAL SYSTEM: Call 911, immediately, if you experience any of the following: Warning Signs and Symptoms of Stroke: * Sudden numbness or weakness of the face, arm or leg, especially on one side of the body * Sudden confusion, trouble speaking or understanding * Sudden trouble seeing in one or both eyes * Sudden trouble walking, dizziness, loss of balance or coordination * Sudden severe headache with no cause Do not delay calling 911 if you experience any warning signs or symptoms of a stroke. Delay in seeking medical attention may affect what treatments can be given to you. Risk Factors for Stroke: You can reduce your chances of stroke by working with your medical provider to adopt a healthy lifestyle. Some specific ways to lower your chance of stroke are: * If you are a smoker, now is the time to stop smoking cigarettes * If you are diabetic, improve the control of your blood sugars * Avoid excessive amounts of alcohol * Control high blood pressure * Lose weight if you are overweight * Be sure to lead an active lifestyle * Eat a healthy diet low in salt, cholesterol and fat You should know about other risk factors for stroke that you are unable to control. These include: * Age 55 years or older * Male gender * Certain racial groups: , or / * Family History of Stroke, Mini stroke or Heart Attack * Sickle Cell Disease You will be receiving a call from the Vascular Surgery Nurse after you are discharged. FOLLOW UP VISIT: It is important for you to keep your follow up appointments with your medical provider. Keep any scheduled doctor appointments. Call [phone] to schedule a follow up appointment if one not already scheduled. Prescriptions: New oxycodone-acetaminophen [Percocet] 5-325 mg tablet 1 tab PO Q6H PRN (Reason: pain) Qty: 20 RF: 0 Continued atorvastatin 80 mg tablet 80 mg PO HS Qty: 90 RF: 3 cyanocobalamin (vitamin B-12) See Patient Comments .ROUTE .COMPLEX RF: 0 ibuprofen 200 mg capsule See Patient Comments .ROUTE .COMPLEX PRN (Reason: pain) RF: 0 metoprolol succinate 25 mg tablet extended release 24 hr 25 mg PO HS RF: 0 guaifenesin [Mucinex] 600 mg Tablet Extended Release 12hr 600 mg PO HS RF: 0 nitroglycerin [Nitrostat] 0.4 mg Tablet, Sublingual 0.4 mg Sublingual DIRECTED PRN (Reason: Chest Pain) RF: 0 alprazolam 0.5 mg tablet 0.5 mg PO HS PRN (Reason: anxiety) RF: 0 clopidogrel 75 mg tablet 75 mg PO QAM Qty: 30 RF: 4 fluticasone propion-salmeterol [Advair Diskus] 250-50 mcg/dose Blister With Device 1 puff inhalation BID Qty: 1 RF: 3 fentanyl 100 mcg/hr patch 72 hour 1 patch transdermal Q3D@14 RF: 0 aspirin [Aspirin Low Dose] 81 mg Tablet,Delayed Release (Dr/Ec) 81 mg PO QAM RF: 0 oxycodone 5 mg Capsule 5 - 10 mg PO Q4H PRN (Reason: Pain) RF: 0 prochlorperazine maleate 10 mg Tablet 10 mg PO Q6H PRN (Reason: Nausea) RF: 0 pantoprazole 40 mg Tablet,Delayed Release (Dr/Ec) 40 mg PO DAILY RF: 0 potassium chloride 10 mEq Capsule, Extended Release 20 meq PO QAM RF: 0 ondansetron HCl 8 mg tablet 8 mg PO DIRECTED PRN (Reason: Nausea) RF: 0 budesonide 3 mg capsule,delayed,extend.release 9 mg PO QAM RF: 0 Cancer Treatment Medications 0 MG UNKNOWN RF: 0 Stand-Alone Forms: [facility] [place] Discharge Orders: Discharge Order (Routine); Ordered 05/30/19 Ordered By: Gutierrez Almaraz Admission Data Admit Date/Time: 05/29/19 08:02 Attending Provider: Gutierrez Almaraz Admit Provider: Gutierrez Almaraz Primary Care Provider: Esvin Peña Other Providers: Malik Jones Service: Intensive Care Unit Other Interventions: Discharge Summary Assessment (RN) Last Done: 05/30/19 08:35 DC Date/Time DO NOT enter until pt leaves facility: 05/30/19 10:01
== END 2019-05-30 10:01 | disposition home or self-care (01) | DRG 37 ==
LOC: ASU 05:41 → 1E 08:02

== ENCOUNTER 2025-02-12 17:41 | Inpatient (IN) ==
[2025-02-12 18:24] LABS: Basophils # (auto) 0.01 K/uL (0.00-0.20); Basophils % (auto) 0.1 %; Hematocrit (blood only) 38.6 % (42.0-52.0); Hemoglobin 14.1 g/dl (14.0-18.0); Immature Granulocytes # (auto) 0.06 K/uL (0.01-0.20); Immature Granulocytes % (auto) 0.6 %; Lymphocytes # (auto) 0.71 K/uL (1.20-3.40); Lymphocytes % (auto) 7.4 %; Mean Corpuscular Hemoglobin 33.3 pg (25.0-34.0); Mean Corpuscular Hgb Conc 36.5 g/dL (32.0-36.0); Mean Corpuscular Volume 91.3 fL (80.0-100.0); Monocytes # (auto) 0.39 K/uL (0.11-0.59); Monocytes % (auto) 4.1 %; Neutrophils % (auto) 87.8 %; Platelet Count 304 K/uL (130-400); RDW Coefficient of Variation 12.8 % (11.5-14.5); Red Blood Count 4.23 M/uL (4.70-6.10); White Blood Count 9.57 K/ul (4.8-10.8)
--- NOTE | 2025-02-12 18:27 | Emergency Department Note ---
Impression & Plan Acute hyponatremia, Generalized weakness, Elevated lactic acid level, Transaminitis, Ambulatory dysfunction, Hypo-osmolality and hyponatremia ED Provider Note HISTORY OF PRESENT ILLNESS: Patient is a 69-year-old male presenting with hyponatremia. Patient reports he was having blood with obtained through the cancer center today when he was called late this evening that his sodium level was "extremely low." Patient states that he has stage IV lung cancer that has metastasized to his spine, liver and lymph nodes. He states that for the last few weeks, he has been having gait instability, frequent falls, generalized weakness and fatigue. He denies any vomiting or significant diarrhea in the last few weeks. He does report that today he started having diarrhea. Denies any recent medication changes. He reports his last round of cancer treatments with Keytruda in 2021. He states that he is supposed to be restarting chemo "soon." Patient denies any recent fevers or chills. He denies any chest pain or significant shortness of breath. He denies any abdominal pain. He reports in the last few weeks he has not had much in terms of an appetite. He states that his last fall was 2 to 3 days ago. He states that he has been falling frequently secondary to being unsteady on his feet. He denies any chest pain or shortness of breath prior to the falls. Patient denies any diuretic use. ROS: as above PHYSICAL EXAM: Constitutional: Patient appears in no acute distress. HENT: Head: Normocephalic and atraumatic. Eyes: EOMI, PERRL Mouth/Throat: Mucous membranes moist. Neck: Trachea midline. Neck supple. Cardiovascular: Tachycardic with regular rhythm. No murmurs, rubs or gallops. Intact distal pulses. Pulmonary/Chest: No respiratory distress. Breath sounds clear and equal bilaterally. No wheezes or rales. Abdominal: Abdomen soft, no tenderness, rebound or guarding. Musculoskeletal: No edema, tenderness or deformity noted. Skin: Warm and dry. No rash, erythema, pallor or cyanosis Psychiatric: Appropriate mood and affect for situation. Neurological: Alert and keenly responsive. CN II-XII grossly intact, moving all extremities equally and fully. MDM: - Vitals signs showed tachycardia - History obtained via patient. History as above. - Chronic conditions affecting care: CVA; CAD (s/p PCI); HTN; HLD; PAD; CKD; COPD; adenocarcinoma of lung - Differential diagnoses include, but are not limited to: Electrolyte abnormality; medication side effect; SIADH; dysrhythmia - Order placed for continuous cardiac monitoring. At this time, monitor showed rate of 97 bpm with normal sinus rhythm, per my interpretation. - External medical records reviewed. Oncology visit note dated 01/07/2025 was reviewed. Patient was seen for follow-up for his metastatic lung cancer. - EKG image interpreted by myself showed normal sinus rhythm. Rate tachycardic at 101 bpm. QT 356. No acute ischemic changes. - Laboratory workup interpreted by myself showed normal WBC; normal PT/INR; hyponatremia (Na 115); hypo-osmolality (osm 244); elevated lactate (2.4); transaminitis (AST 114; ALT 75 - about patient's baseline); normal calcium; normal magnesium; normal TSH; normal troponin - CXR image reviewed by myself is negative for pneumonia, per my interpretation. - Patient given 1L NS in ER. - UA and urine osmolality ordered. - Patient will need slow correction to his sodium level over the next 24 to 48 hours. Though he is alert and oriented and able to give his own history, concerned that his gait instability may be secondary to his hyponatremia symptoms. However, do not feel he requires hypertonic saline at this point, as again he is alert and oriented and answering questions. - Discussion was had with egg caser about patient's case and need for admission - Hospitalist, Dr. Holden, consulted for admission - [facility] further evaluation and management. ASSESSMENT AND PLAN: Diagnosis: Acute hyponatremia; generalized weakness; elevated lactic acid level; transaminitis; ambulatory dysfunction; hyperosmolality and hyponatremia Plan: admit Past Med/Surg History Problem List (Updated 02/12/25 @ 19:20 by Radha Mcnally MD) Hypo-osmolality and hyponatremia (Acute) Ambulatory dysfunction (Acute) Transaminitis (Acute) Elevated lactic acid level (Acute) Generalized weakness (Acute) Acute hyponatremia (Acute) Hypersomnia LAD (lymphadenopathy), mediastinal Chronic bronchitis Multiple pulmonary nodules Abnormal positron emission tomography (PET) scan Oral thrush 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 Heavy alcohol use Cigarette nicotine dependence Lymphocytic colitis Port-A-Cath in place Hx of carotid artery stenosis Chronic hyponatremia Stage 3b chronic kidney disease Vitamin D deficiency Proteinuria PAD (peripheral artery disease) Claudication of left lower extremity Hypertension (Acute) Hyperlipidemia Left hand weakness CAD (coronary artery disease) BMS x1 to mid RCA (2012) Medical History Metabolic acidosis CVA (cerebral vascular accident) Maintenance chemotherapy Carotid artery stenosis History of hepatitis B Hyperlipidemia Hypertension Surgical History H/O carotid endarterectomy History of lung surgery History of bronchoscopy History of tonsillectomy History of biopsy History of colonoscopy H/O heart artery stent Family History Mother Old age Heart disease Myocardial infarction Father Old age COPD (chronic obstructive pulmonary disease) Brother No problems noted. Brother No problems noted. Sister No problems noted. Sister No problems noted. Daughter No problems noted. Daughter No problems noted. Son Drug addiction Uncle Colon cancer Other No family history of adverse response to anesthesia Denies family history of Ovarian cancer Prostate cancer Breast cancer Social History Smoking Status: Never smoker Tobacco Type: Cigarettes Age Started Using Tobacco: 17; Age Quit Using Tobacco: 39; packs per day: 0.75; Cigarettes Per Day: 15-20; Second Hand Exposure: Yes; Do You Dip or Chew Tobacco: No; Hx Alcohol Use: Yes (4 beers daily ) Alcohol type: beer Alcohol Intake Frequency Comment: 3-4 beers per day on average. Hx Substance Use: No Preferred Language: French Communication Ability: Effective Visual Impairment: No Limitations Hearing Ability: Normal Enamel Buffer Required: No Beliefs That Will Affect Care: None marital status: / Current Living Situation: Family Current Living Situation Comment: lives with son current occupational status: retired and disabled current occupation: Worked at [employer]-exposure to organic solvents, lead,etc other: Disabled since September of 2018 Feels Safe at Home: Yes Childhood Exposure to Second-Hand Smoke: Yes Dental Care, Regularly: Yes Physical Activity Frequency: 1-2 Times per Week Seatbelt Use: always Sunscreen Use: Yes Assistive Devices: None Allergies Allergies Allergy/AdvReac Type Severity Reaction Status Date / Time latex Allergy Intermediate RASH Verified 02/12/25 18:54 Penicillins Allergy Intermediate MOUTH LIPS Verified 02/12/25 18:54 AND TONGUE SWELLING bee venom protein (honey bee) AdvReac Intermediate SWELLING, Verified 02/12/25 18:54 THROAT SWELLING acetaminophen AdvReac Unknown USES Verified 02/12/25 18:55 SPARINGLY D/T LIVER CA Home Meds Home Medications Medication Instructions Recorded Confirmed aspirin 81 mg tablet,delayed 81 mg PO QAM 05/27/19 02/12/25 release (Johnathan Low Dose Aspirin) fentanyl 75 mcg/hr transdermal 1 patch transdermal Q72H 11/16/22 02/12/25 patch oxycodone 10 mg tablet 10 mg PO Q6H PRN pain 11/16/22 02/12/25 multivitamin 1 tab PO DAILY 08/22/23 02/12/25 ibuprofen 200 mg tablet (IBU-200) 200 mg PO Q6H PRN Pain 08/24/23 02/12/25 temazepam 30 mg capsule 30 mg PO HS 10/30/24 02/12/25 Previous Rx's Medication Instructions Recorded nicotine 21 mg/24 hr daily 1 patch transdermal Q24H #28 ea 03/23/24 transdermal patch ezetimibe 10 mg tablet 10 mg PO DAILY #90 tabs 03/25/24 atorvastatin 80 mg tablet 80 mg PO HS #90 tabs 04/22/24 losartan 50 mg tablet 50 mg PO DAILY #90 tabs 04/22/24 potassium chloride 10 mEq 10 meq PO BID #180 tabs 05/18/24 tablet,extended release (Klor-Con) dexamethasone 1 mg tablet 1 mg PO DAILY PRN colitis flare 05/26/24 #60 tabs cilostazol 100 mg tablet 100 mg PO BID #180 tabs 07/29/24 metoprolol succinate 25 mg 25 mg PO HS #90 tabs 07/29/24 tablet,extended release 24 hr fluticasone fur. 200 mcg-umeclid 1 inh inhalation DAILY #60 ea 12/01/24 62.5 mcg-vilant 25 mcg inhalat.powder (Trelegy Ellipta) ondansetron HCl 8 mg tablet 8 mg PO DIRECTED PRN Nausea #60 12/01/24 tabs pantoprazole 40 mg tablet,delayed 40 mg PO DAILY #90 tabs 12/01/24 release Results & Data (ED) Vital Signs Vital Signs - 24 hr 02/12/25 17:53 02/12/25 18:12 02/12/25 18:41 Temperature 36.8 C Temperature Source Temporal Artery Scan Pulse Rate 104 H 109 H Pulse Rate [Apical] 97 H Respiratory Rate 18 16 Respiratory Effort / Characteristics Non-Labored Spontaneous Blood Pressure 138/86 Blood Pressure [Right Arm] 152/86 H Blood Pressure Mean 103 Blood Pressure Mean [Right Arm] 108 Blood Pressure Position Sitting Pulse Oximetry 96 93 Oxygen Delivery Method Room Air Room Air Sepsis Recent Fever Within 48 Hours No Sepsis New/Unexplained Change in Mental Status N/A Sepsis Action Taken by Nursing No Action Required 02/12/25 18:41 Temperature Temperature Source Pulse Rate 97 H Pulse Rate [Apical] Respiratory Rate 16 Respiratory Effort / Characteristics Blood Pressure Blood Pressure [Right Arm] Blood Pressure Mean Blood Pressure Mean [Right Arm] Blood Pressure Position Pulse Oximetry 93 Oxygen Delivery Method Room Air Sepsis Recent Fever Within 48 Hours Sepsis New/Unexplained Change in Mental Status Sepsis Action Taken by Nursing Laboratory Data 02/12/25 18:10 02/12/25 18:10 Lab Results 02/12/25 Range/Units 18:10 WBC 9.57 (4.8-10.8) K/ul RBC 4.23 L (4.70-6.10) M/uL Hgb 14.1 (14.0-18.0) g/dl Hct 38.6 L (42.0-52.0) % MCV 91.3 (80.0-100.0) fL MCH 33.3 (25.0-34.0) pg MCHC 36.5 H (32.0-36.0) g/dL RDW Std Deviation 42.0 (36.4-46.3) fL RDW Coeff of Yaima 12.8 (11.5-14.5) % Plt Count 304 (130-400) K/uL MPV 9.0 L (9.4-12.4) fL Immature Gran % (Auto) 0.6 % Neut % (Auto) 87.8 % Lymph % (Auto) 7.4 % [place] % (Auto) 4.1 % Eos % (Auto) 0.0 % Baso % (Auto) 0.1 % Neut # (Auto) 8.40 H (1.40-6.50) K/uL Lymph # (Auto) 0.71 L (1.20-3.40) K/uL [place] # (Auto) 0.39 (0.11-0.59) K/uL Eos # (Auto) 0.00 (0.00-0.50) K/uL Baso # (Auto) 0.01 (0.00-0.20) K/uL Immature Gran # (Auto) 0.06 (0.01-0.20) K/uL PT 12.0 (9.0-12.0) Seconds INR 1.1 (0.9-1.1) Sodium 115 L* (136-145) mmol/L Potassium 4.5 (3.5-5.1) mmol/L Chloride 84 L (98-107) mmol/L Carbon Dioxide 28 (21-32) mmol/L Anion Gap 3 (3-11) BUN 7 (6-23) mg/dl Creatinine 0.87 (0.6-1.4) mg/dl Est Cr Clr Drug Dosing Not Reportable eGFR 93.99 BUN/Creatinine Ratio 8.0 L (10-20) Glucose 156 H (70-99(Fasting)) mg/dl Osmolality 244 L (280-300) mOsm/kg Lactate 2.4 H* (0.4-2.0) mmol/L Calcium 9.7 (8.6-10.3) mg/dl Magnesium 1.9 (1.7-2.4) mg/dl Total Bilirubin 0.8 (0.2-1.0) mg/dl AST 114 H (13-39) U/L ALT 75 H (7-52) U/L Alkaline Phosphatase 568 H (34-104) U/L Troponin I High Sens 11.5 (0-20) pg/ml Total Protein 7.4 (6.0-8.3) gm/dl Albumin 3.8 (3.4-5.0) gm/dl Globulin 3.6 (2.5-4.0) gm/dl Albumin/Globulin Ratio 1.1 (0.9-2) TSH 0.866 (0.300-4.500) uIu/ml Administered Medications Sodium Chloride (Nss) 1,000 mls @ 999 mls/hr IV .Q1H1M ONE Stop: 04/25/25 19:45 Last Admin: 02/12/25 19:04 Dose: 999 mls/hr Documented By: GIORGIO Discharge Plan Visit Data Chief Complaint: Abnormal Labs/Diagnostic Testing Stated Complaint: SODIUM DEFIENCY ED Provider: Radha Mcnally Discharge Problem: Acute hyponatremia, Generalized weakness, Elevated lactic acid level, Transaminitis, Ambulatory dysfunction, Hypo-osmolality and hyponatremia Forms Stand Alone Forms: My [facility] Prescriptions Prescriptions: No Action ezetimibe 10 mg tablet 10 mg PO DAILY Qty: 90 3RF atorvastatin 80 mg tablet 80 mg PO HS Qty: 90 3RF losartan 50 mg tablet 50 mg PO DAILY Qty: 90 3RF potassium chloride [Klor-Con 10] 10 mEq tablet extended release 10 meq PO BID Qty: 180 3RF metoprolol succinate 25 mg tablet extended release 24 hr 25 mg PO HS Qty: 90 3RF cilostazol 100 mg tablet 100 mg PO BID Qty: 180 3RF fentanyl 75 mcg/hr patch 72 hour 1 patch transdermal Q72H oxycodone 10 mg tablet 10 mg PO Q6H PRN (Reason: pain) nicotine 21 mg/24 hr patch 24 hour 1 patch transdermal Q24H Qty: 28 3RF multivitamin Tablet 1 tab PO DAILY dexamethasone 1 mg tablet 1 mg PO DAILY PRN (Reason: colitis flare) Qty: 60 1RF Trelegy Ellipta 200-62.5-25 mcg blister with device 1 inh inhalation DAILY Qty: 60 11RF pantoprazole 40 mg tablet,delayed release (DR/EC) 40 mg PO DAILY Qty: 90 3RF ondansetron HCl 8 mg tablet 8 mg PO DIRECTED PRN (Reason: Nausea) Qty: 60 11RF temazepam 30 mg capsule 30 mg PO HS aspirin [Johnathan Low Dose Aspirin] 81 mg Tablet,Delayed Release (Dr/Ec) 81 mg PO QAM ibuprofen [IBU-200] 200 mg Tablet 200 mg PO Q6H PRN (Reason: Pain) Referrals Referrals: Zhane Walsh MD [Primary Care Provider] -
[2025-02-12 18:40] LABS: Alanine Aminotransferase 75 U/L (7-52); Albumin Globulin Ratio 1.1 (0.9-2); Albumin Level 3.8 gm/dl (3.4-5.0); Alkaline Phosphatase 568 U/L (34-104); Anion Gap 3 (3-11); Aspartate Aminotransferase 114 U/L (13-39); Bilirubin,Total 0.8 mg/dl (0.2-1.0); Blood Urea Nitrogen 7 mg/dl (6-23); Calcium 9.7 mg/dl (8.6-10.3); Carbon Dioxide 28 mmol/L (21-32); Chloride 84 mmol/L (98-107); Globulin 3.6 gm/dl (2.5-4.0); Glucose 156 mg/dl (70-99(Fasting)); Magnesium 1.9 mg/dl (1.7-2.4); Potassium 4.5 mmol/L (3.5-5.1); Sodium 115 mmol/L (136-145); Total Protein 7.4 gm/dl (6.0-8.3)
[2025-02-12 18:56] LABS: INR 1.1 (0.9-1.1)
[2025-02-12 19:01] LABS: Thyroid Stimulating Hormone 0.866 uIu/ml (0.300-4.500); Troponin I High Sensitivity 11.5 pg/ml (0-20)
[2025-02-12] MEDS: SODIUM CHLORIDE 0.9% 1,000 ML IV ONE (19:04)
--- NOTE | 2025-02-12 19:29 | XRay Report ---
Clinical History: Weakness Technique: A frontal view of the chest was obtained Comparison is made to the prior examination dated 05/28/2019 Findings: There is new diffuse interstitial prominence, concerning for pulmonary edema. The heart size is within normal limits. No pleural effusion or pneumothorax is seen. There is mild elevation of the left hemidiaphragm No fracture is noted. There is an unchanged left chest wall port with its tip in the SVC Impression: Apparent new pulmonary edema Electronically signed by Chas Novak 02-12-2025 7:28 PM
--- NOTE | 2025-02-12 20:51 | History & Physical Report ---
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 Not current on chemotherapy, unclear if he is planning to pursue aggressive intervention #Transaminitis Acute on chronic Recent biopsy of liver PET scan shows innumerable mets Daily CMP #Cancer Pain Continue Oxycodone and Fenanyl Patch #Ambulatory Dysfunction/Weakness 2/2 hyponatremia vs decline in setting of significant metastatic disease PT/OT #CKD-III Cr unremarkable at admission Follow kidney function #COPD Continue Trelegy #CAD/HTN/HLD/PAD Continue atorvastatin, ASA, losartan, Zetia, metoprolol #GERD Continue Protonix FENGI: heart healthy, fluid restriction 1L Code status: DNR/DNI DVT prophylaxis: Lovenox Isolation: none Disposition: PCU History of Present Illness Primary Care Provider: Zhane Walsh MD 69 yo male PMHx Stage IV lung CA with skeletal liver and mediastinal mets with recent biopsy of 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 For the last week he has been experiencing malaise, weakness, fatigue, vague abdominal pain, and decreased urination. He undergone various treatments for lung cancer since approximately 2019. Currently he endorses fatigue and vague abdominal pain. BARROS, CP, SOB, N/V/D, changes in urination. ED Course 1L NSS Labs reveal: Na 115, elevated lactate, transaminitis, CEA 17.2, CXR with new pulmonary edema Allergies Allergy/AdvReac Type Severity Reaction Status Date / Time latex Allergy Intermediate RASH Verified 02/12/25 18:54 Penicillins Allergy Intermediate MOUTH LIPS Verified 02/12/25 18:54 AND TONGUE SWELLING bee venom protein (honey bee) AdvReac Intermediate SWELLING, Verified 02/12/25 18:54 THROAT SWELLING acetaminophen AdvReac Unknown USES Verified 02/12/25 18:55 SPARINGLY D/T LIVER CA Home Medications Medication Instructions Recorded Confirmed Type aspirin 81 mg tablet,delayed 81 mg PO QAM 05/27/19 02/12/25 History release (Johnathan Low Dose Aspirin) fentanyl 75 mcg/hr transdermal 1 patch transdermal Q72H 11/16/22 02/12/25 History patch oxycodone 10 mg tablet 10 mg PO Q6H PRN pain 11/16/22 02/12/25 History multivitamin 1 tab PO DAILY 08/22/23 02/12/25 History ibuprofen 200 mg tablet (IBU-200) 200 mg PO Q6H PRN Pain 08/24/23 02/12/25 History nicotine 21 mg/24 hr daily 1 patch transdermal Q24H #28 ea 03/23/24 02/12/25 Rx transdermal patch ezetimibe 10 mg tablet 10 mg PO DAILY #90 tabs 03/25/24 02/12/25 Rx atorvastatin 80 mg tablet 80 mg PO HS #90 tabs 04/22/24 02/12/25 Rx losartan 50 mg tablet 50 mg PO DAILY #90 tabs 04/22/24 02/12/25 Rx potassium chloride 10 mEq 10 meq PO BID #180 tabs 05/18/24 02/12/25 Rx tablet,extended release (Klor-Con) dexamethasone 1 mg tablet 1 mg PO DAILY PRN colitis flare 05/26/24 02/12/25 Rx #60 tabs cilostazol 100 mg tablet 100 mg PO BID #180 tabs 07/29/24 02/12/25 Rx metoprolol succinate 25 mg 25 mg PO HS #90 tabs 07/29/24 02/12/25 Rx tablet,extended release 24 hr temazepam 30 mg capsule 30 mg PO HS 10/30/24 02/12/25 History fluticasone fur. 200 mcg-umeclid 1 inh inhalation DAILY #60 ea 12/01/24 02/12/25 Rx 62.5 mcg-vilant 25 mcg inhalat.powder (Trelegy Ellipta) ondansetron HCl 8 mg tablet 8 mg PO DIRECTED PRN Nausea #60 12/01/24 02/12/25 Rx tabs pantoprazole 40 mg tablet,delayed 40 mg PO DAILY #90 tabs 12/01/24 02/12/25 Rx release Past Med/Surg History Problem List Hepatitis B Hypo-osmolality and hyponatremia (Acute) Ambulatory dysfunction (Acute) Transaminitis (Acute) Elevated lactic acid level (Acute) Generalized weakness (Acute) Acute hyponatremia (Acute) Hypersomnia LAD (lymphadenopathy), mediastinal Chronic bronchitis Multiple pulmonary nodules Abnormal positron emission tomography (PET) scan Oral thrush 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 Heavy alcohol use Cigarette nicotine dependence Lymphocytic colitis Port-A-Cath in place Hx of carotid artery stenosis Chronic hyponatremia Stage 3b chronic kidney disease Vitamin D deficiency Proteinuria PAD (peripheral artery disease) Claudication of left lower extremity Hypertension (Acute) Hyperlipidemia Left hand weakness CAD (coronary artery disease) BMS x1 to mid RCA (2012) Medical History Metabolic acidosis CVA (cerebral vascular accident) Multiple scattered punctate foci of restricted diffusion within the right posterior frontal lobe, right parietal lobe, and right occipital lobe consistent with acute infarcts Maintenance chemotherapy Carotid artery stenosis Focal high-grade stenosis in the proximal right internal carotid artery approximately 5 mm distal to the bifurcation with approximately 90% focal stenosis History of hepatitis B remote hx; "no problems since" per RN phone interview- no further details Hyperlipidemia Hypertension Surgical History H/O carotid endarterectomy right side History of lung surgery right thoracoscopy and bronchoscopy 12/03/18 History of bronchoscopy WITH BIOPSY History of tonsillectomy History of biopsy T9 BIOPSY= 10/13/18= GRADE 2 VIEW, MAC 4, ETT 7.5 AT [facility] History of colonoscopy H/O heart artery stent MID RCA BMS X 1 (2012) Family History Mother , age 85 with heart issues Old age Heart disease Myocardial infarction Father , age 85 with COPD Old age COPD (chronic obstructive pulmonary disease) Brother No problems noted. Brother , still born No problems noted. Sister No problems noted. Sister No problems noted. Daughter No problems noted. Daughter No problems noted. Son Drug addiction Uncle , 46 Colon cancer Other No family history of adverse response to anesthesia Denies family history of Ovarian cancer Prostate cancer Breast cancer Social History Smoking Status: Never smoker Tobacco Type: Cigarettes Age Started Using Tobacco: 17; Age Quit Using Tobacco: 39; packs per day: 0.75; Cigarettes Per Day: 15-20; Second Hand Exposure: Yes; Do You Dip or Chew Tobacco: No; Hx Alcohol Use: Yes (4 beers daily ) Alcohol type: beer Alcohol Intake Frequency Comment: 3-4 beers per day on average. Hx Substance Use: No Preferred Language: Lebanese Communication Ability: Effective Visual Impairment: No Limitations Hearing Ability: Normal Sign Poster Required: No Beliefs That Will Affect Care: None marital status: / Current Living Situation: Family Current Living Situation Comment: lives with son current occupational status: retired and disabled current occupation: Worked at [employer]-exposure to organic solvents, lead,etc other: Disabled since September of 2018 Feels Safe at Home: Yes Childhood Exposure to Second-Hand Smoke: Yes Dental Care, Regularly: Yes Physical Activity Frequency: 1-2 Times per Week Seatbelt Use: always Sunscreen Use: Yes Assistive Devices: None Review of Systems Review of Systems: reviewed, per HPI Physical Exam Physical Exam: Constitutional: well-appearing, no acute distress HEENT: NCAT, no conjunctival injection CV: no murmur appreciated, extremities well-perfused, no LE edema Resp: CTABL, no wheezes/rales/rhonchi appreciated, no increased work of breathing GI: soft, nondistended, mildly TTP MSK: no gross deformities appreciated Skin: warm, dry, no rash appreciated Neuro: alert, oriented, no focal neurologic deficit appreciated Results & Data Results & Data Vital Signs (Past 12 Hours) Vital Signs Temp Pulse Pulse Resp BP BP Pulse Ox 02/12/25 20:00 82 16 175/94 H 94 02/12/25 18:41 97 H 16 93 02/12/25 18:41 97 H 16 152/86 H 93 02/12/25 18:12 109 H 02/12/25 17:53 36.8 C 104 H 18 138/86 96 O2 Del Method 02/12/25 20:00 Room Air 02/12/25 18:41 Room Air 02/12/25 18:41 Room Air 02/12/25 18:12 02/12/25 17:53 Room Air Laboratory Results Laboratory Results WBC 9.57 K/ul (4.8-10.8) 02/12/25 18:10 RBC 4.23 M/uL (4.70-6.10) L 02/12/25 18:10 Hgb 14.1 g/dl (14.0-18.0) 02/12/25 18:10 Hct 38.6 % (42.0-52.0) L 02/12/25 18:10 MCV 91.3 fL (80.0-100.0) 02/12/25 18:10 MCH 33.3 pg (25.0-34.0) 02/12/25 18:10 MCHC 36.5 g/dL (32.0-36.0) H 02/12/25 18:10 RDW Std Deviation 42.0 fL (36.4-46.3) 02/12/25 18:10 RDW Coeff of Yaima 12.8 % (11.5-14.5) 02/12/25 18:10 Plt Count 304 K/uL (130-400) 02/12/25 18:10 MPV 9.0 fL (9.4-12.4) L 02/12/25 18:10 Immature Gran % (Auto) 0.6 % 02/12/25 18:10 Neut % (Auto) 87.8 % 02/12/25 18:10 Lymph % (Auto) 7.4 % 02/12/25 18:10 [place] % (Auto) 4.1 % 02/12/25 18:10 Eos % (Auto) 0.0 % 02/12/25 18:10 Baso % (Auto) 0.1 % 02/12/25 18:10 Neut # (Auto) 8.40 K/uL (1.40-6.50) H 02/12/25 18:10 Lymph # (Auto) 0.71 K/uL (1.20-3.40) L 02/12/25 18:10 [place] # (Auto) 0.39 K/uL (0.11-0.59) 02/12/25 18:10 Eos # (Auto) 0.00 K/uL (0.00-0.50) 02/12/25 18:10 Baso # (Auto) 0.01 K/uL (0.00-0.20) 02/12/25 18:10 Immature Gran # (Auto) 0.06 K/uL (0.01-0.20) 02/12/25 18:10 PT 12.0 Seconds (9.0-12.0) 02/12/25 18:10 INR 1.1 (0.9-1.1) 02/12/25 18:10 Sodium 117 mmol/L (136-145) L* 02/12/25 20: Potassium 4.5 mmol/L (3.5-5.1) 02/12/25 20: Chloride 89 mmol/L (98-107) L 02/12/25: Carbon Dioxide 26 mmol/L (21-32) 02/12/25 20:27 Anion Gap 2 (3-11) L 02/12/25 20:27 BUN 5 mg/dl (6-23) L 02/12/25 20: Creatinine 0.73 mg/dl (0.6-1.4) 02/12/25 20:27 Est Cr Clr Drug Dosing 96.8 ml/min 02/12/25 20:27 eGFR 99.10 02/12/25 20:27 BUN/Creatinine Ratio 6.8 (10-20) L 02/12/25 20: Glucose 125 mg/dl (70-99(Fasting)) H 02/12/25 20:27 Osmolality 244 mOsm/kg (280-300) L 02/12/25 18:10 Lactate 1.5 mmol/L (0.4-2.0) 02/12/25 20: Calcium 9.0 mg/dl (8.6-10.3) 02/12/25 20:27 Magnesium 1.9 mg/dl (1.7-2.4) 02/12/25 18:10 Total Bilirubin 0.8 mg/dl (0.2-1.0) 02/12/25 18:10 AST 114 U/L (13-39) H 02/12/25 18:10 ALT 75 U/L (7-52) H 02/12/25 18:10 Alkaline Phosphatase 568 U/L (34-104) H 02/12/25 18:10 Troponin I High Sens 11.5 pg/ml (0-20) 02/12/25 18:10 Total Protein 7.4 gm/dl (6.0-8.3) 02/12/25 18:10 Albumin 3.8 gm/dl (3.4-5.0) 02/12/25 18:10 Globulin 3.6 gm/dl (2.5-4.0) 02/12/25 18:10 Albumin/Globulin Ratio 1.1 (0.9-2) 02/12/25 18:10 TSH 0.866 uIu/ml (0.300-4.500) 02/12/25 18:10 Impressions Chest X-Ray 02/12/25 17:57 Clinical History: Weakness Technique: A frontal view of the chest was obtained Comparison is made to the prior examination dated 05/28/2019 Findings: There is new diffuse interstitial prominence, concerning for pulmonary edema. The heart size is within normal limits. No pleural effusion or pneumothorax is seen. There is mild elevation of the left hemidiaphragm No fracture is noted. There is an unchanged left chest wall port with its tip in the SVC Impression: Apparent new pulmonary edema Electronically signed by Chas Novak 02-12-2025 7:28 PM Code Status & VTE Plan VTE Prophylaxis Plan VTE Prophylaxis will be ordered: Yes Supervising Physician Co-Signing Physician Notes Patient seen and examined, chart reviewed, case discussed with Dr. Mackey and I agree with the assessment and plan as above. In brief, patient is a 69yo male with history of SCLCA with metastatic disease to liver and bone presenting with symptomatic hyponatremia with Ew=636. (Last Wa=426 on 12/31/24). Symptoms ongoing x 1 week. 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 Walker [facility] -Remainder as above Resident Activity Tracking Resident Involvement: Resident Care Provided Care Provided: Adult Hospital Medicine (7) COPD (chronic obstructive pulmonary disease) with emphysema Emphysema type: unspecified Qualified Code(s): J43.9 - Emphysema, unspecified (11) Hypertension Hypertension type: unspecified Qualified Code(s): I10 - Essential (primary) hypertension (12) Hyperlipidemia Hyperlipidemia type: unspecified Qualified Code(s): E78.5 - Hyperlipidemia, unspecified (13) CAD (coronary artery disease) Associated angina: without angina Coronary Disease-Associated Artery/Lesion type: [place] artery [place] vs. transplanted heart: [place] heart Qualified Code(s): I25.10 - Atherosclerotic heart disease of [place] coronary artery without angina pectoris
[2025-02-12 21:06] LABS: BUN Creatinine Ratio 6.8 (10-20); Creatinine Clr Calc Pharmacy 96.8 ml/min; Potassium 4.5 mmol/L (3.5-5.1)
[2025-02-12] MEDS ORDERED: oxyCODONE HCL IR 5 MG TAB (IMMEDIATE RELEASE) PO PRN (21:23)
[2025-02-12] MEDS ORDERED: ALUMINUM/MAGNESIUM SUSP 30 ML UDC PO PRN (21:23)
[2025-02-12] MEDS ORDERED: ACETAMINOPHEN 500 MG TAB PO PRN (21:23)
[2025-02-12] MEDS ORDERED: POLYETHYLENE (MIRALAX) 17 GM PACK PO PRN (21:23)
[2025-02-12] MEDS ORDERED: IBUPROFEN 200 MG TAB PO PRN ×2 (21:23→21:35)
--- NOTE | 2025-02-12 21:51 | Billing Data ---
Date of Service February 12, 2025 Coding Level of Care Code 25836 INT INP/OBS CARE
[2025-02-12] MEDS: METOPROLOL SUCC 25MG EXT REL TAB PO SCH (22:26)
[2025-02-12] MEDS: ATORVASTATIN 40 MG TAB PO SCH (22:27)
[2025-02-12] MEDS: ENOXAPARIN INJ 40 MG/0.4 ML SYR SQ SCH (22:27)
[2025-02-12] MEDS: NICOTINE 21 MG/24 HR TDSY TD SCH (22:31)
[2025-02-12] MEDS: POTASSIUM CHLORIDE 10 MEQ TABCR PO SCH (22:45)
[2025-02-12] MEDS: TEMAZEPAM 15 MG CAPSULE PO SCH (22:45)
[2025-02-12] MEDS: cilostazoL 100 MG TAB PO SCH (22:53)
[2025-02-12] MEDS: SODIUM CHLORIDE 3 % 100 ML IV ONE (23:00)
[2025-02-12] MEDS: CHECK fentaNYL PATCH PLACEMENT SCH (23:21)
[2025-02-12] MEDS: STAT IV/IM STA (23:33)
[2025-02-13 01:30] LABS: BUN Creatinine Ratio 6.8 (10-20); Creatinine Clr Calc Pharmacy 96.8 ml/min; Potassium 4.6 mmol/L (3.5-5.1)
[2025-02-13 07:49] LABS: Basophils # (auto) 0.01 K/uL (0.00-0.20); Basophils % (auto) 0.1 %; Eosinophils # (auto) 0.02 K/uL (0.00-0.50); Eosinophils % (auto) 0.2 %; Hematocrit (blood only) 37.5 % (42.0-52.0); Hemoglobin 13.2 g/dl (14.0-18.0); Lymphocytes # (auto) 1.57 K/uL (1.20-3.40); Lymphocytes % (auto) 15.3 %; Mean Corpuscular Hemoglobin 32.8 pg (25.0-34.0); Mean Corpuscular Hgb Conc 35.2 g/dL (32.0-36.0); Mean Corpuscular Volume 93.3 fL (80.0-100.0); Mean Platelet Volume 9.6 fL (9.4-12.4); Monocytes # (auto) 1.14 K/uL (0.11-0.59); Monocytes % (auto) 11.1 %; Neutrophils # (auto) 7.44 K/uL (1.40-6.50); Neutrophils % (auto) 72.3 %; Platelet Count 314 K/uL (130-400); RDW Standard Deviation 44.3 fL (36.4-46.3); Red Blood Count 4.02 M/uL (4.70-6.10); White Blood Count 10.28 K/ul (4.8-10.8)
[2025-02-13 08:14] LABS: Appearance Urine Clear (Clear); Bilirubin Urine Negative (Negative); Blood Urine Negative (Negative); Color Urine Yellow; Glucose Urine UA Negative (Negative); Ketones Urine Trace (Negative); Leukocyte Esterase Urine Negative (Negative); Nitrite Urine Negative (Negative); Protein Urine Negative (Negative); Specific Gravity Urine 1.008 (1.000-1.030); Urobilinogen Urine Negative (Negative); pH Urine 7.5 (4.5-7.5)
[2025-02-13 08:24] LABS: Albumin Globulin Ratio 1.1 (0.9-2); Albumin Level 3.4 gm/dl (3.4-5.0); BUN Creatinine Ratio 7.6 (10-20); Bilirubin,Total 0.8 mg/dl (0.2-1.0); Calcium 9.4 mg/dl (8.6-10.3); Creatinine Clr Calc Pharmacy 89.5 ml/min; Globulin 3.1 gm/dl (2.5-4.0); Potassium 4.5 mmol/L (3.5-5.1); Total Protein 6.5 gm/dl (6.0-8.3)
[2025-02-13 09:27] LABS: BUN Creatinine Ratio 8.2 (10-20); Calcium 9.3 mg/dl (8.6-10.3); Creatinine Clr Calc Pharmacy 83.2 ml/min; Potassium 4.7 mmol/L (3.5-5.1)
[2025-02-13] MEDS: fentaNYL 75 MCG/HR TDSY TD SCH (09:38)
[2025-02-13] MEDS: oxyCODONE HCL IR 5 MG TAB (IMMEDIATE RELEASE) PO PRN (09:41)
[2025-02-13] MEDS: EZETIMIBE 10 MG TAB PO SCH (09:43)
[2025-02-13] MEDS: ASPIRIN 81 MG ECTAB PO SCH (09:43)
[2025-02-13] MEDS: SODIUM CHLORIDE 1 GM TABLET PO SCH ×2 (09:43→20:27)
[2025-02-13] MEDS: FLUTICASONE FUROATE 200MCG 14 PUFFS/INHALER INH SCH (09:44)
[2025-02-13] MEDS: UMECLIDINIUM/VILANTEROL 62.5/25MCG 7 PUFFS/INHALER INH SCH (09:45)
[2025-02-13] MEDS: MULTIVITAMIN TAB PO SCH (09:45)
[2025-02-13] MEDS: LOSARTAN POTASSIUM 50 MG TAB PO SCH (09:45)
[2025-02-13] MEDS: PANTOprazole 40 MG TAB PO SCH (09:45)
--- NOTE | 2025-02-13 11:36 | Hospitalist Progress Note ---
Date of Service February 13, 2025 Assessment & Plan (1) Acute hyponatremia: (2) Generalized weakness: (3) Elevated lactic acid level: (4) Transaminitis: (5) Ambulatory dysfunction: (6) LAD (lymphadenopathy), mediastinal: (7) COPD (chronic obstructive pulmonary disease) with emphysema: (8) Adenocarcinoma of lung: (9) Port-A-Cath in place: (10) Stage 3b chronic kidney disease: (11) Hypertension: (12) Hyperlipidemia: (13) CAD (coronary artery disease): (14) Hepatitis B: Plan 69 yo male PMHx Stage IV lung CA with skeletal liver and mediastinal mets with 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 Not current on chemotherapy, unclear if he is planning to pursue aggressive intervention #Transaminitis Acute on chronic Recent biopsy of liver PET scan shows innumerable mets Daily CMP #Cancer Pain Continue Oxycodone and Fenanyl Patch #Ambulatory Dysfunction/Weakness 2/2 hyponatremia vs decline in setting of significant metastatic disease PT/OT #CKD-III Cr unremarkable at admission Follow kidney function #COPD Continue Trelegy #CAD/HTN/HLD/PAD Continue atorvastatin, ASA, losartan, Zetia, metoprolol #GERD Continue Protonix FENGI: heart healthy, fluid restriction 1L Code status: DNR/DNI DVT prophylaxis: Lovenox Isolation: none Disposition: PCU Admission and Anticipated Discharge Date Admission Date: February 12, 2025 Supervising Physician Co-Signing Physician Notes I personally examined the patient and verified all green points of history and exam, discussed case, and agree with decision making with Dr Trotter feeling ok discussed low Na, pathophys, treatment vitals noted nad heent nc at mmm breathing unlabored no accessory muscles good effort skin no rashes no pallor or icterus hyponatremia - likely SiADH from cancer (also drinking ~6pk up till about 2wks ago probably causing some dilution/polydipsia and poor solute intake) -fluid restrict -salt tabs -if not improving then may need tolvaptan DVT proph - lovenox Subjective Patient is seen resting comfortably at bedside this morning. Patient without acute pain or concerns. Patient denies chest pain, palpitations, SOB, abdominal pain, nausea, vomiting, fevers, and chills. Patient remains afebrile and hemodynamically stable. Physical Exam Physical Exam: General: patient resting comfortably, NAD, non-toxic in appearance, answers questions appropriately. Skin: warm, dry, intact HEENT: NC/AT, anicteric sclera, conjunctiva without injection, moist mucus membranes. Heart: +S1/S2, regular, no m/r/g Lungs: equal air entry bilaterally, no rales/rhonchi/wheezes Abd: +BS, soft, NT/ND Ext: warm, no clubbing/cyanosis or edema Neuro: nonfocal, speech intact, no facial droop, moving all extremities. Results & Data Results & Data Vital Signs (Past 12 Hours) Vital Signs Temp Pulse Pulse Resp BP Pulse Ox O2 Del Method 02/13/25 07:48 81 02/13/25 07:44 36.5 C 83 18 180/95 H 94 Room Air 02/13/25 02:57 36.6 C 81 18 148/81 H 96 Room Air Resident Activity Tracking Resident Involvement: Resident Care Provided Care Provided: Adult Hospital Medicine (7) COPD (chronic obstructive pulmonary disease) with emphysema Emphysema type: unspecified Qualified Code(s): J43.9 - Emphysema, unspecified (11) Hypertension Hypertension type: unspecified Qualified Code(s): I10 - Essential (primary) hypertension (12) Hyperlipidemia Hyperlipidemia type: unspecified Qualified Code(s): E78.5 - Hyperlipidemia, unspecified (13) CAD (coronary artery disease) Associated angina: without angina Coronary Disease-Associated Artery/Lesion type: [place] artery [place] vs. transplanted heart: [place] heart Qualified Cod e(s): I25.10 - Atherosclerotic heart disease of [place] coronary artery without angina pectoris
[2025-02-13 13:36] LABS: BUN Creatinine Ratio 8.2 (10-20); Calcium 9.3 mg/dl (8.6-10.3); Creatinine Clr Calc Pharmacy 83.2 ml/min; Potassium 4.4 mmol/L (3.5-5.1)
--- NOTE | 2025-02-13 14:48 | Billing Data ---
Date of Service February 13, 2025 Coding Level of Care Code 91672 SUB INP/OBS CARE
[2025-02-13 17:53] LABS: BUN Creatinine Ratio 6.7 (10-20); Calcium 9.2 mg/dl (8.6-10.3); Creatinine Clr Calc Pharmacy 79.4 ml/min; Potassium 4.6 mmol/L (3.5-5.1)
[2025-02-13] MEDS: MELATONIN 3 MG TAB PO PRN (20:26)
[2025-02-13] MEDS ORDERED: SODIUM CHLORIDE 1 GM TABLET PO SCH (21:00)
[2025-02-13 21:31] LABS: BUN Creatinine Ratio 7.4 (10-20); Calcium 9.1 mg/dl (8.6-10.3); Creatinine Clr Calc Pharmacy 87.3 ml/min; Potassium 4.5 mmol/L (3.5-5.1)
[2025-02-13] MEDS: ONDANSETRON INJ 2 MG/ML 2 ML VIAL IV PRN (22:22)
[2025-02-14 01:29] LABS: BUN Creatinine Ratio 7.5 (10-20); Creatinine Clr Calc Pharmacy 88.4 ml/min; Potassium 4.5 mmol/L (3.5-5.1)
[2025-02-14 07:16] LABS: Basophils # (auto) 0.02 K/uL (0.00-0.20); Basophils % (auto) 0.2 %; Eosinophils # (auto) 0.09 K/uL (0.00-0.50); Hematocrit (blood only) 34.7 % (42.0-52.0); Hemoglobin 12.3 g/dl (14.0-18.0); Immature Granulocytes # (auto) 0.06 K/uL (0.01-0.20); Immature Granulocytes % (auto) 0.6 %; Lymphocytes # (auto) 1.54 K/uL (1.20-3.40); Lymphocytes % (auto) 16.5 %; Mean Corpuscular Hemoglobin 33.3 pg (25.0-34.0); Mean Corpuscular Hgb Conc 35.4 g/dL (32.0-36.0); Mean Platelet Volume 9.3 fL (9.4-12.4); Monocytes # (auto) 1.04 K/uL (0.11-0.59); Monocytes % (auto) 11.1 %; Neutrophils % (auto) 70.6 %; Platelet Count 297 K/uL (130-400); Red Blood Count 3.69 M/uL (4.70-6.10); White Blood Count 9.35 K/ul (4.8-10.8)
[2025-02-14 07:32] LABS: Albumin Globulin Ratio 1.2 (0.9-2); Albumin Level 3.4 gm/dl (3.4-5.0); BUN Creatinine Ratio 6.8 (10-20); Bilirubin,Total 0.6 mg/dl (0.2-1.0); Calcium 9.2 mg/dl (8.6-10.3); Creatinine Clr Calc Pharmacy 80.3 ml/min; Globulin 2.8 gm/dl (2.5-4.0); Potassium 4.8 mmol/L (3.5-5.1); Total Protein 6.2 gm/dl (6.0-8.3)
--- NOTE | 2025-02-14 08:17 | Hospitalist Progress Note ---
Date of Service February 14, 2025 Assessment & Plan (1) Acute hyponatremia: (2) Generalized weakness: (3) Elevated lactic acid level: (4) Transaminitis: (5) Ambulatory dysfunction: (6) LAD (lymphadenopathy), mediastinal: (7) COPD (chronic obstructive pulmonary disease) with emphysema: (8) Adenocarcinoma of lung: (9) Port-A-Cath in place: (10) Stage 3b chronic kidney disease: (11) Hypertension: (12) Hyperlipidemia: (13) CAD (coronary artery disease): (14) Hepatitis B: Plan 69 yo male PMHx Stage IV lung CA with skeletal liver and mediastinal mets with 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 02/20/25 and patient has meeting with oncology in [place] on 02/19 #Transaminitis Acute on chronic Recent biopsy of liver PET scan shows innumerable mets Daily CMP #Cancer Pain Continue Oxycodone and Fenanyl Patch #Ambulatory Dysfunction/Weakness / hyponatremia vs decline in setting of significant metastatic disease PT/OT #CKD-III Cr unremarkable at admission Follow kidney function #COPD Continue Trelegy #CAD/HTN/HLD/PAD Continue atorvastatin, ASA, losartan, Zetia, metoprolol #GERD Continue Protonix FENGI: heart healthy, fluid restriction 1L Code status: DNR/DNI DVT prophylaxis: Lovenox Isolation: none Disposition: PCU Admission and Anticipated Discharge Date Admission Date: February 12, 2025 Supervising Physician Co-Signing Physician Notes I personally examined the patient and verified all green points of history and exam, discussed case, and agree with decision making with Dr Trotter nauseated earlier. Still no appetite but nausea is better. Notes that he feels nauseated at home fairly frequently as well. Bowel movements maybe every other day every 3 days. 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 nausea -?constipation (miralax) vs liver mets/overall situation (increase protonix to BID, add BID pepcid, add AC [place] (help w nausea and constipation) DVT proph - lovenox Subjective Patient is seen resting comfortably at bedside this morning. Patient endorses ongoing nausea and states that the Zofran helps but typically his nausea comes back before his next dose. Patient endorses 1 episode of emesis after dinner last night. Patient denies chest pain, palpitations, SOB, abdominal pain, fevers, and chills. Patient remains afebrile and hemodynamically stable. Physical Exam Physical Exam: General: patient resting comfortably, NAD, non-toxic in appearance, answers questions appropriately. Skin: warm, dry, intact HEENT: NC/AT, anicteric sclera, conjunctiva without injection, moist mucus membranes. Heart: +S1/S2, regular, no m/r/g Lungs: equal air entry bilaterally, no rales/rhonchi/wheezes Abd: +BS, soft, NT/ND Ext: warm, no clubbing/cyanosis or edema Neuro: nonfocal, speech intact, no facial droop, moving all extremities. Results & Data Results & Data Vital Signs (Past 12 Hours) Vital Signs Temp Pulse Pulse Resp BP Pulse Ox O2 Del Method 02/14/25 08:09 36.4 C L 76 18 151/70 H 97 Room Air 02/14/25 07:03 70 02/14/25 03:01 36.5 C 72 18 134/77 95 Room Air 02/13/25 22:58 36.6 C 86 18 138/79 95 Room Air 02/13/25 22:43 Room Air 02/13/25 21:59 79 Resident Activity Tracking Resident Involvement: Resident Care Provided Care Provided: Adult Hospital Medicine (7) COPD (chronic obstructive pulmonary disease) with emphysema Emphysema type: unspecified Qualified Code(s): J43.9 - Emphysema, unspecified (11) Hypertension Hypertension type: unspecified Qualified Code(s): I10 - Essential (primary) hypertension (12) Hyperlipidemia Hyperlipidemia type: unspecified Qualified Code(s): E78.5 - Hyperlipidemia, unspecified (13) CAD (coronary artery disease) Associated angina: without angina Coronary Disease-Associated Artery/Lesion type: [place] artery [place] vs. transplanted heart: [place] heart Qualified Code(s): I25.10 - Atherosclerotic heart disease of [place] coronary artery without angina pectoris
[2025-02-14 09:30] LABS: BUN Creatinine Ratio 8.4 (10-20); Calcium 9.2 mg/dl (8.6-10.3); Creatinine Clr Calc Pharmacy 85.2 ml/min; Potassium 4.6 mmol/L (3.5-5.1)
[2025-02-14] MEDS: PROCHLORPERAZINE MALEATE 10 MG TAB PO PRN (10:49)
--- NOTE | 2025-02-14 12:58 | Electrocardiogram Report ---
Test Reason : Blood Pressure : */* mmHG Vent. Rate : 101 BPM Atrial Rate : 101 BPM P-R Int : 172 ms QRS Dur : 80 ms QT Int : 356 ms P-R-T Axes : 29 12 54 degrees QTcB Int : 461 ms Sinus tachycardia Otherwise normal ECG When compared with ECG of 24-Aug-2023 05:32, No significant change was found Confirmed by Jasiel Huertas ([id number]) on 02/14/2025 12:57:41 PM Referred By: Jesse Walker Confirmed By: Jasiel Huertas
[2025-02-14] MEDS: FAMOTIDINE 20 MG TAB PO SCH (13:30)
[2025-02-14] MEDS: POLYETHYLENE (MIRALAX) 17 GM PACK PO SCH (13:31)
[2025-02-14 13:34] LABS: BUN Creatinine Ratio 7.8 (10-20); Calcium 9.5 mg/dl (8.6-10.3); Creatinine Clr Calc Pharmacy 78.6 ml/min; Potassium 4.5 mmol/L (3.5-5.1)
--- NOTE | 2025-02-14 15:10 | Billing Data ---
Date of Service February 14, 2025 Coding Level of Care Code 61297 SUB INP/OBS CARE
[2025-02-14] MEDS: GADOBUTROL 30ML VIAL IV ONE (15:19)
[2025-02-14] MEDS: fentaNYL 75 MCG/HR TDSY TD SCH (16:24)
--- NOTE | 2025-02-14 16:24 | Magnetic Resonance Report ---
MRI of the brain performed with and without IV contrast History: Eval for metastatic disease Comparison: None Technique: Multiplanar T1 weighted, axial T2/FLAIR, and susceptibility images were obtained without intravenous contrast. Following intravenous gadolinium based contrast administration, axial T2 weighted, diffusion, and T1-weighted images were obtained. Findings: 9 x 7 mm rim-enhancing lesion in the periventricular white matter of the left temporal lobe, series 9 image 137. 8 x 7 mm rim-enhancing lesion at the septum pellucidum, series 9 image 149. No mass effect or intracranial hemorrhage. No midline shift. The orbits are grossly unremarkable. Moderate to marked generalized cerebral atrophy. No evidence for acute infarct. Normal intravascular flow voids. Impression: There are 2 rim-enhancing lesions in the left temporal lobe white matter and at the septum pellucidum, consistent with metastatic disease. Otherwise no acute findings. Electronically signed by Miguel Núñez 02-14-2025 4:23 PM
[2025-02-14] MEDS: ALUMINUM/MAGNESIUM SUSP 30 ML UDC PO SCH (17:13)
[2025-02-14 17:29] LABS: BUN Creatinine Ratio 7.5 (10-20); Calcium 9.2 mg/dl (8.6-10.3); Potassium 4.5 mmol/L (3.5-5.1)
[2025-02-14] MEDS: PANTOprazole 40 MG TAB PO SCH (20:29)
[2025-02-14 21:37] LABS: BUN Creatinine Ratio 7.1 (10-20); Calcium 9.2 mg/dl (8.6-10.3); Creatinine Clr Calc Pharmacy 72.1 ml/min; Potassium 4.4 mmol/L (3.5-5.1)
[2025-02-15 01:16] LABS: BUN Creatinine Ratio 7.1 (10-20); Calcium 9.3 mg/dl (8.6-10.3); Creatinine Clr Calc Pharmacy 72.1 ml/min; Potassium 4.7 mmol/L (3.5-5.1)
[2025-02-15 06:53] LABS: Basophils # (auto) 0.02 K/uL (0.00-0.20); Basophils % (auto) 0.2 %; Eosinophils # (auto) 0.07 K/uL (0.00-0.50); Eosinophils % (auto) 0.7 %; Hematocrit (blood only) 36.8 % (42.0-52.0); Hemoglobin 12.6 g/dl (14.0-18.0); Immature Granulocytes # (auto) 0.07 K/uL (0.01-0.20); Immature Granulocytes % (auto) 0.7 %; Lymphocytes # (auto) 1.63 K/uL (1.20-3.40); Lymphocytes % (auto) 16.3 %; Mean Corpuscular Hemoglobin 32.6 pg (25.0-34.0); Mean Corpuscular Hgb Conc 34.2 g/dL (32.0-36.0); Mean Corpuscular Volume 95.3 fL (80.0-100.0); Mean Platelet Volume 9.4 fL (9.4-12.4); Monocytes # (auto) 1.07 K/uL (0.11-0.59); Monocytes % (auto) 10.7 %; Neutrophils # (auto) 7.14 K/uL (1.40-6.50); Neutrophils % (auto) 71.4 %; Platelet Count 310 K/uL (130-400); RDW Coefficient of Variation 13.2 % (11.5-14.5); RDW Standard Deviation 46.2 fL (36.4-46.3); Red Blood Count 3.86 M/uL (4.70-6.10)
[2025-02-15 07:11] LABS: BUN Creatinine Ratio 7.1 (10-20); Calcium 9.4 mg/dl (8.6-10.3); Creatinine Clr Calc Pharmacy 72.1 ml/min; Potassium 4.5 mmol/L (3.5-5.1)
[2025-02-15 10:29] LABS: BUN Creatinine Ratio 7.8 (10-20); Calcium 9.5 mg/dl (8.6-10.3); Creatinine Clr Calc Pharmacy 69.3 ml/min; Potassium 4.5 mmol/L (3.5-5.1)
[2025-02-15] MEDS: MAGNESIUM HYDROXIDE SUSP 30 ML UDC PO PRN (13:17)
--- NOTE | 2025-02-15 13:23 | Hospitalist Progress Note ---
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 #Hyponatremia SIADH, probably a little bit low solute and polydipsia physiology that is waningpoor appetite at home from intermittent nausea, did drink about a sixpack a day up until about 2 weeks ago but he has stopped. - Again to be clear, the predominant physiology at play here does appear to be SIADH, however. - Fluid restrict, salt tabsslowly improving. Consider tolvaptan, but in discussion with nephrology it is often extremely difficult to get covered until/unless somebody has failed other measuresgiven that, add urea - he is essentially asymptomatic from thisprobably safe for home with the sodium continuing to improvewould want to see it at least in the high 120sdiscussed with him given that some sort of "line needs to be drawn" as long as he is [address] or rising further, it appears he would be safe for home - at discharge, would continue fluid restriction and salt tabs, and likely continue urea as well, with close outpatient BMP follow-ups #Lung CA Appears initially diagnosed in 2019 adenocarcinoma - underwent various treatments 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 Continue MiraLAX as well. Nausea is better today. Would continue a more aggressive bowel regimen after discharge #Cancer Pain Continue Oxycodone and Fenanyl Patch #Ambulatory Dysfunction/Weakness 2/2 hyponatremia vs decline in setting of significant metastatic disease PT/OT, but it does appear he will be safe for home #CKD-III Cr unremarkable at admission Follow kidney function periodically #COPD Continue Trelegy #CAD/HTN/HLD/PAD Continue atorvastatin, ASA, losartan, Zetia, metoprolol #GERD Continue Protonix FENGI: heart healthy, fluid restriction 1L Code status: DNR/DNI DVT prophylaxis: Lovenox Isolation: none Disposition: transfer to medical, home once his sodium is clearly stable at 125 and/or rising. Admission and Anticipated Discharge Date Admission Date: February 12, 2025 Subjective nausea feeling better. Eating well today. Starting think about life outside the hospital. Reviewed MRI with patient. Answered all questions to the best my ability and to his satisfaction. Review of Systems Review of Systems: All systems reviewed & are unremarkable except as noted in HPI & below Physical Exam Physical Exam: In general he is awake alert oriented pleasant no distress. HEENT normocephalic atraumatic mucous membranes moist. Breathing unlabored no accessory muscle use good effort. Skin without rashes pallor or icterus. Neuro without focal deficits. Results & Data Results & Data Vital Signs (Past 12 Hours) Vital Signs Temp Pulse Resp BP Pulse Ox O2 Del Method 02/15/25 11:22 98.1 F 90 18 145/75 H 93 Room Air 02/15/25 07:44 98.1 F 83 18 168/80 H 94 Room Air 02/15/25 02:41 98.1 F 75 18 148/78 H 94 Room Air PG Care Time/CCT Total # of Minutes Spent Total Time Spent with Patient: Total time spent is greater than 50% in coordination of care (as documented) at patient's floor/unit and/or counseling patient: Coding Level of Care Code 23104 SUB INP/OBS CARE 3/50MIN Diagnoses Acute hyponatremia E87.1 Generalized weakness R53.1 Elevated lactic acid level R79.89 Transaminitis R74.01 Ambulatory dysfunction R26.2 LAD (lymphadenopathy), mediastinal R59.0 Pulmonary emphysema, unspecified emphysema type J43.9 Emphysema type: unspecified Adenocarcinoma of lung C34.90 Port-A-Cath in place Z95.828 Stage 3b chronic kidney disease N18.32 Hypertension I10 Hypertension type: unspecified Hyperlipidemia, unspecified hyperlipidemia type E78.5 Hyperlipidemia type: unspecified Coronary artery disease involving [place] coronary artery of [place] heart without angina pectoris I25.10 Coronary Disease-Associated Artery/Lesion type: [place] artery [place] vs. transplanted heart: [place] heart Associated angina: without angina Hepatitis B B19.10 (7) COPD (chronic obstructive pulmonary disease) with emphysema Emphysema type: unspecified Qualified Code(s): J43.9 - Emphysema, unspecified (11) Hypertension Hypertension type: unspecified Qualified Code(s): I10 - Essential (primary) hypertension (12) Hyperlipidemia Hyperlipidemia type: unspecified Qualified Code(s): E78.5 - Hyperlipidemia, unspecified (13) CAD (coronary artery disease) Coronary Disease-Associated Artery/Lesion type: [place] artery [place] vs. transplanted heart: [place] heart Associated angina: without angina Qualified Code(s): I25.10 - Atherosclerotic heart disease of [place] coronary artery without angina pectoris
[2025-02-15] MEDS: UREA (UREA-NA) 15 GM PACK PO SCH (14:20)
[2025-02-15] MEDS: POLYETHYLENE (MIRALAX) 17 GM PACK PO SCH (15:59)
[2025-02-15 17:04] LABS: BUN Creatinine Ratio 19.6 (10-20); Calcium 9.6 mg/dl (8.6-10.3); Creatinine Clr Calc Pharmacy 72.9 ml/min; Potassium 4.5 mmol/L (3.5-5.1)
[2025-02-15 23:55] LABS: BUN Creatinine Ratio 34.9 (10-20); Calcium 9.3 mg/dl (8.6-10.3); Creatinine Clr Calc Pharmacy 82.2 ml/min; Potassium 4.4 mmol/L (3.5-5.1)
[2025-02-16 04:33] LABS: BUN Creatinine Ratio 27.7 (10-20); Calcium 9.7 mg/dl (8.6-10.3); Potassium 4.8 mmol/L (3.5-5.1)
[2025-02-16 07:16] VITALS: BP 134/76; PULSE 94; RESP 16; TEMP 98; O2SAT 95
[2025-02-16] MEDS: ACETAMINOPHEN 325 MG TAB PO PRN (07:39)
--- NOTE | 2025-02-16 08:29 | CT Scan Report ---
CT SCAN OF THE BRAIN WITHOUT IV CONTRAST CLINICAL HISTORY: Fall. Lung cancer. COMPARISON STUDY: MRI of the brain February 14, 2025. Head CT May 23, 2019. TECHNIQUE: Unenhanced axial CT scan of the brain was performed from the vertex to the skull base. A dose lowering technique was utilized adhering to the principles of ALARA. CT DOSE: 625.8 mGy.cm FINDINGS: Brain parenchyma: No acute intracranial hemorrhage, midline shift or mass effect is present. Small fo ci of encephalomalacia within the right frontal lobe representing old infarcts. The small lesions wit hin the left temporal lobe and septum pellucidum on MRI of February 14, [address] CT. Ventricles, sulci, cisterns: There is no hydrocephalus. The basal cisterns are patent. Calvarium: No calvarial fracture are identified. Sinuses and mastoids: There are secretions within the sphenoid sinuses. Orbits: The bony orbits are grossly intact. IMPRESSION: 1. No acute intracranial hemorrhage. 2. No calvarial fractures. 3. The small enhancing lesions within the left temporal lobe and septum pellucidum on MRI of February 14 are not well-visualized by CT. ACT 112: Negative or not required by law. Electronically signed by: Lenny Morrell M.D. 02/16/2025 8:28 AM
[2025-02-16 10:19] LABS: Urea Nitrogen, Random Urine 187 mg/dL
[2025-02-16 10:34] LABS: Calcium 9.9 mg/dl (8.6-10.3); Potassium 4.8 mmol/L (3.5-5.1)
[2025-02-16 10:40] LABS: BUN Creatinine Ratio 39.4 (10-20); Creatinine Clr Calc Pharmacy 71.4 ml/min
--- NOTE | 2025-02-16 14:13 | Discharge Summary ---
Discharge Summary Date of Service February 16, 2025 Principal Dx & Hospital Course #1 = Principal Diagnosis (1) Acute hyponatremia: (2) Generalized weakness: (3) Elevated lactic acid level: (4) Transaminitis: (5) Ambulatory dysfunction: (6) LAD (lymphadenopathy), mediastinal: (7) COPD (chronic obstructive pulmonary disease) with emphysema: (8) Adenocarcinoma of lung: (9) Port-A-Cath in place: (10) Stage 3b chronic kidney disease: (11) Hypertension: (12) Hyperlipidemia: (13) CAD (coronary artery disease): (14) Hepatitis B: Plan 69 yo male PMHx Stage IV lung CA with skeletal liver and mediastinal mets with 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 #Hyponatremia SIADH, probably a little bit low solute and polydipsia physiology that is waningpoor appetite at home from intermittent nausea, did drink about a sixpack a day up until about 2 weeks ago but he has stopped. - Again to be clear, the predominant physiology at play here does appear to be SIADH, however. - Fluid restrict, salt tabsslowly improving. Consider tolvaptan, but in discussion with nephrology it is often extremely difficult to get covered until/unless somebody has failed other measuresgiven that, add urea - he is essentially asymptomatic from thisprobably safe for home with the sodium continuing to improvewould want to see it at least in the high 120sdiscussed with him given that some sort of "line needs to be drawn" as long as he is [address] or rising further, it appears he would be safe for home - at discharge, would continue fluid restriction and salt tabs, and likely continue urea as well, with close outpatient BMP follow-ups #Lung CA Appears initially diagnosed in 2019 adenocarcinoma - underwent various treatments 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 Continue MiraLAX as well. Nausea is better today. Would continue a more aggressive bowel regimen after discharge #Cancer Pain Continue Oxycodone and Fenanyl Patch #Ambulatory Dysfunction/Weakness 2/2 hyponatremia vs decline in setting of significant metastatic disease PT/OT, but it does appear he will be safe for home #CKD-III Cr unremarkable at admission Follow kidney function periodically #COPD Continue Trelegy #CAD/HTN/HLD/PAD Continue atorvastatin, ASA, losartan, Zetia, metoprolol #GERD Continue Protonix FENGI: heart healthy, fluid restriction 1L Code status: DNR/DNI DVT prophylaxis: Lovenox Isolation: none Disposition: Home today, February 16. 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 For the last week he has been experiencing malaise, weakness, fatigue, vague abdominal pain, and decreased urination. He undergone various treatments for lung cancer since approximately 2019. Currently he endorses fatigue and vague abdominal pain. BARROS, CP, SOB, N/V/D, changes in urination. ED Course 1L NSS Labs reveal: Na 115, elevated lactate, transaminitis, CEA 17.2, CXR with new pulmonary edema Discharge Exam General-alert and oriented x3, no fever, no chills HEENT-head atraumatic and normocephalic, pupils equal and reactive to light, extraocular muscles intact Neck-no lymphadenopathy or thyromegaly, trachea midline Chest-clear to auscultation. No rales, wheezing or rhonchi Cardiac-regular rate and rhythm, normal S1 and S2 Abdomen-normal bowel sounds, no hepatosplenomegaly Extremities-no cyanosis, clubbing, or edema Neuro-cranial nerves II through XII intact, motor and sensory function within normal limits, strength symmetrical with generalized weakness, no focal deficits Psych-normal affect, normal mood Discharge Plan Discharge Items Patient Disposition: Home - Self-Care Reason For Visit: HYPONATREMIA Discharge Diagnosis: SIADH with hyponatremia, weakness, ambulatory dysfunction Activity: Resume your previous activity Non-emergency contact: Primary Care Provider Call non-emergency contact if: your symptoms worsen Follow-up/Referrals: Zhane Walsh MD [Primary Care Provider] - Diet: Regular Addtl Attending Provider Instructions: Continue with salt tablets. A prescription has been sent to your pharmacy and [place] Pending Studies at Discharge: No Stand-Alone Forms: My [facility], Smoking Cessation Medications and DC Order Prescriptions: New sodium chloride 1,000 mg Tablet,Soluble 2,000 mg PO TID Qty: 90 0RF Continued ezetimibe 10 mg tablet 10 mg PO DAILY Qty: 90 3RF atorvastatin 80 mg tablet 80 mg PO HS Qty: 90 3RF losartan 50 mg tablet 50 mg PO DAILY Qty: 90 3RF potassium chloride [Klor-Con 10] 10 mEq tablet extended release 10 meq PO BID Qty: 180 3RF metoprolol succinate 25 mg tablet extended release 24 hr 25 mg PO HS Qty: 90 3RF cilostazol 100 mg tablet 100 mg PO BID Qty: 180 3RF fentanyl 75 mcg/hr patch 72 hour 1 patch transdermal Q72H oxycodone 10 mg tablet 10 mg PO Q6H PRN (Reason: pain) nicotine 21 mg/24 hr patch 24 hour 1 patch transdermal Q24H Qty: 28 3RF multivitamin Tablet 1 tab PO DAILY dexamethasone 1 mg tablet 1 mg PO DAILY PRN (Reason: colitis flare) Qty: 60 1RF Trelegy Ellipta 200-62.5-25 mcg blister with device 1 inh inhalation DAILY Qty: 60 11RF pantoprazole 40 mg tablet,delayed release (DR/EC) 40 mg PO DAILY Qty: 90 3RF ondansetron HCl 8 mg tablet 8 mg PO DIRECTED PRN (Reason: Nausea) Qty: 60 11RF temazepam 30 mg capsule 30 mg PO HS aspirin [Johnathan Low Dose Aspirin] 81 mg Tablet,Delayed Release (Dr/Ec) 81 mg PO QAM ibuprofen [IBU-200] 200 mg Tablet 200 mg PO Q6H PRN (Reason: Pain) Discharge Orders: Discharge Order (Routine); Ordered 02/16/25 Ordered By: Krishna Matthew Admission Data Admit Date/Time: 04/25/25 20:26 Attending Provider: Krishna Matthew Admit Provider: Jamie Mackey Primary Care Provider: Zhane Walsh Other Providers: Cassi Holden Hospital Stay Data Consultations 02/12/25 19:09 ED Decision to Admit Stat Diagnostic Imagining Performed 02/14/25 12:56 MR brain wo/w con Routine 02/16/25 07:02 CT Brain [CT head/brain wo con] Stat Pending Results Patient Have Any Pending Studies at Discharge: No Discharge Instructions Given to Patient (Per Discharging Provider) Continue with salt tablets. A prescription has been sent to your pharmacy and [place] Total Time Total Time Spent Total Time Spent (In Minutes): 45 minutes Coding Level of Care Code 26277 INP/OBS DISCH >30 MIN Diagnoses Acute hyponatremia E87.1 Generalized weakness R53.1 Elevated lactic acid level R79.89 Transaminitis R74.01 Ambulatory dysfunction R26.2 LAD (lymphadenopathy), mediastinal R59.0 Pulmonary emphysema, unspecified emphysema type J43.9 Emphysema type: unspecified Adenocarcinoma of lung C34.90 Port-A-Cath in place Z95.828 Stage 3b chronic kidney disease N18.32 Hypertension I10 Hypertension type: unspecified Hyperlipidemia, unspecified hyperlipidemia type E78.5 Hyperlipidemia type: unspecified Coronary artery disease involving [place] coronary artery of [place] heart without angina pectoris I25.10 Coronary Disease-Associated Artery/Lesion type: [place] artery [place] vs. transplanted heart: [place] heart Associated angina: without angina Hepatitis B B19.10
== END 2025-02-16 15:59 | disposition home or self-care (01) | DRG 644 ==
LOC: ED 17:41 → SUATTDRO 20:26 → 2S 20:26 → 3N 02-15 17:02